=== PATIENT | female | born 1950 | race Caucasian/White ===

== ENCOUNTER 2020-08-13 07:34 | Outpatient (REF) | payer MEDICARE, OTHER, SELFPAY ==
[2020-08-13 09:30] LABS: Alanine Aminotransferase 15 U/L (0-31); Anion Gap 12 (12-20); Aspartate Amino Transferase 23 U/L (5-31); Blood Urea Nitrogen 21 mg/dL (9-16); Calcium 9.4 mg/dL (8.4-10.2); Carbon Dioxide 28 mmol/L (22-29); Chloride 105 mmol/L (96-108); Cholesterol 184 mg/dL; Estimated Glomerular Filt Rate 57; Glucose Fasting 91 mg/dL (60-99); HDL Cholesterol 71 mg/dL; LDL Cholesterol Calculated 97 mg/dl; Potassium 4.8 mmol/l (3.3-5.1); Sodium 140 mmol/L (135-145); Triglycerides 82 mg/dL
[2020-08-13 09:40] LABS: Vitamin D 25-OH Total 37.9 ng/mL (>30)
== END 2020-08-13 07:35 | disposition home or self-care (01) ==
LOC: HO.LAB 07:34
PROVIDERS: PCP Internal Medicine; Visit Provider Internal Medicine
DX: I10 Essential (primary) hypertension (principal); E78.5 Hyperlipidemia, unspecified; Z78.0 Asymptomatic menopausal state
CPT/HCPCS: 80048; 80061; 82306; 84450; 84460

== ENCOUNTER 2020-11-26 10:17 | Outpatient (REF) | payer MEDICARE, OTHER, SELFPAY ==
--- NOTE | 2020-11-26 | MM_ITS ---
EXAMINATION: MM SCREENING DIGITAL BREAST TOMOSYNTHESIS, BILATERAL CLINICAL INFORMATION: Screening. Asymptomatic. The lifetime risk of breast cancer based on the Tyrer-Cuzick Model is 3%. COMPARISON: Mammography: 01/16/2019, 11/15/2017 TECHNIQUE: Digital breast tomosynthesis is performed in both the craniocaudal and mediolateral oblique views along with computer-aided detection (CAD). Synthesized 2D images are generated from the tomosynthesis. FINDINGS: There are scattered areas of fibroglandular density (ACR BI-RADS breast composition Category b). Breast tissue composition borders on heterogeneously dense. There is fine fibronodular parenchymal pattern similar to prior studies. There is no interval mass or architectural abnormality or abnormal calcifications. No significant changes from prior studies. MM/MM tomosynthesis screening BI IMPRESSION: No mammographic evidence of malignancy. ASSESSMENT: BI-RADS 2: Benign RECOMMENDATION: Routine annual mammography screening. This patient's information was entered into a reminder system with a target due date for their next mammogram.
--- NOTE | 2020-11-26 10:20 | MM_ITS ---
EXAMINATION: BONE DENSITOMETRY CLINICAL INDICATION: Menopause. COMPARISON: Previous BD dated 10/08/2018 and baseline BD dated 12/27/2006. TECHNIQUE: Using a [employer] DXA System (software version: 13.1) manufactured by [employer], dual-energy x-ray absorptiometry was performed of the lumbar spine and left hip. The images are of good technical quality. Summary results are attached. FINDINGS: AP SPINE L1-L4: Current: BMD 0.952 g/cm2, Z-score -0.2, T-score -1.9, osteopenia, 9.3% decrease from previous, 1.3% increase from baseline (<5% change is not significant). Prior: BMD 1.050 g/cm2. Baseline: BMD 0.940 g/cm2. LEFT FEMUR, NECK: Current: BMD 0.833 g/cm2, Z-score 0.3, T-score -1.5, osteopenia. Prior: BMD 0.869 g/cm2. Baseline: BMD 0.845 g/cm2. LEFT FEMUR, TOTAL: Current: BMD 0.954 g/cm2, Z-score 1.1, T-score -0.4, normal, 1.3% decrease from previous, 1.3% increase from baseline (<5% change is not significant). Prior: BMD 0.967 g/cm2. Baseline: BMD 0.942 g/cm2. IDENTIFIED RISK FACTORS: Menopause. HISTORY OF FRACTURE: None listed. MEDICATIONS: Calcium or multivitamin. Vitamin D. MM/XR DEXA axial skeleton IMPRESSION: 1. DIAGNOSIS: Osteopenia based on the lowest T-score value of -1.9 in the lumbar spine applying World Health Organization criteria. 2. 10-YEAR FRACTURE RISK PREDICTION, FRAX: Major osteoporotic fracture (clinical spine, forearm, hip or shoulder) 10.4%. Hip fracture 1.6%. 3. Treatment Recommendations: NOF guidelines recommend consideration for treatment in postmenopausal women and men age 50 and older presenting with the following: -A hip or vertebral (clinical or morphometric) fracture. -T-score less than or equal to -2.5 at the femoral neck or spine after appropriate evaluation to exclude secondary causes. -Low bone mass at the hip or spine and a 10-year fracture probability by FRAX of greater than or equal to 3% for hip fracture or greater than or equal to 20% for major osteoporotic fracture based on the [place] adapted WHO algorithm. 4. Other Recommendations: All treatment decisions require clinical judgment and consideration of individual patient factors, including patient preferences, comorbidities, previous drug use, risk factors not captured in the FRAX model (e.g. frailty, falls, vitamin D deficiency, increased bone turnover, interval significant decline in bone density) and possible under or overestimation of fracture risk by FRAX. Additional medical evaluation for secondary cause of low bone mineral density may be appropriate. FUTURE SCAN RECOMMENDATION: People with diagnosed cases of osteoporosis or at high risk for fracture should have regular bone mineral density tests. For patients eligible for Medicare, routine testing is allowed once every 2 years. The testing frequency can be increased to one year for patients who have rapidly progressing disease, those who are receiving or discontinuing medical therapy to restore bone mass, or have additional risk factors.
== END 2020-11-26 10:18 | disposition home or self-care (01) ==
LOC: HO.MAMMO 10:17
PROVIDERS: PCP Internal Medicine; Visit Provider Internal Medicine
DX: Z13.820 Encounter for screening for osteoporosis (principal); Z78.0 Asymptomatic menopausal state; Z79.899 Other long term (current) drug therapy; Z12.31 Encounter for screening mammogram for malignant neoplasm of breast
CPT/HCPCS: 77063; 77067; 77080

== ENCOUNTER 2021-02-21 07:52 | Outpatient (REF) | payer MEDICARE, OTHER, SELFPAY ==
[2021-02-21 09:57] LABS: Alanine Aminotransferase 15 U/L (0-31); Anion Gap 14 (12-20); Aspartate Amino Transferase 21 U/L (5-31); Blood Urea Nitrogen 19 mg/dL (9-16); Calcium 9.3 mg/dL (8.4-10.2); Carbon Dioxide 26 mmol/L (22-29); Chloride 107 mmol/L (96-108); Cholesterol 193 mg/dL; Estimated Glomerular Filt Rate > 60; Glucose Fasting 93 mg/dL (60-99); HDL Cholesterol 75 mg/dL; LDL Cholesterol Calculated 103 mg/dl; Potassium 4.7 mmol/L (3.3-5.1); Sodium 142 mmol/L (135-145); Triglycerides 78 mg/dL
[2021-02-21 10:20] LABS: Vitamin D 25-OH Total 41.4 ng/mL (>30)
== END 2021-02-21 07:53 | disposition home or self-care (01) ==
LOC: HO.LAB 07:52
PROVIDERS: PCP Internal Medicine; Visit Provider Internal Medicine
DX: E78.5 Hyperlipidemia, unspecified (principal); I10 Essential (primary) hypertension; D12.6 Benign neoplasm of colon, unspecified; M85.80 Other specified disorders of bone density and structure, unspecified site; Z78.0 Asymptomatic menopausal state
CPT/HCPCS: 36415; 80048; 80061; 82306; 84450; 84460

== ENCOUNTER 2021-07-12 07:23 | Day surgery (SDC) | payer MEDICARE, OTHER, SELFPAY ==
[2021-07-05 15:08] VITALS: BMI 24.9
--- NOTE | 2021-07-08 09:19 | HO.ANESPROP2 ---
Documented by User: Talya Godfrey NP 07/08/21 09:21 HPI - Anesthesia Eval Consult details Narrative: 71yo F for Colonoscopy PMFSH Active Problems Active Problems: All Active Problems (Updated 07/05/21 @ 14:57 by Sonal Gillis RN) Menopause (Acute) Tubular adenoma of colon (Acute) Osteopenia (Acute) Essential hypertension (Acute) Hyperlipidemia (Acute) Past Medical History Medical History COVID-19 vaccine series completed Essential hypertension Hyperlipidemia Menopause Osteopenia Tubular adenoma of colon Family History Family History Father HTN (hypertension) Diabetes mellitus Bone cancer Mother Hyperlipidemia Brother No problems noted. Brother No problems noted. Brother No problems noted. Son No problems noted. Daughter No problems noted. Surgical History Surgical History (Updated 07/05/21 @ 15:00 by Sonal Gillis RN) H/O colonoscopy History of tubal ligation Social History Social History (Updated 07/05/21 @ 15:01 by Sonal Gillis RN) Household Members: Spouse Patient Tobacco Use Status: Never used Tobacco Use of substances other than those prescribed or required for medical reasons: No Have you been hit, kicked, punched, or otherwise hurt by someone within the past year? If so, by whom?: No Are you DNR?: No Advance Directives: No Advance Directives Information Provided: Yes (states does not have official HCP-is ) Advance Directives on File: No Recently lost weight without trying: No Eating poorly because of decreased appetite: No Nutrition Risks: No Nutritional Risk Poor oral hygiene: No Meds Allergies Allergy/AdvReac Type Severity Reaction Status Date / Time No Known Allergies Allergy Verified 07/12/21 07:26 Home Medications Medication Instructions Recorded Confirmed Last Taken Type cholecalciferol (vitamin D3) 25 25 mcg PO DAILY 08/19/20 07/05/21 Unknown History mcg (1,000 unit) capsule flu vacc 2019-(64yr 0.5 ml IM DIRECTED 11/04/20 02/24/21 Unknown History up)-MF59C(PF) 60 mcg(15 mcgx4)/0.5 mL IM syringe Exam Exam Date and Time: July 08, 2021 0919 Height,Weight and Vital Signs: Height 5 ft 4 in Weight 65.771 kg Assessment and Plan Assessment Anesthesia Assessment: Chart Reviewed Documented by User: Nila Hogue MD 07/12/21 07:51 [facility] Past Medical History Medical History COVID-19 vaccine series completed Essential hypertension Hyperlipidemia Menopause Osteopenia Tubular adenoma of colon Family History Family History Father HTN (hypertension) Diabetes mellitus Bone cancer Mother Hyperlipidemia Brother No problems noted. Brother No problems noted. Brother No problems noted. Son No problems noted. Daughter No problems noted. Family history of problems with anesthesia: No Surgical History Surgical History (Updated 07/05/21 @ 15:00 by Sonal Gillis RN) H/O colonoscopy History of tubal ligation History of Problems with Anesthesia: No Social History Social History (Updated 07/05/21 @ 15:01 by Sonal Gillis RN) Household Members: Spouse Patient Tobacco Use Status: Never used Tobacco Use of substances other than those prescribed or required for medical reasons: No Have you been hit, kicked, punched, or otherwise hurt by someone within the past year? If so, by whom?: No Are you DNR?: No Advance Directives: No Advance Directives Information Provided: Yes (states does not have official HCP-is ) Advance Directives on File: No Recently lost weight without trying: No Eating poorly because of decreased appetite: No Nutrition Risks: No Nutritional Risk Poor oral hygiene: No Meds Allergies Allergy/AdvReac Type Severity Reaction Status Date / Time No Known Allergies Allergy Verified 07/12/21 07:26 Home Medications Medication Instructions Recorded Confirmed Last Taken Type cholecalciferol (vitamin D3) 25 25 mcg PO DAILY 08/19/20 07/05/21 Unknown History mcg (1,000 unit) capsule flu vacc 2020-21(64yr 0.5 ml IM DIRECTED 11/04/20 02/24/21 Unknown History up)-MF59C(PF) 60 mcg(15 mcgx4)/0.5 mL IM syringe Exam Height,Weight and Vital Signs: Height 5 ft 4 in Weight 65.771 kg Vital Signs Temp Pulse Resp BP Pulse Ox 07/12/21 07:31 97.9 F 73 18 104/70 98 Airway Mallampati Class: II TM Dist: >3cm Neck ROM: Full Loose/Missing/Broken Teeth: No Heart: RRR Lungs: CTAB Assessment and Plan Assessment Anesthesia Assessment: Anesthesia Plan Discussed Final Anesthetic Review Family History of Problems with Anesthesia: No History of Problems with Anesthesia: No NPO: Yes ASA Class: II Final Preanesthetic Review: No Changes in Pt Med Stat, Meds/Allgs Chart Reviewed, Consent Obtained/Reviewed and Anes Risks/Benef Reviewed Patient Risk: Low Procedure Risk: Low Assessment/Block/Sedation in SS: Assess/Block/Sedation-SS Anesthetic Plan Anesthetic Plan: MAC: Disposition: Standard PACU
[2021-07-12 07:31] VITALS: BP 104/70; PULSE 73; RESP 18; TEMP 36.6; O2SAT 98
[2021-07-12] MEDS: Lactated Ringers 1,000 ML 100 ML IVCONT (07:42)
--- NOTE | 2021-07-12 07:54 | MHC.SHP ---
Pre-Procedural Eval Section A Date of Service: 07/12/21 Section B Chief Complaint: screening Details of Present Illness: see H&P no changes Relevant Family History (Specify if Yes): No Relevant Social History: None Present Medications: see Short Stay Collaborative assessment Medical History: No relevant PMH History of Previous Operations: No relevant previous surgery Allergies: Allergies Allergy/AdvReac Type Severity Reaction Status Date / Time No Known Allergies Allergy Verified 07/12/21 07:26 Review of Systems Sugical H&P ROS: Negative: Constitution, Cardiovascular, Respiratory, Neurological, Psychiatric, Hem-Onc, Allergic/Immunologic, Gastrointestinal, Genitourinary, Musculoskeletal, Integumentary, Endocrine and Eyes/Ears/Nose/Throat Exam Surgical H&P Exam: Normal: HEENT, Normal: Heart, Normal: Lungs, Normal: Extremities, Normal: Abdomen, Normal: Skin and Normal: Neurological Plan Diagnosis/Plan: Unchanged I have reviewed the history and physical and performed a pertinent physical examination on my patient. No changes have occurred unless specified.
[2021-07-12 08:21] VITALS: BP 83/49; PULSE 66; RESP 16; TEMP 36.3; O2SAT 99
--- NOTE | 2021-07-12 08:26 | PM.OP ---
Brief Operative Note Date of Service: 07/12/21 Pre-op diagnosis: screening Post-op diagnosis: same Procedure: colonoscopy Surgeon: Mark Dubon Anesthesia: MAC Was an Tractor Mechanic Helper used for this Procedure?: No Estimated blood loss (mL): 0 Pathology: none sent Condition: stable Disposition: PACU
[2021-07-12 08:35] VITALS: BP 104/66; PULSE 69; RESP 16; TEMP 36.3; O2SAT 98
--- NOTE | 2021-07-12 08:48 | OP_ITS ---
SURGEON: Mark Dubon MD INDICATIONS: Colon cancer screening, personal history of colon polyps, and family history of colon polyps. PREOPERATIVE DIAGNOSIS: POSTOPERATIVE DIAGNOSIS: PROCEDURE PERFORMED: Colonoscopy to the terminal ileum. ESTIMATED BLOOD LOSS: COMPLICATIONS: ANESTHESIA: ASSISTANTS: SPECIMENS: MEDICATIONS: Monitored anesthesia care. DESCRIPTION OF PROCEDURE: History and physical performed. The risks and benefits of the procedure were explained to the patient. Informed consent was obtained. The patient was placed in left lateral decubitus position. A digital rectal exam was performed and was found to be normal. The Olympus pediatric video colonoscope was introduced into the rectum and advanced to the cecum without difficulty. The cecum was identified by transillumination, palpation, and identification of ileocecal valve. Examination was performed and the scope was removed. She tolerated the procedure well and was taken to recovery area in stable condition. FINDINGS: The terminal ileum was examined and appeared normal. The visualized colonic mucosa was normal. The quality of the prep was good. No polyps were identified. Retroflexed examination showed small internal hemorrhoids. There was mild to moderate sigmoid diverticulosis. IMPRESSION: Normal colonoscopy. RECOMMENDATIONS: 1. Follow up as needed. 2. Repeat colonoscopy is recommended in 5 years because of family history. MD MARCIO Mendez/VENICE / [id number]
== END 2021-07-12 09:20 | disposition home or self-care (01) ==
PROVIDERS: PCP Internal Medicine; Visit Provider Internal Medicine Gastroenterology
PROC: 0DJD8ZZ Inspection of Lower Intestinal Tract, Via Natural or Artificial Opening Endoscopic (ICD-10-PCS; CPT 45378; principal; 2021-07-12 08:00)
DX: Z12.11 Encounter for screening for malignant neoplasm of colon (principal); Z86.010 Personal history of colon polyps; Z83.71 Family history of colonic polyps; K57.30 Diverticulosis of large intestine without perforation or abscess without bleeding; K64.8 Other hemorrhoids; I10 Essential (primary) hypertension; E78.00 Pure hypercholesterolemia, unspecified; Z79.899 Other long term (current) drug therapy
CPT/HCPCS: G0105

== ENCOUNTER 2021-08-31 08:19 | Outpatient (REF) | payer MEDICARE, OTHER, SELFPAY ==
[2021-08-31 09:07] LABS: Alanine Aminotransferase 14 U/L (0-31); Anion Gap 12 (12-20); Aspartate Amino Transferase 24 U/L (5-31); Blood Urea Nitrogen 18 mg/dL (9-16); Calcium 9.8 mg/dL (8.4-10.2); Carbon Dioxide 28 mmol/L (22-29); Chloride 106 mmol/L (96-108); Cholesterol 193 mg/dL; Estimated Glomerular Filt Rate 59; Glucose Fasting 96 mg/dL (60-99); HDL Cholesterol 70 mg/dL; LDL Cholesterol Calculated 110 mg/dl; Potassium 4.8 mmol/L (3.3-5.1); Sodium 141 mmol/L (135-145); Triglycerides 69 mg/dL
[2021-08-31 09:30] LABS: Vitamin D 25-OH Total 36.6 ng/mL (>30)
== END 2021-08-31 08:20 | disposition home or self-care (01) ==
LOC: HO.LAB 08:19
PROVIDERS: PCP Internal Medicine; Visit Provider Internal Medicine
DX: E78.5 Hyperlipidemia, unspecified (principal); I10 Essential (primary) hypertension; M85.80 Other specified disorders of bone density and structure, unspecified site; Z78.0 Asymptomatic menopausal state
CPT/HCPCS: 36415; 80048; 80061; 82306; 84450; 84460

== ENCOUNTER 2022-02-11 07:59 | Outpatient (REF) | payer MEDICARE, OTHER, SELFPAY ==
--- NOTE | ~2022-02-11 | MM_ITS ---
EXAMINATION: MM SCREENING DIGITAL BREAST TOMOSYNTHESIS, BILATERAL CLINICAL INFORMATION: Screening. Asymptomatic. The lifetime risk of breast cancer based on the Tyrer-Cuzick Model is 3%. COMPARISON: Mammography: 11/26/2020, 01/16/2019, 11/15/2017 TECHNIQUE: Digital breast tomosynthesis is performed in both the craniocaudal and mediolateral oblique views along with computer-aided detection (CAD). Synthesized 2D images are generated from the tomosynthesis. Additional right cleavage view is provided. FINDINGS: The breasts are heterogeneously dense, which may obscure small masses (ACR BI-RADS breast composition Category c). There is fine fibronodular parenchymal pattern. Denser breast tissue composition is predominantly in the anterior breasts. The parenchymal pattern is similar to prior studies. There is no developing density. No architectural abnormality. The axilla and skin contours are unremarkable. MM/MM tomosynthesis screening BI IMPRESSION: No mammographic evidence of malignancy. ASSESSMENT: BI-RADS 1: Negative RECOMMENDATION: Routine annual mammography screening. This patient's information was entered into a reminder system with a target due date for their next mammogram.
== END 2022-02-11 08:00 | disposition home or self-care (01) ==
LOC: HO.MAMMO 07:59
PROVIDERS: PCP Internal Medicine; Visit Provider Internal Medicine
DX: Z12.31 Encounter for screening mammogram for malignant neoplasm of breast (principal)
CPT/HCPCS: 77063; 77067

== ENCOUNTER 2022-03-28 10:26 | Outpatient (REF) | payer MEDICARE, OTHER, SELFPAY ==
[2022-03-28 11:22] LABS: Alanine Aminotransferase 15 U/L (0-31); Anion Gap 12 (12-20); Aspartate Amino Transferase 24 U/L (5-31); Blood Urea Nitrogen 22 mg/dL (9-16); Calcium 9.5 mg/dL (8.4-10.2); Carbon Dioxide 27 mmol/L (22-29); Chloride 107 mmol/L (96-108); Cholesterol 200 mg/dL; Estimated Glomerular Filt Rate > 60; Glucose Fasting 92 mg/dL (60-99); HDL Cholesterol 71 mg/dL; LDL Cholesterol Calculated 115 mg/dl; Potassium 4.9 mmol/L (3.3-5.1); Sodium 141 mmol/L (135-145); Triglycerides 71 mg/dL
[2022-03-28 11:45] LABS: Vitamin D 25-OH Total 39.7 ng/mL (>30)
== END 2022-03-28 10:27 | disposition home or self-care (01) ==
LOC: HO.LAB 10:26
PROVIDERS: PCP Internal Medicine; Visit Provider Internal Medicine
DX: E78.5 Hyperlipidemia, unspecified (principal); I10 Essential (primary) hypertension; M85.80 Other specified disorders of bone density and structure, unspecified site; Z78.0 Asymptomatic menopausal state
CPT/HCPCS: 36415; 80048; 80061; 82306; 84450; 84460

== ENCOUNTER 2022-09-04 07:49 | Outpatient (REF) | payer MEDICARE, OTHER, SELFPAY ==
[2022-09-04 09:00] LABS: Alanine Aminotransferase 13 U/L (0-31); Anion Gap 15 (12-20); Aspartate Amino Transferase 21 U/L (5-31); Blood Urea Nitrogen 19 mg/dL (9-16); Calcium 9.5 mg/dL (8.4-10.2); Carbon Dioxide 26 mmol/L (22-29); Chloride 106 mmol/L (96-108); Cholesterol 196 mg/dL; Estimated Glomerular Filt Rate > 60; Glucose Fasting 85 mg/dL (60-99); HDL Cholesterol 75 mg/dL; LDL Cholesterol Calculated 109 mg/dl; Potassium 5.1 mmol/L (3.3-5.1); Sodium 142 mmol/L (135-145); Triglycerides 64 mg/dL
[2022-09-04 09:24] LABS: Vitamin D 25-OH Total 35.7 ng/mL (>30)
== END 2022-09-04 07:50 | disposition home or self-care (01) ==
LOC: HO.LAB 07:49
PROVIDERS: PCP Internal Medicine; Visit Provider Internal Medicine
DX: I10 Essential (primary) hypertension (principal); E78.5 Hyperlipidemia, unspecified; N95.9 Unspecified menopausal and perimenopausal disorder; M85.80 Other specified disorders of bone density and structure, unspecified site
CPT/HCPCS: 36415; 80048; 80061; 82306; 84450; 84460

== ENCOUNTER 2023-02-13 09:39 | Outpatient (REF) | payer MEDICARE, OTHER, SELFPAY ==
--- NOTE | ~2023-02-13 | MM_ITS ---
EXAMINATION: MM SCREENING DIGITAL BREAST TOMOSYNTHESIS, BILATERAL CLINICAL INFORMATION: Screening. Asymptomatic. The lifetime risk of breast cancer based on the Tyrer-Cuzick Model is 3%. COMPARISON: Mammography: 02/11/2022, 11/26/2020, 01/16/2019 TECHNIQUE: Digital breast tomosynthesis is performed in both the craniocaudal and mediolateral oblique views along with computer-aided detection (CAD). Synthesized 2D images are generated from the tomosynthesis. Additional left CC view is provided. FINDINGS: The breasts are heterogeneously dense, which may obscure small masses (ACR BI-RADS breast composition Category c). Fine fibronodular parenchymal pattern is similar to prior studies. There is no developing density or or architectural abnormality. There are no significant masses, abnormal calcifications, or other abnormalities. The axilla and skin contours are unremarkable. No significant changes. MM/MM tomosynthesis screening BI IMPRESSION: No mammographic evidence of malignancy. ASSESSMENT: BI-RADS 1: Negative RECOMMENDATION: Routine annual mammography screening. This patient's information was entered into a reminder system with a target due date for their next mammogram.
== END 2023-02-13 09:40 | disposition home or self-care (01) ==
LOC: HO.MAMMO 09:39
PROVIDERS: PCP Internal Medicine; Visit Provider Internal Medicine
DX: Z12.31 Encounter for screening mammogram for malignant neoplasm of breast (principal)
CPT/HCPCS: 77063; 77067

== ENCOUNTER 2023-03-05 08:36 | Outpatient (REF) | payer MEDICARE, OTHER, SELFPAY ==
[2023-03-05 10:06] LABS: Alanine Aminotransferase 19 U/L (0-31); Aspartate Amino Transferase 25 U/L (5-31); Cholesterol 173 mg/dL; HDL Cholesterol 73 mg/dL; LDL Cholesterol Calculated 89 mg/dl; Triglycerides 57 mg/dL; Vitamin D 25-OH Total 42.8 ng/mL (>30)
== END 2023-03-05 08:37 | disposition home or self-care (01) ==
LOC: HO.LAB 08:36
PROVIDERS: PCP Internal Medicine; Visit Provider Internal Medicine
DX: E78.5 Hyperlipidemia, unspecified (principal); I10 Essential (primary) hypertension; M85.80 Other specified disorders of bone density and structure, unspecified site; Z78.0 Asymptomatic menopausal state
CPT/HCPCS: 36415; 80061; 82306; 84450; 84460

== ENCOUNTER 2023-09-24 07:28 | Outpatient (REF) | payer MEDICARE, OTHER, SELFPAY ==
[2023-09-24 08:50] LABS: Alanine Aminotransferase 14 U/L (0-31); Anion Gap 13 (12-20); Aspartate Amino Transferase 21 U/L (5-31); Blood Urea Nitrogen 15 mg/dL (9-16); Calcium 9.7 mg/dL (8.4-10.2); Carbon Dioxide 28 mmol/L (22-29); Chloride 106 mmol/L (96-108); Cholesterol 216 mg/dL (<200); Estimated Glomerular Filt Rate > 60; Glucose Fasting 105 mg/dL (60-99); HDL Cholesterol 82 mg/dL (>40); LDL Cholesterol Calculated 119 mg/dL (<100); Potassium 4.7 mmol/L (3.3-5.1); Sodium 142 mmol/L (135-145); Triglycerides 75 mg/dL (<150)
[2023-09-24 09:05] LABS: Vitamin D 25-OH Total 40.4 ng/mL (>30)
== END 2023-09-24 07:29 | disposition home or self-care (01) ==
LOC: HO.LAB 07:28
PROVIDERS: PCP Internal Medicine; Visit Provider Internal Medicine
DX: M85.80 Other specified disorders of bone density and structure, unspecified site (principal); I10 Essential (primary) hypertension; E78.5 Hyperlipidemia, unspecified; Z78.0 Asymptomatic menopausal state
CPT/HCPCS: 36415; 80048; 80061; 82306; 84450; 84460

== ENCOUNTER 2023-10-02 08:54 | Outpatient (AMB) | payer MEDICARE, OTHER, SELFPAY ==
--- NOTE | 2023-10-02 08:59 | AM.OFFVISMDC ---
Intake Vital Signs 10/02/23 09:04 Height 5 ft 4 in Weight 141 lb 8 oz BMI 24.3 BP 120/88 Blood Pressure Location Lt brachial Position Sitting Pulse 71 Pulse Source Pulse Oximeter Pulse Oximetry (%) 99 Oxygen Delivery Method Room Air Intake Visit Reasons: SWV [id number] Allergies No Known Allergies Allergy (Verified 10/02/23 14:56) Medication List - Last Reconciled 10/02/23 by Di Gomes MD cholecalciferol (vitamin D3) 25 mcg PO DAILY levocetirizine 5 mg PO BEDTIME metoprolol succinate ER 25 mg PO DAILY simvastatin 20 mg PO Q OTHER DAY HPI SWV G0439 HPI Details SWV ? 73-year-old lady here today for her subsequent? Annual Wellness Visit, initial visit.? She is up-to-date with her screening mammogram, done [id number] anti 3 with negative findings, no longer gets cervical cancer screenings. Her last colonoscopy was done 07/12/[address] Dubon, to be repeated again in 5 years. She had a bone density scan done 11/26/2020 which showed presence of osteopenia in her lumbar spine. She is up-to-date with her flu shot, pneumococcal vaccination, Tdap, and needs her COVID booster and her Shingrix vaccine to be scheduled . She already had her MOLST and healthcare proxy done a year ago, , and copy are in her medical record ? Medical / Social History Reviewed? Past Medical History ?Yes . ? [place] of Care / Care Team list updated ?Yes . ? Surgical/Hospitalization History ?Yes . ? Current Medications (including OTC and supplements) ?Yes . ? Family History ?Yes . ? Tobacco Control form ?Yes . ? AUDIT-C (Alcohol use) form ?Yes . ? Illicit drug use in Social History ?Yes . ? Current diagnosis of depression? ?No ? Appropriate PHQ2/PHQ9 completed ?Yes . ? Data entered by ?[employer] and reviewed by provider ? Fall Risk ? Fall History? Have you had any falls with injury in the past year? ?No . ? Have you had two or more falls in the past year? ?No . ? Fall Risk Assessment: ?No falls in the past year . ? HRA filled out by the patient, reviewed by Provider and scanned. ?SWV ? Balance? Romberg ?Yes . ? Tandem walk ?Yes . ? Walk and Turn ?Yes . ? Rise from sit to stand ?Yes . ?Vision? Corrective lens ?Yes ? Vision screen ? Up-to-date, she sees Dr. Simons ?Hearing? Whisper test ?pass . ?Written Plan?Completed. See Patient Documents.? PFSH Medical History Osteopenia of multiple sites COVID-19 vaccine series completed Menopause Tubular adenoma of colon Osteopenia Essential hypertension Hyperlipidemia Surgical History H/O colonoscopy History of tubal ligation Family History Father HTN (hypertension) Diabetes mellitus Bone cancer Mother Hyperlipidemia Brother No problems noted. Brother No problems noted. Brother No problems noted. Son No problems noted. Daughter No problems noted. Social History Household Members: Spouse Housing: House Patient Tobacco Use Status: Never used Tobacco e-Cigarette/Vaping Use: Never Used Current occupational status: retired Cognitive needs: No Hearing needs: No Vision needs: Yes Questionnaire Medicare Wellness Checkup [age] What gender do you identify with?: female During the past 4 weeks, how much have you been bothered by emotional problems such as feeling anxious, depressed, irritable, sad or downhearted, and blue?: not at all During the past 4 weeks, has your physical & emotional health limited your social activities with family, friends, neighbors, or groups?: not at all During the past 4 weeks, how much bodily pain have you generally had?: no pain During the past 4 weeks, was someone available to help you if you needed & wanted help?: yes, as much as I wanted During the past 4 weeks, what was the hardest physical activity you could do for at least 2 minutes?: moderate Can you get to places out of walking distance without help? (For eg., can you travel alone on buses, taxis or drive your car?): Yes Can you go shopping for groceries or clothes without someone's help?: Yes Can you prepare your own meals?: Yes Can you do your housework without help?: Yes Because of any health problems, do you need the help of another person with your personal care needs such as eating, bathing, dressing or getting around the house?: No Can you handle your own money without help?: Yes During the past 4 weeks, how would you rate your health in general?: excellent During the past 4 weeks how have things been going for you?: very well; could hardly better Are you having difficulties driving your car?: no Do you always fasten your seat belt when you are in a car?: yes, usually During past 4 weeks, have you been bothered by the following: never: Falling or dizzy when standing up, Sexual problems?, Trouble eating well?, Teeth or denture problems? and Problems using the telephone? and seldom: Tiredness or fatigue? Have you fallen 2 or more times in the past year?: No Are you afraid of falling?: No Are you a smoker?: no During the past 4 weeks, how many drinks of wine, beer, or other alcoholic beverages did you have?: 2-5 drinks per week Do you exercise for about 20 minutes 3 or more times a week?: no, I usually do not exercise this much Have you been given information to help with the following?: no: Hazards in your house that might hurt you? and no: Keeping track of your medications? How often do you have trouble taking medicines the way you have been told to take them?: I always take medicine as prescribed How confident are you that you can control & manage most of your health problems?: very confident What is your race?: White Mini Mental State Exam (MMSE) Orientation What is the (year) (season) (date) (day) (month)?: year (2022), season (Fall), date (10/02/2023), day (Sunday) and month (September) Where are we (state) (county) (town or city) (hospital) (floor)?: state ([place]), county ([place]), town or city ([place]) and hospital/clinic ([facility]) Score Score: 9 Activity of Daily Living Bathing - sponge bath, tub bath or shower: receives no assistance (gets in/out by self, if usual bathing means Dressing - getting clothes from closets & drawers, including inner/outer garments & fasteners.: gets clothes & gets completely dressed without help Toileting - going to the 'toilet room' for urine/bowel elimination & cleaning self/arranging clothes: goes to toilet room, cleans self, arranges clothes without help Transfer: moves in & out of bed and chair without help (may use support object) Continence: controls urination/bowel movements completely by self Feeding: feeds self without help Total Score: 0 Information obtained from: patient Using telephone: independent Traveling: independent Shopping: independent Preparing meals: independent Housework: independent Taking medicine: independent Managing money: independent PHQ-9 Over the last 2 weeks, how often have you been bothered by any of the following problems? 1. Little interest or pleasure in doing things: not at all 2. Feeling down, depressed, or hopeless: not at all 3. Trouble falling or staying asleep, or sleeping too much: several days 4. Feeling tired or having little energy: several days 5. Poor appetite or overeating: not at all 6. Feeling bad about yourself - or that you are a failure or have let yourself or your family down: not at all 7. Trouble concentrating on things, such as reading the newspaper or watching television: not at all 8. Moving or speaking so slowly that other people could have noticed. Or the opposite - being so fidgety or restless that you have been moving around a lot more than usual: not at all 9. Thoughts that you would be better off or of hurting yourself in some way: not at all Total score: 2 Depression Screening Interpretation: Negative Depression Screening Done: Yes [id number] - PHQ-9 Billing: Yes Source: Developed by Drs. Krish Zarate, Mariana Brower, Jarrell Shaw and colleagues, with an educational elva from [employer]. Physical Exam Vital Signs: Last Vital Signs Pulse 71 10/02/23 09:04 BP 120/88 10/02/23 09:04 Pulse Ox 99 10/02/23 09:04 Oxygen Delivery Method Room Air 10/02/23 09:04 BMI result Body Mass Index 24.3 Results Reviewed Results Reviewed: ENTERED: 09/24/2337 [facility] [address]: ORDERED: Met Prof Fast, AST, ALT, Lipid Panel, Vitamin D 25-OH Test Result Flag Reference Site Sodium 142 135-145 mmol/L Potassium 4.7 3.3-5.1 mmol/L CL 106 96-108 mmol/L CO2 28 22-29 mmol/L Gap 13 12-20 BUN 15 9-16 mg/dL Creat 0.87 0.5-1.4 mg/dL EGFR > 60 NOTE: For -Prydeinig individuals, multiply the result by 1.210. Chronic Kidney Disease: Estimated GFR < 60 mL/min/1.73m2 Severe Kidney Disease: Estimated GFR < 15 mL/min/1.73m2 FBS 105 H 60-99 mg/dL A fasting glucose from 100-125 mg/dl is considered impaired (pre-diabetes). CA 9.7 8.4-10.2 mg/dL AST (GOT) 21 5-31 U/L ALT (GPT) 14 0-31 U/L Triglyceride 75 <150 mg/dL Desirable Triglyceride: less than 150 mg/dL Borderline High Triglyceride 150-199 mg/dL High Triglyceride: 200-499 mg/dL Very High Triglyceride: greater than or equal to 5OO mg/dL Cholesterol 216 H <200 mg/dL Desirable Cholesterol: less than 200 mg/dL Borderline High Cholesterol: 200-239 mg/dL High Cholesterol: greater than 239 mg/dL LDL Calculated 119 H <100 mg/dL Desirable LDL: less than 100 mg/dL Near Optimal/Above Optimal LDL: 110-129 mg/dL Borderline High LDL: 130-159 mg/dL High LDL: 160-189 mg/dL Very High LDL: greater than or equal to 190 mg/dL HDL 82 >40 mg/dL Desirable HDL: greater than 40 mg/dL Note: This HDL assay may give artificially low results in patients with liver disease. Vit D 25-OH Tot 40.4 >30 ng/mL Health Based Reference Values* < 20 ng/mL Deficient 20-30 ng/mL Insufficient > 30 ng/mL Sufficient Assessment & Plan Assessment & Plan (1) Encounter for subsequent annual wellness visit (AWV) in Medicare patient: Code(s): Z00.00 - Encounter for general adult medical examination without abnormal findings Plan: Medical wellness checklist discussed with patient, reviewed and updated, copy given. Advanced directives already completed , and on file. (2) Osteopenia of multiple sites: Code(s): M85.89 - Other specified disorders of bone density and structure, multiple sites Plan: Bone density scan ordered, to be scheduled together with next mammogram appointment (3) Tubular adenoma of colon: Comment: Excised during screening colonoscopy 10/13/[address] Dubon Last colonoscopy done by Dr. Reis for 07/12/2021 showed normal findings, but repeat in 5 years due to positive family history Code(s): D12.6 - Benign neoplasm of colon, unspecified (4) Essential hypertension: Code(s): I10 - Essential (primary) hypertension Plan: Continue metoprolol succinate ER 25 mg daily (5) Hyperlipidemia: Code(s): E78.5 - Hyperlipidemia, unspecified Qualifiers: Hyperlipidemia type: pure hypercholesterolemia Qualified Code(s): E78.00 - Pure hypercholesterolemia, unspecified Plan: Continue with simvastatin 20 mg 1 tablet every other day Orders: Orders XR DEXA axial skeleton 10/02/23 M85.89 - Other specified disorders of bone density and structure, multiple sites, Z78.0 - Asymptomatic menopausal state Quality Reporting (2019) Depression/Bipolar (159/160/161/177) PHQ-9: Total score: 2 Coding Level of Care Code Medicare Subsequent (G0439) Diagnoses Encounter for subsequent annual wellness visit (AWV) in Medicare patient Z00.00 Osteopenia of multiple sites M85.89 Tubular adenoma of colon D12.6 Essential hypertension I10 Pure hypercholesterolemia E78.00 Hyperlipidemia type: pure hypercholesterolemia CPT Codes Advance Care Planning - Advance Care Planning discussion: On file, no changes ([id number]) Advance Care Planning - Time spent: 1-15 minutes, on File ([id number]) Advance Care Planning Advance Care Planning discussion: On file, no changes Date of discussion: 10/02/23 Who was present: Patient Forms completed: Health Care Proxy and MOLST Time spent: 1-15 minutes, on File Actual minutes spent: 15
[2023-10-02 09:04] VITALS: BP 120/88; PULSE 71; O2SAT 99; BMI 24.3
== END 2023-10-02 11:54 | disposition home or self-care (01) ==
PROVIDERS: PCP Internal Medicine; Visit Provider Internal Medicine
DX: Z00.00 Encounter for general adult medical examination without abnormal findings (principal); M85.89 Other specified disorders of bone density and structure, multiple sites; D12.6 Benign neoplasm of colon, unspecified; I10 Essential (primary) hypertension; E78.00 Pure hypercholesterolemia, unspecified
CPT/HCPCS: 1123F; G0439

== ENCOUNTER 2024-02-19 08:40 | Outpatient (REF) | payer MEDICARE, OTHER, SELFPAY ==
--- NOTE | ~2024-02-19 | MM_ITS ---
EXAMINATION: BONE DENSITOMETRY CLINICAL INDICATION: Osteopenia. COMPARISON: Previous BD dated 11/26/2020 and baseline BD dated 12/27/2006. TECHNIQUE: Using a [employer] DXA System (software version: 13.1) manufactured by [employer], dual-energy x-ray absorptiometry was performed of the lumbar spine and left hip. The images are of good technical quality. Summary results are attached. FINDINGS: LEFT FEMUR, NECK: Current: BMD 0.842 g/cm2, Z-score 0.5, T-score -1.4, osteopenia. Prior: BMD 0.833 g/cm2. Baseline: BMD 0.845 g/cm2. LEFT FEMUR, TOTAL: Current: BMD 0.918 g/cm2, Z-score 1.0, T-score -0.7, normal, 3.8% decrease from previous, 2.5% decrease from baseline (<5% change is not significant). Prior: BMD 0.954 g/cm2. Baseline: BMD 0.942 g/cm2. AP SPINE L1-L4: Current: BMD 0.875 g/cm2, Z-score -0.7, T-score -2.5, osteoporosis, 8.1% decrease from previous, 6.9% decrease from baseline (<5% change is not significant). Prior: BMD 0.952 g/cm2. Baseline: BMD 0.940 g/cm2. IDENTIFIED RISK FACTORS: Menopause. HISTORY OF FRACTURE: None listed. MEDICATIONS: Vitamin D. MM/XR DEXA axial skeleton IMPRESSION: 1. DIAGNOSIS: Osteoporosis based on the lowest T-score value of -2.5 in the lumbar spine applying World Health Organization criteria. 2. 10-YEAR FRACTURE RISK PREDICTION, FRAX: According to the guidelines, FRAX calculation should only be performed on patients in the osteopenia bone density category. Therefore, FRAX was not performed on this patient. 3. Treatment Recommendations: NOF guidelines recommend consideration for treatment in postmenopausal women and men age 50 and older presenting with the following: -A hip or vertebral (clinical or morphometric) fracture. -T-score less than or equal to -2.5 at the femoral neck or spine after appropriate evaluation to exclude secondary causes. -Low bone mass at the hip or spine and a 10-year fracture probability by FRAX of greater than or equal to 3% for hip fracture or greater than or equal to 20% for major osteoporotic fracture based on the [place] adapted WHO algorithm. 4. Other Recommendations: All treatment decisions require clinical judgment and consideration of individual patient factors, including patient preferences, comorbidities, previous drug use, risk factors not captured in the FRAX model (e.g. frailty, falls, vitamin D deficiency, increased bone turnover, interval significant decline in bone density) and possible under or overestimation of fracture risk by FRAX. Additional medical evaluation for secondary cause of low bone mineral density may be appropriate. FUTURE SCAN RECOMMENDATION: People with diagnosed cases of osteoporosis or at high risk for fracture should have regular bone mineral density tests. For patients eligible for Medicare, routine testing is allowed once every 2 years. The testing frequency can be increased to one year for patients who have rapidly progressing disease, those who are receiving or discontinuing medical therapy to restore bone mass, or have additional risk factors.
== END 2024-02-19 08:41 | disposition home or self-care (01) ==
LOC: HO.MAMMO 08:40
PROVIDERS: PCP Internal Medicine; Visit Provider Internal Medicine
DX: Z12.31 Encounter for screening mammogram for malignant neoplasm of breast (principal); Z13.820 Encounter for screening for osteoporosis; Z78.0 Asymptomatic menopausal state; M85.89 Other specified disorders of bone density and structure, multiple sites
CPT/HCPCS: 77063; 77067; 77080

== ENCOUNTER → 2024-02-19 08:45 | Outpatient (BNV) | payer MEDICARE, OTHER, SELFPAY | PROVIDERS: PCP Internal Medicine; Visit Provider Radiology Diagnostic Radiology | DX: Z12.31 Encounter for screening mammogram for malignant neoplasm of breast (principal) | CPT/HCPCS: 77063; 77067 ==

== ENCOUNTER 2024-03-26 07:13 | Outpatient (REF) | payer MEDICARE, OTHER, SELFPAY ==
[2024-03-26 08:46] LABS: Anion Gap 14 (12-20); Blood Urea Nitrogen 18 mg/dL (9-16); Calcium 9.8 mg/dL (8.4-10.2); Carbon Dioxide 26 mmol/L (22-29); Chloride 106 mmol/L (96-108); Estimated Glomerular Filt Rate 58; Glucose Fasting 91 mg/dL (60-99); Potassium 4.3 mmol/L (3.3-5.1); Sodium 142 mmol/L (135-145)
== END 2024-03-26 07:14 | disposition home or self-care (01) ==
LOC: HO.LAB 07:13
PROVIDERS: PCP Internal Medicine; Visit Provider Internal Medicine
DX: M85.80 Other specified disorders of bone density and structure, unspecified site (principal); Z78.0 Asymptomatic menopausal state; I10 Essential (primary) hypertension; E78.5 Hyperlipidemia, unspecified
CPT/HCPCS: 36415; 80048

== ENCOUNTER 2024-04-01 09:19 | Outpatient (AMB) | payer MEDICARE, OTHER, SELFPAY ==
--- NOTE | 2024-04-01 09:55 | MHC.PC.OV ---
Vital Signs 04/01/24 09:56 Height 5 ft 4 in Weight 143 lb BMI 24.5 BP 120/84 Blood Pressure Location Rt brachial Position Sitting Pulse 71 Pulse Source Pulse Oximeter Pulse Oximetry (%) 97 Oxygen Delivery Method Room Air Intake Visit Reasons: office visit complex, too early for pe Intake Note: Pt is here today for her lab results Allergies No Known Allergies Allergy (Verified 04/01/24 10:40) Medication List - Last Reconciled 04/01/24 by Di Gomes MD cholecalciferol (vitamin D3) 25 mcg PO DAILY levocetirizine 5 mg PO BEDTIME metoprolol succinate ER 25 mg PO DAILY simvastatin 20 mg PO Q OTHER DAY Tobacco use date assessed: 04/01/24 Fall risk assessment: No Falls in past year Last assessed Fall Risk: 04/01/24 Dental Screening Dental Screen Date: 04/01/24 Did you have a dental visit in the last 12 months?: Yes Did you have a dental problem in the last 6 months where you did not have access to dental care?: No Was dental information given to patient?: Patient has dentist HPI office visit complex, too early for pe HPI Details 73-year-old lady with hypertension , hyperlipidemia as well as allergic rhinitis, here today for her follow-up. Fasting labs done a week ago showed normal electrolytes, renal function was mildly decreased, normal fasting glucose and calcium levels. Blood pressure has been stable and controlled on metoprolol succinate ER 25 mg daily. However fasting lipids were not checked, ordered today. Has been taking simvastatin 20 mg every other day for control of her lipids. Seasonal allergies are controlled with taking liver cetirizine 5 mg at bedtime. She has osteoporosis in her lumbar spine with his T-score of-2.5, normal in her left femur and mild osteopenia with a T-score of-1.4 in her left femoral neck seen on recent bone density scan done 02/23/2024. No history of fracture currently takes cholecalciferol 25 mcg taken once a day and has been staying active in her yard. [facility] Medical History (Updated 04/16/24 @ 02:01 by Di Gomes MD) Seasonal allergies Osteoporosis of lumbar spine Osteopenia of multiple sites COVID-19 vaccine series completed Menopause Tubular adenoma of colon Osteopenia Essential hypertension Hyperlipidemia Surgical History H/O colonoscopy History of tubal ligation Family History Father HTN (hypertension) Diabetes mellitus Bone cancer Mother Hyperlipidemia Brother No problems noted. Brother No problems noted. Brother No problems noted. Son No problems noted. Daughter No problems noted. Social History Household Members: Spouse Housing: House Patient Tobacco Use Status: Never used Tobacco e-Cigarette/Vaping Use: Never Used Current occupational status: retired Cognitive needs: No Hearing needs: No Vision needs: Yes Questionnaire PHQ-9 Over the last 2 weeks, how often have you been bothered by any of the following problems? 1. Little interest or pleasure in doing things: not at all 2. Feeling down, depressed, or hopeless: not at all 3. Trouble falling or staying asleep, or sleeping too much: several days 4. Feeling tired or having little energy: not at all 5. Poor appetite or overeating: not at all 6. Feeling bad about yourself - or that you are a failure or have let yourself or your family down: not at all 7. Trouble concentrating on things, such as reading the newspaper or watching television: not at all 8. Moving or speaking so slowly that other people could have noticed. Or the opposite - being so fidgety or restless that you have been moving around a lot more than usual: not at all 9. Thoughts that you would be better off or of hurting yourself in some way: not at all Total score: 1 Depression Screening Interpretation: Negative Depression Screening Done: Yes 62640 - PHQ-9 Billing: Yes Source: Developed by Drs. Krish Zarate, Mariana Brower, Jarrell Shaw and colleagues, with an educational elva from [employer]. Thrive Questionnaire Date Thrive assessed: 04/01/24 I am a: Patient What is your living situation today?: I have a steady place to live Within the past 12 months, did the food you bought not last and you didn't have the money to get more?: Never true Within the past 12 months, did you worry whether your food would run out before you got money to buy more?: Never true Do you have trouble paying for medicines?: No Do you have trouble getting transportation to medical appointments?: No Do you have trouble paying your heating and electricity bill?: No Do you have trouble taking care of your child, family member or friend?: No Do you have trouble with day-to-day activities such as bathing, preparing meals, shopping, managing finances, etc.?: No Are you currently unemployed and looking for a job?: No Are you interested in more education?: No THRIVE Score: 0 AUDIT C Alcohol Use Questionnaire (AUDIT-C) 1. How often do you have a drink containing alcohol?: Monthly or less 2. How many drinks containing alcohol do you have on a typical day when you are drinking?: 1 or 2 3. How often do you have six or more drinks on one occasion?: Never Total Score: 1 LORI-7 AMB Questionnaire LORI-7 Date LORI - 7 assessed: 04/01/24 Feeling nervous, anxious, or on edge: 0 = Not at all Not being able to stop or control worryin = Not at all Worrying too much about different things: 0 = Not at all Trouble relaxin = Not at all Being so restless that it is hard to sit still: 0 = Not at all Becoming easily annoyed or irritable: 0 = Not at all Feeling afraid as if something awful might happen: 0 = Not at all Total LORI-7 score (0-4 normal; 5-9 mild; 10-14 moderate; 15-21 severe): 0 Source: Developed by Drs. Krish Zarate, Mariana Brower, Jarrell Shaw and colleagues, with an educational elva from [employer]. LORI-7 Assessment Billing LORI-7 Assessment Tool: LORI-7 Assessment 16861 Review of Systems Const Denies body aches, Denies chills, Denies difficulty sleeping, Denies fatigue, Denies fever(s) and Denies headache(s) Eyes Details: Sees Dr. Simons Denies change in vision ENT Denies dizziness, Denies headache(s), Denies nasal congestion, Denies disequilibrium and Denies sore throat Card Denies chest pain, Denies irregular heart rhythm, Denies lightheadedness, Denies palpitations and Denies dyspnea Resp Denies cough and Denies dyspnea GI Denies abdominal pain, Denies change in bowel habits, Denies change in stool character, Denies dyspepsia, Denies heartburn and Denies nausea Denies hematuria, Denies hot flashes, Denies dysuria and Denies urinary hesitancy Musc Denies back pain, Denies myalgias, Denies joint swelling, Denies muscle weakness and Denies stiffness Skin/Breast Denies unusual bruising Neuro Denies dizziness, Denies headache(s) and Denies disequilibrium Endo Denies fatigue and Denies palpitations Aller/Immun Reports seasonal rhinorrhea Physical exam (Primary Care) Vital Signs: Last Vital Signs Pulse 71 04/01/24 09:56 BP 120/84 04/01/24 09:56 Pulse Ox 97 04/01/24 09:56 Oxygen Delivery Method Room Air 04/01/24 09:56 BMI result Body Mass Index 24.5 Tobacco/Smoking Status: Tobacco use Status Tobacco use date assessed 04/01/24 04/01/24 10:00 Patient Tobacco Use Status Never used Tobacco 04/01/24 10:00 e-Cigarette/Vaping Use Never Used 04/01/24 10:00 PHQ-9: PHQ-9 Score PHQ-9: Total score 1 04/08/24 00:49 Depression Screening Interpretation: Negative Thrive Assessment: Date of Thrive Assessment Date Thrive assessed 04/01/24 04/01/24 10:00 Const General: comfortable, no acute distress and alert Orientation/consciousness: patient oriented x3 HENMT Ears: external ears normal General nose exam: Normal external nose present and No nasal discharge present Mouth: Normal oral and palatal mucosa present and moist mucous membranes Eyes General: appearance normal, both eyes and all related structures Neck Neck: Yes full ROM, Yes no lymphadenopathy and Yes supple Resp Effort & Inspection: normal respiratory effort and able to speak in complete sentences Auscultation: clear to auscultation bilaterally Cardio Rate: regular rate Rhythm: regular rhythm Heart sounds: S1 normal heart sound present and S2 normal heart sound present GI Palpation (GI): Soft to palpation, nontender and no masses Auscultation: normal bowel sounds Back/Spine/Pelvis Back: No back tenderness Skin General skin exam: no rashes or lesions noted Neuro General: patient oriented x3, gait normal, tone normal, moves all extremities, Normal light touch and pain sensation and no focal motor deficits Cranial nerves: Yes CN's II-XII intact bilaterally Cognition (Neuro): normal cognition Extrem General: Yes full ROM, Yes no joint enlargement, Yes no clubbing, cyanosis or edema and Yes no calf tenderness Results Reviewed Results Reviewed: nima: Alicia Dunbar Age/Sex: 73/F : 1950 Unit#: [id number] Attend Dr: Di oGmes MD Re03/26/24 Status: DEP REF Location: .LAB Disch: SPEC : [id number] DIMAS: 03/26/24 STATUS: COMP REQ : [id number] RECD: 03/26/[address]: Di Gomes MD COMP: 03/26/24 ENTERED: 03/26/24 [facility] DR: ORDERED: Met Prof Fast Test Result Flag Reference Sodium 142 135-145 mmol/L Potassium 4.3 3.3-5.1 mmol/L CL 106 96-108 mmol/L CO2 26 22-29 mmol/L Gap 14 12-20 BUN 18 H 9-16 mg/dL Creat 0.95 0.5-1.4 mg/dL EGFR 58 NOTE: For -Ivorian individuals, multiply the result by 1.210. Chronic Kidney Disease: Estimated GFR < 60 mL/min/1.73m2 Severe Kidney Disease: Estimated GFR < 15 mL/min/1.73m2 FBS 91 60-99 mg/dL CA 9.8 8.4-10.2 mg/dL Assessment and Plan Assessment & Plan (1) Hyperlipidemia: Code(s): E78.5 - Hyperlipidemia, unspecified Qualifiers: Hyperlipidemia type: pure hypercholesterolemia Qualified Code(s): E78.00 - Pure hypercholesterolemia, unspecified Plan: Fasting lipid panel ordered today, in the meantime continue with simvastatin 20 mg taken 1 tablet every other day and continue with healthy eating habits and regular exercise. (2) Osteoporosis of lumbar spine: Code(s): M81.0 - Age-related osteoporosis without current pathological fracture Plan: Continue taking cholecalciferol 25 mcg taken once a day, continue regular weight-bearing exercise. Take adequate calcium from dietary sources. referred to endocrine clinic for further evaluation and discuss treatment options if needed for her osteoporosis (3) Essential hypertension: Code(s): I10 - Essential (primary) hypertension Plan: Blood pressure at goal of less than 130/80. Continue with current medication. Reinforced importance of following a low sodium diet, getting regular exercise, and lowering stress levels. (4) Seasonal allergies: Code(s): J30.2 - Other seasonal allergic rhinitis Plan: Continue with levo cetirizine 5 mg 1 tablet at bedtime as needed Orders: Orders Lipid Panel 04/01/24 Z78.0 - Asymptomatic menopausal state, E78.00 - Pure hypercholesterolemia, unspecified Vitamin D 25-OH Total 04/01/24 Z78.0 - Asymptomatic menopausal state, E78.00 - Pure hypercholesterolemia, unspecified Referrals Endocrinology Referral M81.0 - Age-related osteoporosis without current pathological fracture Coding Level of Care Code Est Pt Level 4 (94568) Complex EM visit Add On G2211 Diagnoses Pure hypercholesterolemia E78.00 Hyperlipidemia type: pure hypercholesterolemia Osteoporosis of lumbar spine M81.0 Essential hypertension I10 Seasonal allergies J30.2 Additional Codes LORI-7 Assessment Billing - LORI-7 Assessment Tool: LORI-7 Assessment 49622 ([id number])
[2024-04-01 09:56] VITALS: BP 120/84; PULSE 71; O2SAT 97; BMI 24.5
== END 2024-04-01 10:58 | disposition home or self-care (01) ==
PROVIDERS: PCP Internal Medicine; Visit Provider Internal Medicine
DX: E78.00 Pure hypercholesterolemia, unspecified (principal); M81.0 Age-related osteoporosis without current pathological fracture; I10 Essential (primary) hypertension; J30.2 Other seasonal allergic rhinitis
CPT/HCPCS: 99214; G2211

== ENCOUNTER → 2024-06-18 10:24 | Outpatient (BNVA) | payer MEDICARE, OTHER, SELFPAY | PROVIDERS: PCP Internal Medicine; Visit Provider Surgery | DX: L98.9 Disorder of the skin and subcutaneous tissue, unspecified (principal) | CPT/HCPCS: 99202 ==

== ENCOUNTER 2024-06-18 10:34 | Outpatient (AMB) | payer MEDICARE, OTHER, SELFPAY ==
[2024-06-18 10:29] VITALS: BMI 24.5
--- NOTE | 2024-06-18 10:29 | A.OFFVIS_ITS ---
Vital Signs 06/18/24 10:29 Height 5 ft 4 in Weight 143 lb 0.01 oz BMI 24.5 Intake Visit Reasons: Skin lesion Intake Note: This patient presents for Skin lesion assessment. Patient c/o; Onset 40 years, left elbow skin lesion. 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 She says that she has had this for many years. She has been going to the vendor relationship manager and she says her vendor relationship manager ?freezes? this every few months. She now wants to proceed with excision. She says that the lesion hips recurring and increasing in size PFS Medical History (Updated 06/18/24 @ 10:41 by Lobito Coronado MD) Skin lesion of left arm Seasonal allergies Osteoporosis of lumbar spine Osteopenia of multiple sites COVID-19 vaccine series completed Menopause Tubular adenoma of colon Osteopenia Essential hypertension Hyperlipidemia Surgical History H/O colonoscopy History of tubal ligation Family History Father HTN (hypertension) Diabetes mellitus Bone cancer Mother Hyperlipidemia Brother No problems noted. Brother No problems noted. Brother No problems noted. Son No problems noted. Daughter No problems noted. Social History Household Members: Spouse Housing: House Patient Tobacco Use Status: Never used Tobacco e-Cigarette/Vaping Use: Never Used Current occupational status: retired Cognitive needs: No Hearing needs: No Vision needs: Yes Review of Systems Const Denies chills and Denies fever(s) Card Denies chest pain, Denies dyspnea and Denies dyspnea on exertion Resp Denies cough, Denies dyspnea and Denies dyspnea on exertion GI Denies hematochezia and Denies change in bowel habits Denies hematuria Musc Denies back pain and Denies limited range of motion Neuro Denies focal weakness and Denies convulsions Psych Denies depression and Denies mood swings Physical Exam Vital Signs: BMI result Body Mass Index 24.5 Const General: comfortable and no acute distress Orientation/consciousness: patient oriented x3 Neck Neck: Yes no lymphadenopathy Resp Auscultation: clear to auscultation bilaterally Cardio Rhythm: regular rhythm GI Palpation (GI): Soft to palpation, nontender and no guarding Neuro General: patient oriented x3 Extrem Other: Left elbow - skin lesion about 1 cm, fleshy looking, irregular, smooth, with a narrow base Assessment & Plan Assessment & Plan (1) Skin lesion of left arm: Code(s): L98.9 - Disorder of the skin and subcutaneous tissue, unspecified Category: Medical Plan: She had 2 proceed with excision. I explained to her the technique of excision under local anesthesia. I reviewed the risks including but not limited to bleeding, infections, poor healing, as well as the benefits and alternatives She understands and wants to proceed. This will be done on her next visit in the office. Coding Level of Care Code New Pt Level 3 (99600) Diagnoses Skin lesion of left arm L98.9
== END 2024-06-18 10:41 | disposition home or self-care (01) ==
PROVIDERS: PCP Internal Medicine; Visit Provider Surgery
DX: L98.9 Disorder of the skin and subcutaneous tissue, unspecified (principal)
CPT/HCPCS: 99204

== ENCOUNTER 2024-06-25 11:09 | Outpatient (REF) | payer MEDICARE, OTHER, SELFPAY | END 2024-06-25 11:10 | disposition home or self-care (01) | LOC: HO.LNP 11:09 | PROVIDERS: PCP Internal Medicine; Visit Provider Surgery | DX: B07.8 Other viral warts (principal) | CPT/HCPCS: 11402; 88305 ==

== ENCOUNTER 2024-06-25 11:09 | Outpatient (AMB) | payer MEDICARE, OTHER, SELFPAY ==
--- NOTE | 2024-06-25 11:13 | MHC.OFFVIS ---
Intake Visit Reasons: Excision Skin lesion Intake Note: Office procedure: Excision Skin lesion of elbow Outside Sales Representative Insurance Required: No Accompanied by: Self / Same As Patient Allergies No Known Allergies Allergy (Verified 06/25/24 11:14) HPI HPI Excision Skin lesion: Details: She is here for excision of a skin lesion. [facility] Medical History Skin lesion of left arm Seasonal allergies Osteoporosis of lumbar spine Osteopenia of multiple sites COVID-19 vaccine series completed Menopause Tubular adenoma of colon Osteopenia Essential hypertension Hyperlipidemia Surgical History H/O colonoscopy History of tubal ligation Family History Father HTN (hypertension) Diabetes mellitus Bone cancer Mother Hyperlipidemia Brother No problems noted. Brother No problems noted. Brother No problems noted. Son No problems noted. Daughter No problems noted. Social History Household Members: Spouse Housing: House Patient Tobacco Use Status: Never used Tobacco e-Cigarette/Vaping Use: Never Used Current occupational status: retired Cognitive needs: No Hearing needs: No Vision needs: Yes Office Procedures Excision Details: She was in reclining position. The area of the skin lesion on the left elbow was prepped and draped. This had been marked after she had pointed this. Lidocaine 1 % was used for local anesthesia. I made an elliptical incision on the skin surrounding this lesion with a blade 15. And this was carried down through the full-thickness of the skin. We area excised was about 1 cm in diameter. The incision was closed with full-thickness nylon 3-0 interrupted sutures. Dressings were applied. The procedure was completed. [id number]/arms/legs 0.6-1cm Procedure code (CPT) selection complete Assessment & Plan Assessment & Plan (1) Skin lesion of left arm: Code(s): L98.9 - Disorder of the skin and subcutaneous tissue, unspecified Category: Medical Plan: Excision was done without complications. She tolerated procedure well. She was given wound care instructions and will be seen in the office for removal sutures Coding Level of Care Code Procedure Only Diagnoses Skin lesion of left arm L98.9 CPT Codes Trunk/Arms/Legs - CPT: [id number]/arms/legs 0.6-1cm ([id number])
== END 2024-06-25 11:31 | disposition home or self-care (01) ==
PROVIDERS: PCP Internal Medicine; Visit Provider Surgery
DX: B07.9 Viral wart, unspecified (principal); L98.9 Disorder of the skin and subcutaneous tissue, unspecified
CPT/HCPCS: 11402

== ENCOUNTER 2024-06-30 09:53 | Outpatient (AMB) | payer MEDICARE, OTHER, SELFPAY ==
[2024-06-30 10:03] VITALS: BP 122/82; PULSE 72; TEMP 36.5; O2SAT 96; BMI 25.2
--- NOTE | 2024-06-30 10:03 | AM.OFFWIN_ITS ---
Intake Vital Signs 06/30/24 10:03 Height 5 ft 4 in Weight 147 lb BMI 25.2 BP 122/82 Blood Pressure Location Rt brachial Position Sitting Pulse 72 Pulse Source Pulse Oximeter Temp 97.7 F Temp Source Oral Pulse Oximetry (%) 96 Oxygen Delivery Method Room Air Intake Visit Reasons: EP- RT ankle pain Intake Note: Pt is here today c/o Rt foot pain, no injury noted Patient Tobacco Use Status: Never used Tobacco Allergies No Known Allergies Allergy (Verified 06/30/24 10:05) HPI EP- RT ankle pain HPI Details This note is constructed using voice recognition software. While every effort has been made to ensure accuracy, combined rail operator errors may have been included. The patient is a 74 year old female who presents to the clinic today with right medial maleoulus without any known injury. She notes the pain is worse when she wakes up in the morning or first starts walking on it after a period of time. She denies numbness, tingling, reduced ROM or strength, swelling, redness, warmth, injury, previous surgery to the ankle. She tried otc motrin for pain, and it helped. The pain is mild in nature. [facility] Medical History Skin lesion of left arm Seasonal allergies Osteoporosis of lumbar spine Osteopenia of multiple sites COVID-19 vaccine series completed Menopause Tubular adenoma of colon Osteopenia Essential hypertension Hyperlipidemia Surgical History H/O colonoscopy History of tubal ligation Family History Father HTN (hypertension) Diabetes mellitus Bone cancer Mother Hyperlipidemia Brother No problems noted. Brother No problems noted. Brother No problems noted. Son No problems noted. Daughter No problems noted. Social History Household Members: Spouse Housing: House Patient Tobacco Use Status: Never used Tobacco e-Cigarette/Vaping Use: Never Used Current occupational status: retired Cognitive needs: No Hearing needs: No Vision needs: Yes Review of Systems Const All systems reviewed & are unremarkable except as noted in HPI and below Physical Exam Vital Signs: Last Vital Signs Temp 97.7 F 06/30/24 10:03 Pulse 72 06/30/24 10:03 BP 122/82 06/30/24 10:03 Pulse Ox 96 06/30/24 10:03 Oxygen Delivery Method Room Air 06/30/24 10:03 BMI result Body Mass Index 25.2 Const General: cooperative, healthy appearing, comfortable, no acute distress and alert Orientation/consciousness: patient oriented x3 Limitations: no limitations Skin General skin exam: no rashes or lesions noted, elasticity normal and turgor normal Neuro General: patient oriented x3 Extrem Other: Ankle FROM, Achiles intact. Strength 5/5. Distal neurovascular exam intact. No erythema, warmth, or edema. No areas of TTP. General: Yes normal to inspection, Yes full ROM, Yes capillary refill normal and Yes normal exam except as noted Psych Appearance: grossly normal Mental Status: mental status grossly normal Speech and movement: Normal speech and movement present Affect: normal affect Assessment & Plan Assessment & Plan (1) Right ankle pain: Code(s): M25.571 - Pain in right ankle and joints of right foot Qualifiers: Chronicity: acute Qualified Code(s): M25.571 - Pain in right ankle and joints of right foot Plan: Reassuring physical exam. Xray ordered to rule out fracture or bone spur. No obvious fracture on imaging. Given pain, advised Rest, ice, compression, elevation, and nsaids for pain. Reviewed likelihood that strain should resolve in 2-3 weeks, though less likely a strain given improvement with movement. Advi sed follow up with worsening or failure to resolve. Plan See above for full details and plan. Coding Level of Care Code Est Pt Level 4 (17186) Diagnoses Acute right ankle pain M25.571 Chronicity: acute
== END 2024-06-30 10:58 | disposition home or self-care (01) ==
PROVIDERS: PCP Internal Medicine; Visit Provider Registered Nurse
DX: M25.571 Pain in right ankle and joints of right foot (principal)
CPT/HCPCS: 99214

== ENCOUNTER 2024-06-30 10:34 | Outpatient (REF) | payer MEDICARE, OTHER, SELFPAY ==
--- NOTE | ~2024-06-30 | XR_ITS ---
EXAMINATION: XR ANKLE, RIGHT CLINICAL INFORMATION: Right ankle pain. COMPARISON: None TECHNIQUE: AP, lateral, and mortise views of the right ankle. FINDINGS: No fracture. Alignment is anatomic. Ankle mortise is symmetric. Joint spaces are maintained. No ankle joint effusion. Small enthesopathic spurs are present at the Achilles tendon insertion and plantar fascial origin on the calcaneus. Small 3 mm ossific fragments in the interval currently correspond to an old avulsion fracture at the anterior talofibular ligament. XR/XR ankle RT min 3V IMPRESSION: 1. No acute fracture or malalignment. 2. Old avulsion fracture at the anterior talofibular ligament. Electronically signed by: Rc Garcia MD 06/30/2024 02:48 PM EDT
== END 2024-06-30 10:35 | disposition home or self-care (01) ==
LOC: HO.HMGCX 10:34
PROVIDERS: PCP Internal Medicine; Visit Provider Registered Nurse
DX: M25.571 Pain in right ankle and joints of right foot (principal)
CPT/HCPCS: 73610

== ENCOUNTER 2024-07-10 10:59 | Outpatient (AMB) | payer MEDICARE, OTHER, SELFPAY ==
--- NOTE | 2024-07-10 11:00 | A.OFFVIS_ITS ---
Intake Visit Reasons: s/p Excision Skin lesion Intake Note: This patient presents for follow-up assessment status post excision skin lesion. Pt c/o; reports no complaints. 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 She tolerated procedure well. She currently denies significant complaints. [facility] Medical History Skin lesion of left arm Seasonal allergies Osteoporosis of lumbar spine Osteopenia of multiple sites COVID-19 vaccine series completed Menopause Tubular adenoma of colon Osteopenia Essential hypertension Hyperlipidemia Surgical History H/O colonoscopy History of tubal ligation Family History Father HTN (hypertension) Diabetes mellitus Bone cancer Mother Hyperlipidemia Brother No problems noted. Brother No problems noted. Brother No problems noted. Son No problems noted. Daughter No problems noted. Social History Household Members: Spouse Housing: House Patient Tobacco Use Status: Never used Tobacco e-Cigarette/Vaping Use: Never Used Current occupational status: retired Cognitive needs: No Hearing needs: No Vision needs: Yes Review of Systems Const Denies chills and Denies fever(s) Physical Exam Const General: comfortable and no acute distress Extrem Other: Left elbow excision site well healed, not infected, sutures in place Assessment & Plan Assessment & Plan (1) Skin lesion of left arm: Code(s): L98.9 - Disorder of the skin and subcutaneous tissue, unspecified Category: Medical Plan: Status post excision. Her path report shows a verruca vulgaris. I removed all her sutures. Wound edges remained well apposed. She can follow up on a p.r.n. basis. Coding Level of Care Code Global (57902) Diagnoses Skin lesion of left arm L98.9
== END 2024-07-10 11:13 | disposition home or self-care (01) ==
PROVIDERS: PCP Internal Medicine; Visit Provider Surgery
DX: L98.9 Disorder of the skin and subcutaneous tissue, unspecified (principal)
CPT/HCPCS: 99024

== ENCOUNTER → 2024-07-10 10:59 | Outpatient (BNVA) | payer MEDICARE, OTHER, SELFPAY | PROVIDERS: PCP Internal Medicine; Visit Provider Surgery | DX: Z09 Encounter for follow-up examination after completed treatment for conditions other than malignant neoplasm (principal); Z87.2 Personal history of diseases of the skin and subcutaneous tissue; Z98.890 Other specified postprocedural states | CPT/HCPCS: 99212 ==

== ENCOUNTER 2024-09-01 09:00 | Outpatient (RCR) | payer MEDICARE, OTHER, SELFPAY ==
--- NOTE | 2024-10-10 09:40 | MHC.PT.DC ---
[facility] [place] [facility] [place] [facility] [place] Office [address] Herminia George 140 [facility] [phone] F: [phone] F: [phone] F: [phone] F: [phone] Physical Therapy Discharge Report Diagnosis: RIGHT ANKLE PAIN (KP) Date of Surgery: Date of Evaluation: 08/08/24 Date of Discharge: 09/10/24 Treatments to Date: 7 Cancellations to Date: 0 No Shows to Date: 0 Discharge Status: Achieved Goals Improved Function Independent with HEP Discharge Summary: Alicia has progressed well in PT, some minimal residual symptoms remain but she feels confident in self management. Electronically signed by: Cally Garcia PT DPT Please sign and return to therapist. Thank you for your referral.
== END 2024-10-10 09:40 | disposition home or self-care (01) ==
LOC: HO.PT 09:00
PROVIDERS: PCP Internal Medicine; Visit Provider Internal Medicine
DX: M25.571 Pain in right ankle and joints of right foot (principal)
CPT/HCPCS: 97110; 97140; 97161; 97535

== ENCOUNTER 2024-09-11 07:28 | Outpatient (REF) | payer MEDICARE, OTHER, SELFPAY ==
[2024-09-11 08:42] LABS: Cholesterol 187 mg/dL (<200); HDL Cholesterol 83 mg/dL (>40); LDL Cholesterol Calculated 89 mg/dL (<100); Triglycerides 75 mg/dL (<150)
[2024-09-11 09:00] LABS: Vitamin D 25-OH Total 38.5 ng/mL (>30)
== END 2024-09-11 07:29 | disposition home or self-care (01) ==
LOC: HO.LAB 07:28
PROVIDERS: PCP Internal Medicine; Visit Provider Internal Medicine
DX: Z78.0 Asymptomatic menopausal state (principal); E78.00 Pure hypercholesterolemia, unspecified; E78.5 Hyperlipidemia, unspecified
CPT/HCPCS: 36415; 80061; 82306

== ENCOUNTER 2024-09-15 08:27 | Outpatient (AMB) | payer MEDICARE, OTHER, SELFPAY ==
--- NOTE | 2024-09-15 08:40 | A.OFFPC_ITS ---
Vital Signs 09/15/24 08:43 Height 5 ft 3 in Weight 144 lb BMI 25.5 BP 102/72 Blood Pressure Location Lt brachial Position Sitting Pulse 74 Pulse Source Pulse Oximeter Pulse Oximetry (%) 97 Oxygen Delivery Method Room Air Intake Visit Reasons: Annual PE Intake Note: Pt is here today for her PE: last mammogram 02/13/24, bone density scan 02/19/24, colonoscopy 07/12/21 Allergies No Known Allergies Allergy (Verified 09/15/24 08:56) Medication List - Last Reconciled 09/15/24 by Di Gomes MD cholecalciferol (vitamin D3) 25 mcg PO DAILY levocetirizine 5 mg PO BEDTIME metoprolol succinate ER 25 mg PO DAILY simvastatin 20 mg PO Q OTHER DAY Tobacco use date assessed: 09/15/24 Fall risk assessment: No Falls in past year Last assessed Fall Risk: 09/15/24 Dental Screening Dental Screen Date: 09/15/24 Did you have a dental visit in the last 12 months?: Yes Did you have a dental problem in the last 6 months where you did not have access to dental care?: No Was dental information given to patient?: Patient has dentist HPI Annual PE HPI Details 74 year-old lady with hypertension , hyp erlipidemia as well as allergic rhinitis, here today for her physical examination. She he is up-to-date with her mammogram and bone density scan done 02/13/24 which shows osteoporosis and has been referred to Dr. Walters for further evaluation and management.. Last colonoscopy was done 07/12/[address] Dubon, and repeat due again in 2025. Complains of pain in her right ankle, worse with weight-bearing. This has been present now for the last several months and is not getting better with conservative measures. COUNTS INCLUDE 234 BEDS AT THE [facility] Medical History (Updated 09/15/24 @ 09:23 by Di Gomes MD) Seasonal allergies Osteoporosis of lumbar spine Osteopenia of multiple sites COVID-19 vaccine series completed Menopause Tubular adenoma of colon Essential hypertension Hyperlipidemia Surgical History H/O colonoscopy History of tubal ligation Family History Father HTN (hypertension) Diabetes mellitus Bone cancer Mother Hyperlipidemia Brother No problems noted. Brother No problems noted. Brother No problems noted. Son No problems noted. Daughter No problems noted. Social History Household Members: Spouse Housing: House Patient Tobacco Use Status: Never used Tobacco e-Cigarette/Vaping Use: Never Used Current occupational status: retired Cognitive needs: No Hearing needs: No Vision needs: Yes Questionnaire PHQ-9 Over the last 2 weeks, how often have you been bothered by any of the following problems? 1. Little interest or pleasure in doing things: not at all 2. Feeling down, depressed, or hopeless: not at all 3. Trouble falling or staying asleep, or sleeping too much: not at all 4. Feeling tired or having little energy: not at all 5. Poor appetite or overeating: not at all 6. Feeling bad about yourself - or that you are a failure or have let yourself or your family down: not at all 7. Trouble concentrating on things, such as reading the newspaper or watching television: not at all 8. Moving or speaking so slowly that other people could have noticed. Or the opposite - being so fidgety or restless that you have been moving around a lot more than usual: not at all 9. Thoughts that you would be better off or of hurting yourself in some way: not at all Total score: 0 Depression Screening Interpretation: Negative Depression Screening Done: Yes 98837 - PHQ-9 Billing: Yes Source: Developed by Drs. Krish Zarate, Mariana Brower, Jarrell Shaw and colleagues, with an educational elva from [employer]. Thrive Questionnaire Date Thrive assessed: 04/01/24 I am a: Patient What is your living situation today?: I have a steady place to live Within the past 12 months, did the food you bought not last and you didn't have the money to get more?: Never true Within the past 12 months, did you worry whether your food would run out before you got money to buy more?: Never true Do you have trouble paying for medicines?: No Do you have trouble getting transportation to medical appointments?: No Do you have trouble paying your heating and electricity bill?: No Do you have trouble taking care of your child, family member or friend?: No Do you have trouble with day-to-day activities such as bathing, preparing meals, shopping, managing finances, etc.?: No Are you currently unemployed and looking for a job?: No Are you interested in more education?: No Please select the resources that you would like help with: None Currently or been in a relationship where the following occur: No concerns reported THRIVE Score: 0 AUDIT C Alcohol Use Questionnaire (AUDIT-C) 1. How often do you have a drink containing alcohol?: 4 or more times a week 2. How many drinks containing alcohol do you have on a typical day when you are drinking?: 1 or 2 3. How often do you have six or more drinks on one occasion?: Never Total Score: 4 LORI-7 AMB Questionnaire LORI-7 Date LORI - 7 assessed: 04/01/24 Feeling nervous, anxious, or on edge: 0 = Not at all Not being able to stop or control worryin = Not at all Worrying too much about different things: 0 = Not at all Trouble relaxin = Not at all Being so restless that it is hard to sit still: 0 = Not at all Becoming easily annoyed or irritable: 0 = Not at all Feeling afraid as if something awful might happen: 0 = Not at all Total LORI-7 score (0-4 normal; 5-9 mild; 10-14 moderate; 15-21 severe): 0 Source: Developed by Drs. Krish Zarate, Mariana Brower, Jarrell Shaw and colleagues, with an educational elva from [employer]. LORI-7 Assessment Billing LORI-7 Assessment Tool: LORI-7 Assessment 01548 Review of Systems Const Denies body aches, Denies difficulty sleeping, Denies fatigue, Denies fever(s) and Denies headache(s) Eyes Details: sees Dr Simons, has cataracts ENT Denies dizziness, Denies headache(s), Denies nasal congestion, Denies disequilibrium and Denies sore throat Card Denies chest pain, Denies irregular heart rhythm, Denies lightheadedness, Denies palpitations and Denies dyspnea Resp Denies cough and Denies dyspnea GI Denies abdominal pain, Denies change in bowel habits, Denies change in stool character, Denies dyspepsia, Denies heartburn and Denies nausea Denies hematuria, Denies hot flashes, Denies dysuria and Denies urinary hesitancy Musc Reports as per HPI, Denies back pain, Denies myalgias, Denies joint swelling, Denies muscle weakness and Denies stiffness Skin/Breast Denies unusual bruising Neuro Denies dizziness, Denies headache(s) and Denies disequilibrium Psych Reports no additional complaints Endo Denies fatigue and Denies palpitations Jerrod/Lymph Reports no additional complaints Aller/Immun Reports seasonal rhinorrhea Physical exam (Primary Care) Vital Signs: Last Vital Signs Pulse 74 09/15/24 08:43 BP 102/72 09/15/24 08:43 Pulse Ox 97 09/15/24 08:43 Oxygen Delivery Method Room Air 09/15/24 08:43 BMI result Body Mass Index 25.5 Tobacco/Smoking Status: Tobacco use Status Tobacco use date assessed 09/15/24 09/15/24 08:45 Patient Tobacco Use Status Never used Tobacco 09/15/24 08:45 e-Cigarette/Vaping Use Never Used 09/15/24 08:45 PHQ-9: PHQ-9 Score PHQ-9: Total score 0 09/15/24 09:24 Depression Screening Interpretation: Negative Thrive Assessment: Date of Thrive Assessment Date Thrive assessed 04/01/24 09/15/24 08:45 Currently or been in a relationship where the following occur: No concerns reported Const General: comfortable, no acute distress and alert Orientation/consciousness: patient oriented x3 HENMT Ears: external ears normal General nose exam: Normal external nose present and No nasal discharge present Mouth: Normal oral and palatal mucosa present and moist mucous membranes Eyes General: appearance normal, both eyes and all related structures Neck Neck: Yes full ROM, Yes no lymphadenopathy and Yes supple Chest Chest palpation & inspection: normal inspection of the chest Breast/axilla palpation: normal palpation of the breasts Resp Effort & Inspection: normal respiratory effort and able to speak in complete sentences Auscultation: clear to auscultation bilaterally Cardio Rate: regular rate Rhythm: regular rhythm Heart sounds: S1 normal heart sound present and S2 normal heart sound present GI Palpation (GI): Soft to palpation, nontender and no masses Auscultation: normal bowel sounds Back/Spine/Pelvis Back: No back tenderness Skin General skin exam: no rashes or lesions noted Neuro General: patient oriented x3, gait normal, tone normal, moves all extremities, Normal light touch and pain sensation and no focal motor deficits Cranial nerves: Yes CN's II-XII intact bilaterally Cognition (Neuro): normal cognition Extrem Other: Tenderness over mediolateral aspect of right ankle, no joint swelling or erythema seen. Unable to completely bear weight on right foot due to pain General: Yes full ROM, Yes no joint enlargement, Yes no clubbing, cyanosis or edema and Yes no calf tenderness Psych Appearance: grossly normal and well kempt Mental Status: mental status grossly normal Speech and movement: Normal speech and movement present Affect: normal affect Thought process: Normal thought process present Thought content: Normal thought content present Coding Level of Care Code Est Pt Prev Care >65y(47038) Diagnoses Annual visit for general adult medical examination with abnormal findings Z00.01 Chronic pain of right ankle M25.571; G89.29 Pure hypercholesterolemia E78.00 Hyperlipidemia type: pure hypercholesterolemia Essential hypertension I10 Osteoporosis of lumbar spine M81.0 Seasonal allergies J30.2 Impaired fasting glucose R73.01 Additional Codes LORI-7 Assessment Billing - LORI-7 Assessment Tool: LORI-7 Assessment 33487 ([id number]) PHQ-9 - 07334 - PHQ-9 Billing: Yes ([id number]) Assessment & Plan Assessment & Plan (1) Annual visit for general adult medical examination with abnormal findings: Code(s): Z00.01 - Encounter for general adult medical examination with abnormal findings Plan: Reviewed recent fasting lab results with patient. Continue dental visit every 6 months and followed by Dr. Simons yearly for routine eye exam. Take adequate calcium in diet and vitamin-D 3 at 2000 IU per cap once a day, in addition to weight-bearing exercises to help maintain good muscle tone and weight control. Instructed to do self-breast exam, and continue yearly mammogram, currently up-to-date. Up-to-date with all her vaccinations but has not yet had her shingles vaccine and her yearly flu shot, does not want to get a COVID booster. Up-to-date with her screening colonoscopies sees Dr. Jagdish alves again in 2 years. Up-to-date with her bone density scan, done earlier this year which showed presence of osteoporosis in lumbar spine. Patient has an appointment to see Dr. Mays in 11/2024 (2) Chronic pain of right ankle: Code(s): M25.571 - Pain in right ankle and joints of right foot; G89.29 - Other chronic pain Plan: Has had physical therapy, taking NSAIDs with no improvement. Referred to orthopedics for further evaluation and management (3) Hyperlipidemia: Code(s): E78.5 - Hyperlipidemia, unspecified Category: Medical Qualifiers: Hyperlipidemia type: pure hypercholesterolemia Qualified Code(s): E78.00 - Pure hypercholesterolemia, unspecified Plan: Reviewed recent fasting lipid profile with patient with levels within normal . Continue taking simvastatin 20 mg every other day , in addition to adherence to low-cholesterol diet and regular exercise, at least 30 minutes 3 to 4 times a week. Advised patient to make healthy food choices, eat more fruits, vegetables, whole grains, wild caught fish and low-fat dairy. Limit amount of meat and fried or fatty food products, as well as processed foods and fast foods. Follow-up scheduled with repeat fasting lipid panel in months. (4) Essential hypertension: Code(s): I10 - Essential (primary) hypertension Category: Medical Plan: Blood pressure at goal of less than 130/80. Continue metoprolol succinate ER 25 mg once a day. Reinforced importance of following a low sodium diet, getting regular exercise, and lowering stress levels. (5) Osteoporosis of lumbar spine: Code(s): M81.0 - Age-related osteoporosis without current pathological fracture Category: Medical Plan: Has an appointment already scheduled with Dr. Mays for further evaluation and management of osteoporosis, scheduled for . (6) Seasonal allergies: Code(s): J30.2 - Other seasonal allergic rhinitis Category: Medical Plan: Continue with levocetirizine 5 mg 1 tablet once a day as needed (7) Impaired fasting glucose: Code(s): R73.01 - Impaired fasting glucose Plan: Previous fasting glucose was above 100 mg/dL, which is in the prediabetic range. Impaired glucose metabolism increases the risk for developing diabetes mellitus type 2, as well as heart attack and stroke later on. Lifestyle changes that promotes weight loss, healthy eating habits, and regular exercise are important, and can prevent the progression to diabetes Orders: Orders Hemoglobin A1c 03/05/25 E78.00 - Pure hypercholesterolemia, unspecified, I10 - Essential (primary) hypertension, M81.0 - Age-related osteoporosis without current pathological fracture, R73.01 - Impaired fasting glucose, Z78.0 - Asymptomatic menopausal state Lipid Panel 03/05/25 E78.00 - Pure hypercholesterolemia, unspecified, I10 - Essential (primary) hypertension, M81.0 - Age-related osteoporosis without current pathological fracture, R73.01 - Impaired fasting glucose, Z78.0 - Asym ptomatic menopausal state Alanine Aminotransferase 03/05/25 E78.00 - Pure hypercholesterolemia, unspecified, I10 - Essential (primary) hypertension, M81.0 - Age-related oste oporosis without current pathological fracture, R73.01 - Impaired fasting glucose, Z78.0 - Asymptomatic menopausal state AMB Hemoglobin A1c 03/05/25 E78.00 - Pure hypercholesterolemia, unspecified, I10 - Essential (primary) hypertension, M81.0 - Age-related osteoporosis without current pathological fracture, R73.01 - Impaired fasting glucose, Z78.0 - Asymptomatic menopausal state Basic Metabolic Panel Fasting 03/05/25 E78.00 - Pure hypercholesterolemia, unspecified, I10 - Essential (primary) hypertension, M81.0 - Age-related osteoporosis without current pathological fracture, R73.01 - Impaired fasting glucose, Z78.0 - Asymptomatic menopausal state Vitamin D 25-OH Total 03/05/25 E78.00 - Pure hypercholesterolemia, unspecified, I10 - Essential (primary) hypertension, M81.0 - Age-related osteoporosis without current pathological fracture, R73.01 - Impaired fasting glucose, Z78.0 - Asymptomatic menopausal state Referrals Orthopedics Referral G89.29 - Other chronic pain, M25.571 - Pain in right ankle and joints of right foot
[2024-09-15 08:43] VITALS: BP 102/72; PULSE 74; O2SAT 97; BMI 25.5
== END 2024-09-15 09:21 | disposition home or self-care (01) ==
PROVIDERS: PCP Internal Medicine; Visit Provider Internal Medicine
DX: Z00.00 Encounter for general adult medical examination without abnormal findings (principal); M25.571 Pain in right ankle and joints of right foot; G89.29 Other chronic pain; E78.00 Pure hypercholesterolemia, unspecified; I10 Essential (primary) hypertension; M81.0 Age-related osteoporosis without current pathological fracture; J30.2 Other seasonal allergic rhinitis; R73.01 Impaired fasting glucose

== ENCOUNTER → 2024-09-15 08:27 | Outpatient (BNVA) | payer MEDICARE, OTHER, SELFPAY | PROVIDERS: PCP Internal Medicine; Visit Provider Internal Medicine | DX: Z00.01 Encounter for general adult medical examination with abnormal findings (principal); M25.571 Pain in right ankle and joints of right foot; G89.29 Other chronic pain; E78.00 Pure hypercholesterolemia, unspecified; I10 Essential (primary) hypertension; M81.0 Age-related osteoporosis without current pathological fracture; J30.2 Other seasonal allergic rhinitis; R73.01 Impaired fasting glucose | CPT/HCPCS: 96127; 99397 ==

== ENCOUNTER 2024-12-19 11:48 | Outpatient (AMB) | payer MEDICARE, OTHER, SELFPAY ==
[2024-12-19 11:52] VITALS: BP 110/72; PULSE 70; TEMP 36.6; O2SAT 97; BMI 26.6
--- NOTE | 2024-12-19 11:52 | MHC.OFFWIV ---
Intake Vital Signs 12/19/24 11:52 Height 5 ft 3 in Weight 150 lb BMI 26.6 BP 110/72 Blood Pressure Location Lt brachial Position Sitting Pulse 70 Pulse Source Pulse Oximeter Temp 97.9 F Temp Source Oral Pulse Oximetry (%) 97 Oxygen Delivery Method Room Air Intake Visit Reasons: EP wax build up rt ear?? Patient Tobacco Use Status: Never used Tobacco Allergies No Known Allergies Allergy (Verified 12/19/24 11:53) Medication List - Last Reconciled 12/19/24 by Daniele Nagel MD cholecalciferol (vitamin D3) 25 mcg PO DAILY levocetirizine 5 mg PO BEDTIME metoprolol succinate ER 25 mg PO DAILY simvastatin 20 mg PO Q OTHER DAY Do you need a note to return to daycare/school/sports/work: No HPI EP wax build up rt ear?? HPI Details Patient is a 74-year-old female came in today to be evaluated for blockage in right ear Patient says that she noticed that she is having difficulty hearing her voice She flew from [place] a day before it was a 4 hour flight Sensation got worse after the air travel She was having some difficulty hearing before as well but not as bad Review system reviews no ear pain no fever no sore throat no cough no nausea no vomiting On examination her right ear is filled with cerumen There is no pain with tragus pressure Ear was irrigated with good result patient tolerated procedure well [facility] Medical History Seasonal allergies Osteoporosis of lumbar spine Osteopenia of multiple sites COVID-19 vaccine series completed Menopause Tubular adenoma of colon Essential hypertension Hyperlipidemia Surgical History H/O colonoscopy History of tubal ligation Family History Father HTN (hypertension) Diabetes mellitus Bone cancer Mother Hyperlipidemia Brother No problems noted. Brother No problems noted. Brother No problems noted. Son No problems noted. Daughter No problems noted. Social History Household Members: Spouse Housing: House Patient Tobacco Use Status: Never used Tobacco e-Cigarette/Vaping Use: Never Used Current occupational status: retired Cognitive needs: No Hearing needs: No Vision needs: Yes Review of Systems Const All systems reviewed & are unremarkable except as noted in HPI and below Physical Exam Vital Signs: Last Vital Signs Temp 97.9 F 12/19/24 11:52 Pulse 70 12/19/24 11:52 BP 110/72 12/19/24 11:52 Pulse Ox 97 12/19/24 11:52 Oxygen Delivery Method Room Air 12/19/24 11:52 BMI result Body Mass Index 26.6 Const General: no acute distress Orientation/consciousness: patient oriented x3 HEENT Other: Right ear filled with cerumen no pain with tragus pressure Eyes General: appearance normal, both eyes and all related structures Resp Effort & Inspection: normal respiratory effort and able to speak in complete sentences Neuro General: patient oriented x3 Psych Mental Status: mental status grossly normal Office Procedures Cerumen Removal From which ear canal was the cerumen removed: right Removal: irrigation Notes: patient tolerated procedure well, no complications and ear canal clear [id number] Irrigation/Lavage Assessment & Plan Assessment & Plan (1) Hearing difficulty of right ear: Code(s): H91.91 - Unspecified hearing loss, right ear (2) Impacted cerumen, right ear: Code(s): H61.21 - Impacted cerumen, right ear Plan Patient is a 74-year-old female came in today to be evaluated for blockage in right ear Patient says that she noticed that she is having difficulty hearing her voice meals She flew from [place] a day before it was a 4 hour flight Sensation got worse after the air travel She was having some difficulty hearing before as well but not as bad Review system reviews no ear pain no fever no sore throat no cough no nausea no vomiting On examination her right ear is filled with cerumen There is no pain with trragus pressure Ear was irrigated with good result patient tolerated procedure well Coding Level of Care Code Est Pt Level 3 (33117) Diagnoses Hearing difficulty of right ear H91.91 Impacted cerumen, right ear H61.21 CPT Codes Office Procedure - CPT: 28936-Vkl Irrigation/Lavage ([id number])
--- OUTSIDE RECORDS SUMMARY | 2024-12-19 12:29 | XMS_ITS | Patient Health Record ---
Author Organization [facility] Address [address] [place] [address] Care Team Providers Care Concrete Pouring Supervisor Name Role Phone Mireya DANIELSON, Di Primary Care Provider Mark Veengas Jr Unavailable ALLERGIES No Known Allergies REASON FOR REFERRAL No Information MEDICATIONS Medication SIG (Take, Route, Frequency, Duration) Notes Start Date End Date Status Vitamin D Active Metoprolol Tartrate 25 MG as directed Or ally once a day Active Simvastatin 10 MG 1 tablet in the even ing Orally Once a day Active MiraLax (colon prep) 8.3 ounce ((238) grams mixed with Gatorade or Crystal Light orally begin at 5:00 p.m. the day before the procedure for 1 day 05/25/2021 Active IMMUNIZATIONS Vaccine Route Administration Date Status Comme nts Flu vaccine no Preserv 3 and > Unknown 08/19/2014 Admin istered Influenza Unknown 08/05/2020 Administered SOCIAL HISTORY Sex Assigned At : Social History Observation Description Sex Assigned At Unknown PROBLEMS Problem Type ICD Code Onset Dates Problem Status W/U Status Risk SNOMED Code Notes Problem Colon cancer screening (Z12.11) Active confirmed 369471298 PLAN OF TREATMENT Future Test Test Name Order Date COLONOSCOPY 06/16/2015 COLONOSCOPY 05/25/2021 Insurance Providers Payer Name Payer Address Payer Phone Subscriber Number Group Number Insured Name Patient Relationship to Insured Coverage Start Date Coverage End Date MEDICARE [place] [address] [place] [address] [id number] JONI VILLA Self - patient is the insured [facility] INDEMNITY [address] [place] [address] [id number] JONI VILLA Self - patient is the insured MEDICAL (GENERAL) HISTORY Medical History History ICD Code colonoscopy 04-29-2010 colon polyps elevated cholesterol high blood pressure Surgical History Surgery Date(Month/Year) tubal ligation
--- OUTSIDE RECORDS SUMMARY | 2024-12-19 12:29 | XMS_ITS ---
Author Organization [facility] Address [address] [place] [address] Care Team Providers Care Third Mate Name Role Phone Mireya DANIELSON, Di Boyd Primary Care Provider Un available Chely Simon Unavailable [phone] Allergies No Known Allergies REASON FOR VISIT foot /ankle pain Medications Medication SIG (Take, Route, Frequency, Duration) Notes Start Date End Date Status Vitamin D 25 MCG (1000 UT) 1 tablet Oral ly Once a day Active Metoprolol Succinate 25 MG 1 capsule Ora lly Once a day Active Simvastatin Active Medrol 4 MG as directed Orally d aily for 6 days 11/17/2024 Active Night Splint AFO - L1930 as directed 11/17/2024 Active Social History Tobacco Use: Social History Observation Description Date Details (start date - stop date) Never Smoker NA - NA Tobacco Control (Standard) Question Answer Notes Tobacco use: Nonsmoker Additional Findings: Tobacco non-user Current no nsmoker Problems Problem Type SNOMED Code ICD Code Onset Dates Problem Status W/U Status Risk Notes Problem Plantar fascial fibromatosis (25146603) Plantar fascial fibromatosis (M72.2) Active confirmed Problem [id number] Plantar fasciitis, right (M72.2) Active confirmed Vital Signs Height 5ft4in in 11/17/2024 Weight 145 lbs 11/17/2024 BMI 24.89 kg/m2 11/17/2024 Blood pressure systolic 110 mm Hg 11/17/19 25 Blood pressure diastolic 60 mm Hg 025 Encounters Encounter Location Date Provider Diagnosis [facility] [address] [place] [address] 11/17/2024 Chely Black Posterior tibial tendinitis of right lower extremity M76.821 ; Pain in right foot M79.671 ; 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 ; Osteoarthritis of right ankle and foot M19.071 ; Pain in right ankle and joints of right foot M25.571 and Plantar fasciitis, right M72.2 Assessments Encounter Date Diagnosis (ICD Code) Assessment Notes Treatment Notes Treatment Clinical Notes Section Notes 11/17/2024 Posterior tibial tendinitis of right lower extremity (ICD-10 - M76.821) Patient Educated with: Posteriortibialtendonitis (1).jpg (Posteriortibialtendonitis (1).jpg) l 11/17/2024 Pain in right foot (ICD-10 - M79.671) l 11/17/2024 Pronation of right foot (ICD-10 - M21.6X1) l 11/17/2024 Osteoarthritis of right ankle and foot (ICD-10 - M19.071) l 11/17/2024 Pain in right ankle and joints of right foot (ICD-10 - M25.571) l 11/17/2024 Plantar fasciitis, right (ICD-10 - M72.2) l Plan Of Treatment Medication Medication Name Sig Start Date Stop Date Notes Medrol 4 MG as directed Orally d aily for 6 days 11/17/2024 Night Splint AFO - L1930 as directed 11/17/2024 Treatment Notes Assessment Notes Posterior tibial tendinitis of right lower extremity Patient Educated with: Posteriortibialte ndonitis (1).jpg (Posteriortibialtendonitis (1).jpg) Next Appt Details Follow Up: 6 Weeks, Reason: Provider Name:Chely Simon , 01/08/2025 01:30:00 PM, [address] [place] [address], [id number], Progress Notes * Alicia DUNBAR MDOB:[birth year] (74 yo F)Acc No.[id number]:11/17/2024 Progress Notes Patient:?Alicia DUNBAR Provider:?Chely Simon DPM :1950???Age:74 Y???Sex:Female D ate:11/17/2024 Address:[address] [place] [address], [place], [id number] Pcp:Juan Chaney Subjective: * Chief Complaints: * ???Foot /ankle pain * HPI: ???Foot Pain:?Nature:?sharp, burning.?Location:?Inside, Rearfoot, RIGHT and bottom right.?Duration:?several months.?Onset:?denies trauma, sudden.?Course:?, unchanged.?Aggravated:?increased pain in am or after rest, especially toward the end of the day and going up and down stairs.?Treatments:?Physical therapy stretching, did not help, copper sleeve, ibuprofen help,meraz sneakers and pedag.?Severity/Quality:?moderate.? * ROS:?General/Constitutional:?Nausea?denies.?Vomiting?denies.?Hunger Thirst?denies.?Loss appetite?denies.?Chills?denies.?Fatigue?denies.?Fever?denies.?Night Sweats?denies.?Unexplained weight loss?denies.?Unexplained weight gain?denies.?HEENTM:?Dentures?denies.?Dizziness?denies.?Glasses/contacts?admits.?Retinopathy?de nies.?Blurred/double vision?denies.?TMJ?denies.?Discharge/drainage?denies.?Implants?denies.?Sore throat?denies.?Dental implants?denies.?Hard of hearing ?denies.?Difficulty chewing/swallowing/speaking?denies.?Nose bleeds?denies.?Sore mouth?denies.?Respiratory:?On Oxygen?denies.?Pneumonia/pleurisy?denies.?Bronchitis?denies.?Emphysema?denies.?C oughing?denies.?Cough blood?denies.?Shortness of breath?denies.?Wheezing?denies.?Cardiovascular:?Pacemaker?denies.?MVP?denies.?WPW?denies.?CHF?denies.?Heart attack?denies.?Septal defect?denies.?Rapid beat?denies.?Chest pain ?denies.?Atrial Fib.?denies.?Murmur/Palpitations?denies.?Gastrointestinal:?Hemorrhoids?denies.?Stomach/Abdominal pain?denies.?Dark blood stool?denies.?Irritable bowel ?denies.?Constipation?denies.?Diarrhea?denies.?Hematology:?Swelling?denies.?Clots?denies.?Varicose Veins?admits.?Bruising?denies.?Bleeding problem?denies.?Genitourinary:?Blood urine?denies.?Frequent/Painfu/urination/bladder control?denies.?Kidney stones?denies.?Infection (UTI)?denies.?Nephropathy?denies.?sex trans dis (STD)?denies.?Prostate?denies.?Musculoskeletal:?Hammertoes?denies.?Bunions?denies.?Back Pain?denies.?Muscle Cramps/ Resting?denies.?Muscle cramps / walking?denies.?Generalized aches and pains?denies.?Weakness?denies.?Integ.:?Parker?denies.?Scars?denies.?Corns/calluses?denies.?Ingrown nails?denies.?Painful nails?denies.?Open Sores?denies.?Rashes?denies.?Neurologic:?Difficulty sleeping?denies.?Brain disorder?denies.?Numbness?denies.?Balance trouble?denies.?Confusion?denies.?Fainting/blackouts?denies.?Tingling?denies.?Tr emors?denies.? * Medical History:? * Surgical History:?Denies Pas t Surgical History * Hospitalization/Major Diagno stic Procedure:?Denies Past Hospitalization * Family History:?Mother: patricia franco, diagnosed with Unspecified essential hypertension.?Father: , diagnosed with Other malignant neoplasm of unspecified site, Diabetic - NIDDM, Unspecified essential hypertension.? * Social History:?Tobacco Use:?Tobacco Control (Standard)?Tobacco use:?Nonsmoker ?Additional Findings: Tobacco non-user?Current nonsmoker * Medications:?TakingVitamin D 25 MCG (1000 UT) Tablet 1 tablet Orally Once a day Simvastatin Metoprolol Succinate 25 MG Capsule ER 24 Hour Sprinkle 1 capsule Orally Once a day Medication List reviewed and reconciled with the patientTaking Vitamin D 25 MCG (1000 UT) Tablet 1 tablet Orally Once a day Taking Simvastatin Taking Metoprolol Succinate 25 MG Capsule ER 24 Hour Sprinkle 1 capsule Orally Once a day Medication List reviewed and reconciled with the patient * Allergies:?N.K.D.A.yes[Aller gies Verified] Objective: * Vitals:?Ht: 5ft4in, Wt:145, BMI:24.89, Shoe size: 8, BP:110/60mm Hg, Ht-cm: 162.56 cm, Wt-k.77 kg. * Examination: ???General Examination: ?GENERAL APPEARANCE:?Reveals a pleasant, alert, well-nourished, well- developed, well hydrated individual, who demonstrates proper attention to hygiene/body habitus, and is in no acute distress, Pt serves as own?historian for office visit today.?ORIENTED:?person, place, and time.?Neurological: ?SENSORY:?Neurological exam reveals intact sensorium, pain sensation normal, vibration sensation intact, pinprick sensation is normal in the lower extremities, Pt denies, anesthesia, burning, paresthesia, tingling, B/L.?TINEL'S COMPRESSION:?Positive, Tarsal tunnel, Right.?DEEP TENDON REFLEXES:?Achilles, 2/4, B/L.?Vascular: ?DP PULSES (B):?3/4, B/L.?PT PULSES (B):?3/4, B/L.?CAPILLARY FILL TIME:?immediate, all digits, B/L.?TROPHIC CONDITION-TEXTURE/ELASTICITY/TURGOR/HAIR GROWTH (B):?normal, B/L.?TEMPERTURE GRADIENT (C):?warm to cool, proximal to distal, B/L.?PIGMENTATION:?normal, B/L.?EDEMA (C):?absent, B/L.?Dermatologic: ?SKIN FINDINGS:?Skin exam reveals normal texture, elasticity, and turgor. There are no masses. The interspaces are clear.?Orthopedic: ?MUSCLE STRENGTH:?5/5 all groups in a symmetrical fashion , B/L.?GAIT ABNORMALITY:?Pronated, abducted angle and base of gate, B/L.?FOOT MORPHOLOGY:?Pes Planus structure, Semi-flexible, B/L.?TAILOR'S BUNION:?Prominent 5th MTH/MPJ, B/L.?DIGITAL DEFORMITIES:?Digital contracture, PIPJ, 2-5 B/L, incompl-reducible with WB, or to push-up test, no over, nor underlapping.?TENDONITIS:?Pain on palpation, inflammation, and fusiform swelling to, Posterior Tibial Tendon, Pt is able to toe raise with heels inverted however painful right.?FOOTWEAR:?worn, non-supportive.?Heel Pain: ?INSPECTION REVEALS:?Pain on Palpation to Plantar Fascia med. and central bands, intrinsic musc., infra-calcaneal bursa, and med calc tubercle, RIGHT foot, No pain: posterior/superior heel, achilles bursa/tendon, sinus tarsi, peroneals, or with lateral heel compression; no limited STJ ROM, calor, or ecchymosis right.? * Physical Examination:?L1930 Nightsplint AFO:?Application of static AFO, including soft interface material, adjustable for fit/ positioning/ pressure reduction, may be used for minimal ambulation, prefabricated, including fitting and adjustment:?Medium, Right.? Assessment: * Assessment: 1.?Pain in right foot - M79. 671???2.?Posterior tibial tendinitis of right lower extremity - M76.821 (Primary)???Specify :Response to treatment - Unchanged Rx Management (4)???3.?Pronation of right foot - M21.6X1???4.?Osteoarthritis of right ankle and foot - M19.071???5.?Pain in right ankle and joints of right foot - M25.571???6.?Plantar fasciitis, right - M72.2???Specify :Acute problem, Complicated w/ Multiple Tx Options(4) Dx New problem, Prognosis Uncertain (4) Rx Management (4)??? l Plan: * Treatment: 2.?Plantar fasciitis, right? Start Night Splint AFO - L1930, as directed, Dx Plantar Fasciitis.?? * Procedure Codes:?71982 X-RAY EXAM OF RIGHT FOOT 3V, Modifiers: 26 , QRI1529 AFO PLASTIC/OTH MATERIAL PREFAB * Preventive Medicine:? ??Counseling:?Discussion:?-14: Office or other outpatient visit for the evaluation and management of an established patient, which required a medically appropriate history and/or examination and MODERATE level of DECISION MAKING for: 1 OR MORE CHRONIC PROBLEM(S) THATS WORSENING, 2 STABLE CHRONIC PROBLEMS, A NEWLY DIAGNOSED PROBLEM WITH UNCERTAIN PROGNOSIS, AN ACUTE COMPLICATED INJURY WITH MULTIPLE TREATMENT OPTIONS, OR AN ACUTE PROBLEM WITH ACCOMPANYING SYSTEMIC SYMPTOMS, THAT POSE(S) A MODERATE RISK OF MORBIDITY. THIS CONDITION MAY ALSO INCLUDE RX DRUG MANAGEMENT, OR A DECISON FOR MINOR SURGERY. The visit on the day of the encounter encompassed interpreting the data and educating the patient as to the nature of their condition, treatment options available according to their individual PMH, meds, allergies, and overall health/living conditions, as well as any potential risks or complications that may occur from a failure to adhere to, and participate in, the recommended course of therapy. The discussion included a complete verbal, and/or written explanation of the examination results, any x-rays taken, the proposed diagnosis, and outline of the treatment plan. A schedule for future care needs was also explained. The patient verbalized an understanding of the instructions at this time and agreed to be an active participant in their treatment. If the patient should think of any questions or concerns after the visit, I have encouraged the patient to call the office.?Heel pain:?FASCIITIS: I explained to the patient the possible etiologies of Plantar Fasciitis including foot type/shoegear/activity level/exercise routine and the risks/benefits of all the different treatment options for heel pain including: No treatment at all, Rest, Ice, NSAIDs(only if well tolerated after meals), New/supportive Shoegear, Strappings and Tapings, Stretching exercises, Deep Tissue Massage, Heel cups/cushions, Arch support/shoe inserts, Custom orthoses, Topical analgesics including Aspercream/Voltaren gel, Night splint AFO for am stiffness, Cortisone injection therapy, Cast boot with crutches/cane/or walker for assisted ambulation, Physical Therapy, EPAT/ESWT, Interfil injection therapy, as well as surgical [place]/Endoscopic Fasciitomy surgical procedures if needed. Recommendations were made to limit barefoot walking, eliminate wearing nonsupportive shoegear (i.e. flip-flops or sandals, or a shoe with an easily bendable, foldable, or twistable sole) and wear shoegear with a good solid sole, a supportive arch, and plenty of room for an insert/orthotic if necessary. If wearing sandals was required by the patient, we recommended orthopedic sandals such as Orthoheel or Birkenstock even while in the home. If the patient wore heels in the past, we recommended they continue, but eliminate the use of flats. The advantages and disadvantages of each option were discussed and the patients questions re: types of shoegear, custom vs prefabricated inserts, activity level, PO vs Topical medications (and their respective potential complications/drug interactions/side effects), and consistency in home treatment regimens for optimal success were answered to their satisfaction. Literature detailing plantar fasciitis and the various treatment options were dispensed and reviewed, Recommended a Night Splint to be worn daily for a minimum of 2 hours.?Myositis/Tendonitis:?Discussed other tx options for the patients condition, recomm. oral steriod to help with the inflammation and pain. Pt agrees.? ??Screening/Special Tests:?Fall Risk?Screening:?No falls in the past year ?FALLS: Screening for Future Fall Risk?Have you had any falls with injury in the past year??No * Follow Up:?6 Weeks * Images: * Sign off status: Completed true * Provider:?Chely Simon DPM Date:?2024 Generated for Guerrero guadalupe/Karlos/Andreaitting on:?12/19/2024 12:28 PM EST History and Physical Notes * HPI (History of Present Illness) Category Sub-Category Detail Notes Category Not es Foot Pain Nature: sharp, burning Location: Inside, Rearfoot, RI GHT and bottom right Duration: several months Onset: denies trauma, sudde n Course: , unchanged Aggravated: increased pain in am or after rest, especially toward the end of the day and going up and down stairs Treatments: Physical therapy str etching, did not help, copper sleeve, ibuprofen help,merazchrista allen and pedag Severity/Quality: moderate Physical Examination Category Sub-Category Detail Notes Section Note s L1930 Nightsplint AFO Application of sta tic AFO, including soft interface material, adjustable for fit/ positioning/ pressure reduction, may be used for minimal ambulation, prefabricated, including fitting and adjustment: Medium, Right Examination Category Sub-Category Detail Notes Category Not es Heel Pain INSPECTION REVEALS: Pain on Palp ation to Plantar Fascia med. and central bands, intrinsic musc., infra-calcaneal bursa, and med calc tubercle, RIGHT foot, No pain: posterior/superior heel, achilles bursa/tendon, sinus tarsi, peroneals, or with lateral heel compression; no limited STJ ROM, calor, or ecchymosis right Neurological SENSORY: Neurological exa m reveals intact sensorium, pain sensation normal, vibration sensation intact, pinprick sensation is normal in the lower extremities, Pt denies, anesthesia, burning, paresthesia, tingling, B/L TINEL'S COMPRESSION: Positive, Tarsal tu nnel, Right DEEP TENDON REFLEXES: Achilles, 2/4, B/L Dermatologic SKIN FINDINGS: Skin exam reveal s normal texture, elasticity, and turgor. There are no masses. The interspaces are clear Orthopedic GAIT ABNORMALITY: Pronated, abducted angl e and base of gate, B/L FOOT MORPHOLOGY: Pes Planus structure , Semi-flexible, B/L FOOTWEAR: worn, non-supportive DIGITAL DEFORMITIES: Digital contracture , PIPJ, 2-5 B/L, incompl-reducible with WB, or to push-up test, no over, nor underlapping TAILOR'S BUNION: Prominent 5th MTH/MP J, B/L TENDONITIS: Pain on palpation, i nflammation, and fusiform swelling to, Posterior Tibial Tendon, Pt is able to toe raise with heels inverted however painful right MUSCLE STRENGTH: 5/5 all groups in a symmetrical fashion , B/L General Examination GENERAL APPEARANCE: Reveals a pleasant, alert, well- nourished, well-developed, well hydrated individual, who demonstrates proper attention to hygiene/body habitus, and is in no acute distress, Pt serves as own historian for office visit today ORIENTED: person, place, and t breezy Vascular DP PULSES (B): 3/4, B/L PT PULSES (B): 3/4, B/L CAPILLARY FILL TIME: immediate, all digi ts, B/L TEMPERTURE GRADIENT (C): warm to cool, p roximal to distal, B/L TROPHIC CONDITION-TEXTURE/ELASTICITY/TURGOR/HAIR GROWTH (B): normal, B/L EDEMA (C): absent, B/L PIGMENTATION: normal, B/L
--- OUTSIDE RECORDS SUMMARY | 2024-12-19 12:29 | XMS_ITS ---
Author Organization [facility] Address [address] [place] [address] Care Team Providers Care Game Breeding Farm Manager Name Role Phone Mireya DANIELSON, Di Boyd Primary Care Provider Un available Chely Simon Unavailable [phone] Lucho Bee Unavailable [phone] REASON FOR VISIT seen sooner Encounters Encounter Location Date Provider Diagnosis [facility] [address] [place] [address] 10/21/2024 Lucho Bee Plan Of Treatment Next Appt Details Provider Name:Chely Simon , 01/08/2025 01:30:00 PM, [address] [place] [address], [phone], Progress Notes * Alicia DUNBAR MDOB:[birth year] (74 yo F)Acc No.[id number]:10/21/2024 Progress Notes Patient:?Alicia DUNBAR Provider:?Lucho Bee DPM :1950???Age:74 Y???Sex:Female D ate:10/21/2024 Address:[address] [place], [place] [id number] Pcp:Juan Chaney Subjective: * Chief Complaints: * ???1. Seen sooner. * Medical History:? Objective: * Vitals:? Assessment: Plan: * Treatment: * Images: * The named appointment provid er may or may not be the originator of this progress note, and it is not deemed complete until electronically signed by the appointment provider. Sign off status: Pending * Provider:?Lucho Bee DPM Date:?2023 Generated for Guerrero guadalupe/Karlos/Branden on:?12/19/2024 12:29 PM EST
--- OUTSIDE RECORDS SUMMARY | 2024-12-19 12:29 | XMS_ITS | Patient Health Record ---
Author Organization [facility] Roshan madhu MckeonStewart Address [address] [facility] [place] [address] Care Team Providers Care Airport Ramp Attendant Name Role Phone Mireya DANIELSON, Di Boyd Primary Care Provider Un available Chely Simon Unavailable [phone] Lucho Bee Unavailable [phone] Allergies No Known Allergies Results Component Value Reference Range Notes X ray : Foot, right 3V Reviewed date:10/06/2024 04:32:54 PM Interpretation:See Examination above Performing Lab: Notes/Report: See Examination above Reason For Referral No Information Medications Medication SIG (Take, Route, Frequency, Duration) [...] Additional Findings: Tobacco non-user Current no nsmoker AUDIT-C (Standard) Question Answer Notes Did you have a drink contain ing alcohol in the past year? Yes How often did you have six o r more drinks on one occasion in the past year? Declined to specify (0 point) How many drinks did you have on a typical day when you were drinking in the past year? Declined to specify (0 point) How often did you have a dri nk containing alcohol in the past year? 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 Problem [id number] Plantar fasciitis, right (M72.2) Active confirmed Vital Signs Blood pressure diastolic 60 mm Hg 11/17/2024 Height 5ft4in in 11/17/2024 Blood pressure systolic 110 mm Hg 11/17/2024 Weight 145 lbs 11/17/2024 BMI 24.89 kg/m2 11/17/2024 Encounters Encounter Location Date Provider Diagnosis [address] [address] 10/06/2024 Chely Black Posterior tibial tendinitis of right lower extremity M76.821 ; Pain in right foot M79.671 ; 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 ; Osteoarthritis of right ankle and foot M19.071 and Pain in right ankle and joints of right foot M25.[address] [address] 11/17/2024 Chely Black Posterior tibial tendinitis of right lower extremity M76.821 ; Pain in right foot M79.671 ; 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 ; Osteoarthritis of right ankle and foot M19.071 ; Pain in right ankle and joints of right foot M25.571 and Plantar fasciitis, right M72.[address] [address] 10/06/2024 Chely Black Assessments Encounter Date Diagnosis (ICD Code) Assessment Notes Treatment Notes Treatment Clinical Notes Section Notes 10/06/2024 Pain in right foot (ICD-10 - M79.671) 10/06/2024 Posterior tibial tendinitis of right lower extremity (ICD-10 - M76.821) Patient Educated with: Posteriortibialtendonitis (1).jpg (Posteriortibialtendonitis (1).jpg) 11/17/2024 Pain in right foot (ICD-10 - M79.671) l 11/17/2024 Posterior tibial tendinitis of right lower extremity (ICD-10 - M76.821) Patient Educated with: Posteriortibialtendonitis (1).jpg (Posteriortibialtendonitis (1).jpg) l 11/17/2024 Pronation of right foot (ICD-10 - M21.6X1) l 10/06/2024 Pronation of right foot (ICD-10 - M21.6X1) 10/06/2024 Osteoarthritis of right ankle and foot (ICD-10 - M19.071) 11/17/2024 Osteoarthritis of right ankle and foot (ICD-10 - M19.071) l 11/17/2024 Pain in right ankle and joints of right foot (ICD-10 - M25.571) l 10/06/2024 Pain in right ankle and joints of right foot (ICD-10 - M25.571) 11/17/2024 Plantar fasciitis, right (ICD-10 - M72.2) l Plan Of Treatment Next Appt Details Provider Name:Chely Simon , 01/08/2025 01:30:00 PM, [address] [facility], [place], [address], Insurance Providers Payer Name Payer Address Payer Phone Subscriber Number Group Number Insured Name Patient Relationship to Insured Coverage Start Date Coverage End Date Medicare National Govt Svcs Inc [address] [place] [phone] [id number] Alicia Dunbar Self - patient is the insured 4 [employer] [address] [place] [address] [id number] Alicia Dunbar Self - patient is the insured Medical (General) History Medical History History ICD Code CAD (Cholesterol) Chicken pox Measles Mumps High Blood Pressure
--- OUTSIDE RECORDS SUMMARY | 2024-12-19 12:29 | XMS_ITS ---
Author Organization [facility] Address [address] [place] [address] Care Team Providers Care Strap Stitcher Name Role Phone Mireya DANIELSON, Di Boyd Primary Care Provider Un available AlfredChely Unavailable [phone] REASON FOR VISIT BUY Pedluz Gaffney mini (hester) #38/ L 8 Encounters Encounter Location Date Provider Diagnosis [address] [address] 10/06/2024 Chely Simon Plan Of Treatment Next Appt Details Provider Name:Chely Syed Alfred , 01/08/2025 01:30:00 PM, [address] [place] [address], [phone], Progress Notes * Alicia VILLA MDOB:[birth year] (74 yo F)Acc No.[id number]:10/06/2024 Patient:?Alicia VILLA :1950???Age:74 Y???Sex:Female Address:[address] [place], [place] [address], [address] * true * Date:? Generated for Printi collins/Karlos/eTransmitting on:?12/19/2024 12:28 PM EST
== END 2024-12-19 12:15 | disposition home or self-care (01) ==
PROVIDERS: PCP Internal Medicine; Visit Provider Internal Medicine
DX: H61.21 Impacted cerumen, right ear (principal)

== ENCOUNTER → 2024-12-19 11:48 | Outpatient (BNVA) | payer MEDICARE, OTHER, SELFPAY | PROVIDERS: PCP Internal Medicine | DX: H61.21 Impacted cerumen, right ear (principal) | CPT/HCPCS: 69209; 99212 ==

== ENCOUNTER 2025-02-24 08:17 | Outpatient (REF) | payer MEDICARE, OTHER, SELFPAY ==
--- OUTSIDE RECORDS SUMMARY | 2025-02-24 08:35 | XMS_ITS | Patient Health Record ---
Author Organization [facility] Roshan madhu [place] Address [address] [facility] [place] [address] Care Team Providers Care Patrol Agent Name Role Phone Mireya DANIELSON, Di Boyd Primary Care Provider Un available BlackChely Unavailable [phone] Lucho Bee Unavailable [phone] Allergies No Known Allergies Results Component Value Reference Range Notes X ray : Foot, right 3V Reviewed date:10/06/2024 04:32:54 PM Interpretation:See Examination above Performing Lab: Notes/Report: See Examination above Reason For Referral No Information Medications Medication SIG (Take, Route, Frequency, Duration) Notes Start Date End Date Status Fosamax 70 MG once a month Orally once a month Active Simvastatin Active Vitamin D 25 MCG (1000 UT) 1 tablet Oral ly Once a day Active Night Splint AFO - L1930 as directed 11/17/2024 Active Metoprolol Succinate 25 MG 1 capsule Ora lly Once a day Active Medrol 4 MG as directed Orally d aily for 6 days 11/17/2024 Active Social History Tobacco Use: Social History Observation Description Date Details (start date - stop date) Never Smoker NA - NA Tobacco use other than smoking: Question Answer Notes Are you an other tobacco user? No Tobacco Control (Standard) Question Answer Notes Tobacco use: Nonsmoker Additional Findings: Tobacco non-user Current no nsmoker AUDIT-C (Standard) Question Answer Notes Did you have a drink contain ing alcohol in the past year? Yes How often did you have a dri nk containing alcohol in the past year? Monthly or less (1 point) How many drinks did you have on a typical day when you were drinking in the past year? 1 or 2 drinks (0 point) How often did you have six o r more drinks on one occasion in the past year? 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 Problem 58988711969740790 Plantar fasciitis, right (M72.2) Active confirmed Vital Signs Heart Rate 69 /min 01/08/2025 Blood pressure diastolic 84 mm Hg 01/08/2025 Height 5ft 4 in in 01/08/2025 Blood pressure systolic 126 mm Hg 01/08/2025 Weight 140 lbs 01/08/2025 BMI 24.03 kg/m2 01/08/2025 Encounters Encounter Location Date Provider Diagnosis [address] [address] 10/06/2024 Chely Black Posterior tibial tendinitis of right lower extremity M76.821 ; Pain in right foot M79.671 ; 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 ; Osteoarthritis of right ankle and foot M19.071 and Pain in right ankle and joints of right foot M25.[address] [address] 11/17/2024 Chely Black Posterior tibial tendinitis of right lower extremity M76.821 ; Pain in right foot M79.671 ; 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 ; Osteoarthritis of right ankle and foot M19.071 ; Pain in right ankle and joints of right foot M25.571 and Plantar fasciitis, right M72.[address] [address] 01/08/2025 Chely Black Posterior tibial tendinitis of right lower extremity M76.821 ; Osteoarthritis of right ankle and foot M19.071 and Plantar fasciitis, right M72.[address] [address] 10/06/2024 Chely Simon Assessments Encounter Date Diagnosis (ICD Code) Assessment [...] Educated with: Posteriortibialtendonitis (1).jpg (Posteriortibialtendonitis (1).jpg) l 01/08/2025 Posterior tibial tendinitis of right lower extremity (ICD-10 - M76.821) l 01/08/2025 Osteoarthritis of right ankle and foot (ICD-10 - M19.071) l 01/08/2025 Plantar fasciitis, right (ICD-10 - M72.2) l 11/17/2024 Pronation of right foot (ICD-10 [...] (ICD-10 - M72.2) l Plan Of Treatment No Information Insurance Providers Payer Name Payer Address Payer Phone Subscriber Number Group Number Insured Name Patient Relationship to Insured Coverage Start Date Coverage End Date Medicare National Govt Svcs Inc [address] [place] [phone] [id number] Alicia Dunbar Self - patient is the insured 4 [employer] [facility] [address] [place] [address] [id number] Alicia Dunbar Self - patient is the insured Medical (General) History Medical History History ICD Code CAD (Cholesterol) Chicken pox Measles Mumps High Blood Pressure
--- OUTSIDE RECORDS SUMMARY | 2025-02-24 08:35 | XMS_ITS ---
Author Organization [facility] Address [address] [place] [address] Care Team Providers Care Immigration Judge Name Role Phone Mireya DANIELSON, Di Boyd Primary Care Provider Un available Chely Simon Unavailable [phone] Allergies No Known Allergies REASON FOR VISIT [...] Status Risk Notes Problem Plantar fascial fibromatosis (04201322) Plantar fascial fibromatosis (M72.2) Active confirmed Problem 35203793895032515 Plantar fasciitis, right (M72.2) Active confirmed Vital Signs Height 5ft4in in 11/17/2024 Weight 145 lbs 11/17/2024 BMI 24.89 kg/m2 11/17/2024 Blood pressure systolic 110 mm Hg 11/17/19 25 Blood pressure diastolic 60 mm Hg 025 Encounters Encounter Location Date Provider Diagnosis [facility] [address] [place] [address] 11/17/2024 Chely Black Posterior tibial tendinitis of [...] Appt Details Follow Up: 6 Weeks, Reason: Progress Notes * Alicia DUNBAR MDOB:[birth year] (74 yo F)Acc No.[id number]:11/17/2024 Progress Notes Patient:?Alicia DUNBAR Provider:?Chely Simon DPM :1950???Age:74 Y???Sex:Female D ate:11/17/2024 Address:[address] [place] [address], [place] [facility] Pcp:Juan Chaney Subjective: * Chief Complaints: * [...] as directed, Dx Plantar Fasciitis.?? * Procedure Codes:?63740 X-RAY EXAM OF RIGHT FOOT 3V, Modifiers: 26 , [id number] AFO PLASTIC/OTH MATERIAL PREFAB * Preventive Medicine:? [...] Interfil injection therapy, as well as surgical [place]/Endoscopic Fasciitomy surgical procedures if needed. Recommendations were [...] Provider:?Chely Simon DPM Date:?2024 Generated for Guerrero guadalupe/Karlos/Branden on:?02/24/2025 08:34 AM EDT History and Physical Notes * HPI (History [...] etching, did not help, copper sleeve, ibuprofen help,meraz sneakers and pedag Severity/Quality: moderate Physical Examination Category [...] MORPHOLOGY: Pes Planus structure , Semi-flexible, B/L FOOTWEAR EVALUATION: worn, non-supportiv e DIGITAL DEFORMITIES: Digital contracture , PIPJ, 2-5 [...]
--- OUTSIDE RECORDS SUMMARY | 2025-02-24 08:35 | XMS_ITS ---
Author Organization [facility] Roshan madhu [place]keon[place] Address [address] [facility] [place] [address] Care Team Providers Care Bilingual Sales Assistant Name Role Phone Mireya DANIELSON, Di Boyd Primary Care Provider Un available Chely Simon Unavailable [phone] Allergies No Known Allergies REASON FOR VISIT Pcp-09/28, foot /ankle pain Medications Medication SIG (Take, Route, Frequency, Duration) Notes Start Date End Date Status Simvastatin Active Vitamin D 25 MCG (1000 UT) 1 tablet Oral ly Once a day Active Night Splint AFO - L1930 as directed 11/17/2024 Active Metoprolol Succinate 25 MG 1 capsule Ora lly Once a day Active Medrol 4 MG as directed Orally d aily for 6 days 11/17/2024 Active Fosamax 70 MG once a month Orally once a month Active Social History Tobacco Use: Social History [...] Never (0 point) Points 1 Interpretation Negative Vital Signs Height 5ft 4 in in 01/08/2025 Weight 140 lbs 01/08/2025 BMI 24.03 kg/m2 01/08/2025 Blood pressure systolic 126 mm Hg 01/09/20 25 Blood pressure diastolic 84 mm Hg 025 Heart Rate 69 /min 01/08/2025 Encounters Encounter Location Date Provider Diagnosis [facility] [address] [place] [address] 01/08/2025 Chely Simon Posterior tibial tendinitis of right lower extremity M76.821 ; Osteoarthritis of right ankle and foot M19.071 and Plantar fasciitis, right M72.2 Assessments Encounter Date Diagnosis (ICD Code) Assessment Notes Treatment Notes Treatment Clinical Notes Section Notes 01/08/2025 Posterior tibial tendinitis of right lower extremity (ICD-10 - M76.821) l 01/08/2025 Osteoarthritis of right ankle and foot (ICD-10 - M19.071) l 01/08/2025 Plantar fasciitis, right (ICD-10 - M72.2) l Plan Of Treatment Next Appt Details Follow Up: prn, Reason: Progress Notes * Alicia DUNBAR MDOB:[birth year] (74 yo F)Acc No.[id number]:01/08/2025 Progress Notes Patient:?Alicia DUNBAR Provider:?Chely Simon DPM :1950???Age:74 Y???Sex:Female D ate:01/08/2025 Address:[address] [place], [place] [id number] Pcp:Juan Chaney Subjective: * Chief Complaints: * ???Pcp-09/28Foot /ankle pain * HPI: ???Foot Pain:?Nature:?sharp, burning.?Location:?Inside, Rearfoot, RIGHT and bottom right.?Duration:?several months.?Onset:?denies trauma, sudden.?Course:?, improved, at 80-90%.?Aggravated:?increased pain in am or after rest, especially toward the end of the day and going up and down stairs.?Treatments:?Physical therapy stretching, did not help, copper sleeve, ibuprofen help,meraz sneakers and pedag, medrol nicolas,night splint.? * ROS:?General/Constitutional:?Nausea?denies.?Vomiting?denies.?Hunger Thirst?denies.?Loss appetite?denies.?Chills?denies.?Fatigue?denies.?Fever?denies.?Night Sweats?denies.?Unexplained weight loss?denies.?Unexplained [...] Unspecified essential hypertension.? * Social History:?Tobacco Use:?Tobacco use other than smoking?Are you an other tobacco user??No ?Tobacco Control (Standard)?Tobacco use:?Nonsmoker ?Additional Findings: Tobacco non-user?Current nonsmoker ???Drugs/Alcohol:?Drugs?Have you used drugs other than those for medical reasons in the past 12 months??No ???Miscellaneous:?Caffeine: yes, frequency:, 1-2 cups per day. ?Children: yes, 2. ?Exercise: yes, walking. ?Marital status: . ?Occupation: Retired- [employer]. ???Drug/Alcohol:?AUDIT-C (Standard)?Did you have a drink containing alcohol in the past year??Yes ?How often did you have a drink containing alcohol in the past year??Monthly or less (1 point) ?How many drinks did you have on a typical day when you were drinking in the past year??1 or 2 drinks (0 point) ?How often did you have six or more drinks on one occasion in the past year??Never (0 point) ?Points?1 ?Interpretation?Negative * Medications:?TakingFosamax 7 0 MG Tablet once a month Orally once a month Vitamin D 25 MCG (1000 UT) Tablet 1 tablet Orally Once a day Simvastatin Metoprolol Succinate 25 MG Capsule ER 24 Hour Sprinkle 1 capsule Orally Once a day Night Splint AFO - L1930 as directed Medrol 4 MG Tablet Therapy Pack as directed Orally daily Medication List reviewed and reconciled with the patientTaking Fosamax 70 MG Tablet once a month Orally once a month Taking Vitamin D 25 MCG (1000 UT) Tablet 1 tablet Orally Once a day Taking Simvastatin Taking Metoprolol Succinate 25 MG Capsule ER 24 Hour Sprinkle 1 capsule Orally Once a day Taking Night Splint AFO - L1930 as directed Taking Medrol 4 MG Tablet Therapy Pack as directed Orally daily Medication List reviewed and reconciled with the patient * Allergies:?N.K.D.A.yes[Aller gies Verified] Objective: * Vitals:?Ht: 5ft 4 in, Wt:140 , BMI:24.03, Shoe size: 8.5, BP:126/84mm Hg, HR:69/min, Ht-cm: 162.56 cm, Wt-k.5 kg. * Examination: ???General Examination: ?GENERAL APPEARANCE:?Reveals [...] or to push-up test, no over, nor underlapping.?TENDONITIS:?NO Pain on palpation, inflammation, and fusiform swelling to, Posterior Tibial Tendon, Pt is able to toe raise with heels inverted however painful right, Approximately 100 percent LESS.?FOOTWEAR:?worn, non-supportive.?Heel Pain: ?INSPECTION REVEALS:?Pain on Palpation to Plantar Fascia med. and central bands, intrinsic musc., infra-calcaneal bursa, and med calc tubercle, RIGHT foot, No pain: posterior/superior heel, achilles bursa/tendon, sinus tarsi, peroneals, or with lateral heel compression; no limited STJ ROM, calor, or ecchymosis right, Approximately 100 percent LESS.? Assessment: * Assessment: 1.?Posterior tibial tendinit is of right lower extremity - M76.821 (Primary)???Specify :Resolved???2.?Osteoarthritis of right ankle and foot - M19.071???3.?Plantar fasciitis, right - M72.2???Specify :Resolved??? l Plan: * Treatment: * Procedure Codes:? * Preventive Medicine:? ??Counseling:?Discussion:?-12: Office or other outpatient visit for the evaluation and management of an established patient, which required a medically appropriate history and/or examination and STRAIGHTFORWARD level of MEDICAL DECISION MAKING, 1 SELF-LIMITED OR MINOR PROBLEM, MINIMAL- NO AMOUNT/COMPLEXITY OF DATA TO BE REVIEWED/ANALYZED, AND MINIMAL RISK OF COMPLICATION/MORBIDITY. The visit on the day of the [...] have encouraged the patient to call the office, Given recent successful results to treatment, The patient wishes to continue with the present treatment plan for their condition, Patients podiatric issue has improved, they should call the office with any future issues or concerns.? * Follow Up:?prn * Images: * Sign off status: Completed true * Provider:Sonia Simon DPM Date:?2024 Generated for Guerrero guadalupe/Karlos/Branden on:?02/24/2025 08:35 AM EDT History and Physical Notes * HPI (History of Present Illness) Category Sub-Category Detail Notes Category Not es Foot Pain Nature: sharp, burning Location: Inside, Rearfoot, RI GHT and bottom right Duration: several months Onset: denies trauma, sudde n Course: , improved, at 80-90 % Aggravated: increased pain in am or after rest, especially toward the end of the day and going up and down stairs Treatments: Physical therapy str etching, did not help, copper sleeve, ibuprofen help,meraz sneakers and pedag, medrol nicolas,night splint Examination Category Sub-Category Detail Notes Category Not es Heel Pain INSPECTION REVEALS: Pain on Palp ation to Plantar Fascia med. and central bands, intrinsic musc., infra-calcaneal bursa, and med calc tubercle, RIGHT foot, No pain: posterior/superior heel, achilles bursa/tendon, sinus tarsi, peroneals, or with lateral heel compression; no limited STJ ROM, calor, or ecchymosis right, Approximately 100 percent LESS Neurological SENSORY: Neurological exa m reveals intact [...] BUNION: Prominent 5th MTH/MP J, B/L TENDONITIS: NO Pain on palpation , inflammation, and fusiform swelling to, Posterior Tibial Tendon, Pt is able to toe raise with heels inverted however painful right, Approximately 100 percent LESS MUSCLE STRENGTH: 5/5 all groups in a [...]
--- OUTSIDE RECORDS SUMMARY | 2025-02-24 08:35 | XMS_ITS | Patient Health Record ---
Author Organization [facility] Address [address] [place] [address] Care Team Providers Care Social Scientist Name Role Phone Mireya DANIELSON, Di Primary Care Provider Mark Venegas Jr Unavailable Allergies No Known Allergies Reason For Referral No Information Medications Medication [...] the procedure for 1 day 05/25/2021 Active Immunizations Vaccine Route Administration Date Status Comme nts Flu vaccine no Preserv 3 and > Unknown 08/19/2014 Admin istered Influenza Unknown 08/05/2020 Administered Problems Problem Type SNOMED Code ICD Code Onset Dates Problem Status W/U Status Risk Notes Problem 977519008 Colon cancer screening (Z12.11) Active confirmed Plan Of Treatment Future Test Test Name Order Date COLONOSCOPY 06/16/2015 COLONOSCOPY 05/25/2021 Insurance Providers Payer Name Payer Address Payer Phone Subscriber Number Group Number Insured Name Patient Relationship to Insured Coverage Start Date Coverage End Date MEDICARE OF [place] [address] [place] [address] [id number] JONI VILLA Self - patient is the insured [facility] [address] [place] [address] [id number] JONI VILLA Self - patient is the insured Medical (General) History Medical History History ICD Code colonoscopy 04-29-2010 colon polyps elevated cholesterol high blood pressure Surgical History Surgery Date(Month/Year) tubal ligation
--- OUTSIDE RECORDS SUMMARY | 2025-02-24 08:36 | XMS_ITS ---
Author Organization [facility] Address [address] [place] [address] Care Team Providers Care Railroad Switchman Name Role Phone Mireya DANIELSON, Di Boyd Primary Care Provider Un available Chely Simon Unavailable [phone] Lucho Bee Unavailable [phone] REASON FOR VISIT seen sooner Encounters Encounter Location Date Provider Diagnosis [facility] [address] [place] [address] 10/21/2024 Lucho Bee Plan Of Treatment No Information Progress Notes * Alicia DUNBAR MDOB:[birth year] (74 yo F)Acc No.[id number]:10/21/2024 Progress Notes Patient:?Alicia DUNBAR Provider:?Lucho Bee DPM :1950???Age:74 Y???Sex:Female D ate:10/21/2024 Address:[address] [place], [place] [id number] Pcp:Juan Chanye Subjective: * Chief Complaints: * ???1. Seen sooner. * Medical History:? Objective: * Vitals:? Assessment: Plan: * Treatment: * Images: * The named appointment provid er may or may not be the originator of this progress note, and it is not deemed complete until electronically signed by the appointment provider. Sign off status: Pending * Provider:?Lucho Bee DPM Date:?2023 Generated for Jorgei collins/Karlos/eTransmitting on:?02/24/2025 08:35 AM EDT
== END 2025-02-24 08:18 | disposition home or self-care (01) ==
LOC: HO.MAMMO 08:17
PROVIDERS: PCP Internal Medicine; Visit Provider Internal Medicine
DX: Z12.31 Encounter for screening mammogram for malignant neoplasm of breast (principal)
CPT/HCPCS: 77063; 77067

== ENCOUNTER → 2025-02-24 08:30 | Outpatient (BNV) | payer MEDICARE, OTHER, SELFPAY | PROVIDERS: PCP Internal Medicine; Visit Provider Internal Medicine | DX: Z12.31 Encounter for screening mammogram for malignant neoplasm of breast (principal) | CPT/HCPCS: 77063; 77067 ==

== ENCOUNTER 2025-03-10 07:11 | Outpatient (REF) | payer MEDICARE, OTHER, SELFPAY ==
--- OUTSIDE RECORDS SUMMARY | 2025-03-10 07:13 | XMS_ITS | Patient Health Record ---
Author Organization [facility] Roshan madhu [place] Address [address] [facility] [place] [address] Care Team Providers Care Personnel Coordinator Name Role Phone Mireya DANIELSON, Di Boyd Primary Care Provider Un available BlackKyleighe Unavailable [phone] Lucho Bee Unavailable [phone] Allergies No Known Allergies Results Component Value [...] Status Risk Notes Problem Plantar fascial fibromatosis (53907564) Plantar fascial fibromatosis (M72.2) Active confirmed Problem Localized, primary osteoarthritis of the ankle and/or foot (684527801) Osteoarthritis of right ankle and foot (M19.071) Active confirmed Problem 00383281 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 Problem [id number] Plantar fasciitis, right (M72.2) Active confirmed Vital Signs Heart Rate 69 /min 01/08/2025 Blood pressure diastolic 84 mm Hg 01/08/2025 Height 5ft 4 in in 01/08/2025 Blood pressure systolic 126 mm Hg 01/08/2025 Weight 140 lbs 01/08/2025 BMI 24.03 kg/m2 01/08/2025 Encounters Encounter Location Date Provider Diagnosis [address] [address] 10/06/2024 Chely Black Posterior tibial tendinitis of right lower extremity M76.821 ; Pain in right foot M79.671 ; 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 ; Osteoarthritis of right ankle and foot M19.071 and Pain in right ankle and joints of right foot M25.[address] [address] 11/17/2024 Chely Black Posterior tibial tendinitis of right lower extremity M76.821 ; Pain in right foot M79.671 ; 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 ; Osteoarthritis of right ankle and foot M19.071 ; Pain in right ankle and joints of right foot M25.571 and Plantar fasciitis, right M72.[address] [address] 01/08/2025 Chely Black Posterior tibial tendinitis of right lower extremity M76.821 ; Osteoarthritis of right ankle and foot M19.071 and Plantar fasciitis, right M72.[address] [address] 10/06/2024 Chely Simon Assessments Encounter Date Diagnosis (ICD Code) Assessment Notes Treatment Notes Treatment Clinical Notes Section Notes 10/06/2024 Pain in right foot (ICD-10 - M79.671) 10/06/2024 Posterior tibial tendinitis of right lower extremity (ICD-10 - M76.821) Patient Educated with: Posteriortibialtendonitis (1).jpg (Posteriortibialtendonitis (1).jpg) 01/08/2025 Posterior tibial tendinitis of right lower extremity (ICD-10 - M76.821) l 01/08/2025 Osteoarthritis of right ankle and foot (ICD-10 - M19.071) l 11/17/2024 Pain in right foot (ICD-10 - M79.671) l 11/17/2024 Posterior tibial tendinitis of right lower extremity (ICD-10 - M76.821) Patient Educated with: Posteriortibialtendonitis (1).jpg (Posteriortibialtendonitis (1).jpg) l 11/17/2024 Pronation of right foot (ICD-10 - M21.6X1) l 01/08/2025 Plantar fasciitis, right (ICD-10 - M72.2) l 10/06/2024 Pronation of right foot (ICD-10 - M21.6X1) 10/06/2024 Osteoarthritis of right ankle and foot (ICD-10 - M19.071) 11/17/2024 Osteoarthritis of right ankle and foot (ICD-10 - M19.071) l 10/06/2024 Pain in right ankle and joints of right foot (ICD-10 - M25.571) 11/17/2024 Pain in right ankle and joints of right foot (ICD-10 - M25.571) l 11/17/2024 Plantar fasciitis, right (ICD-10 - M72.2) l Plan Of Treatment No Information Insurance Providers Payer Name Payer Address Payer Phone Subscriber Number Group Number Insured Name Patient Relationship to Insured Coverage Start Date Coverage End Date Medicare National Govt Sv[employer] [address] [place] [phone] [id number] Alicia Dunbar Self - patient is the insured 4 [employer]) [address] [place] [address] [id number] Alicia Dunbar Self - patient is the insured Medical (General) History Medical History History ICD Code CAD (Cholesterol) Chicken pox Measles Mumps High Blood Pressure
--- OUTSIDE RECORDS SUMMARY | 2025-03-10 07:13 | XMS_ITS | Patient Health Record ---
Author Organization [facility] Address [address] [place] [address] Care Team Providers Care Commercial Collections Driver Name Role Phone Mireya DANIELSON, Di Primary [...] Problem Status W/U Status Risk Notes Problem [id number] Colon cancer screening (Z12.11) Active confirmed Plan Of Treatment Future Test Test Name Order Date COLONOSCOPY 06/16/2015 COLONOSCOPY 05/25/2021 Insurance Providers Payer Name Payer Address Payer Phone Subscriber Number Group Number Insured Name Patient Relationship to Insured Coverage Start Date Coverage End Date MEDICARE OF [place] [address] [place] [address] [id number] JONI VILLA Self - patient is the insured [facility] [employer] [address] [place] [address] [id number] JONI VILLA Self - patient is the insured Medical (General) History Medical History History ICD Code colonoscopy 04-29-2010 colon polyps elevated cholesterol high blood pressure Surgical History Surgery Date(Month/Year) tubal ligation
--- OUTSIDE RECORDS SUMMARY | 2025-03-10 07:14 | XMS_ITS ---
Author Organization [facility] Address [address] [place] [address] Care Team Providers Care Trim Master Operator Name Role Phone Mireya DANIELSON, Di Boyd Primary Care Provider Un available Chely Simon Unavailable [phone] Lucho Bee Unavailable [phone] REASON FOR VISIT seen sooner Encounters Encounter Location Date Provider Diagnosis [facility] [address] [place] [address] 10/21/2024 Lucho Bee Plan Of Treatment No Information Progress Notes * Alicia DUNBAR MDOB:[birth year] (74 yo F)Acc No.[id number]:10/21/2024 Progress Notes Patient:?Alicia DUNBAR Provider:?Lucho Bee DPM :1950???Age:74 Y???Sex:Female D ate:10/21/2024 Address:[address] [place], [place] [id number] Pcp:Juan Chaney Subjective: * Chief Complaints: * [...] Bee DPM Date:?2023 Generated for Jorgei collins/Karlos/eTransmitting on:?03/10/2025 07:14 AM EDT
--- OUTSIDE RECORDS SUMMARY | 2025-03-10 07:14 | XMS_ITS ---
Author Organization [facility] Roshan madhu [place] Address [address] [facility] [place] [address] Care Team Providers Care Temperature Logging Operator Name Role Phone Mireya DANIELSON, Di Boyd Primary Care Provider Un available Chely Simon Unavailable [phone] Allergies No Known Allergies REASON FOR VISIT [...] 01/08/2025 Encounters Encounter Location Date Provider Diagnosis [facility] [address] [place] [address] 01/08/2025 Chely Simon Posterior tibial tendinitis of [...] * Alicia DUNBAR MDOB:[birth year] (74 yo F)Acc No.[id number]:01/08/2025 Progress Notes Patient:?Alicia DUNBAR Provider:?Chely Simon DPM :1950???Age:74 Y???Sex:Female D ate:01/08/2025 Address:[address] [place], [place] [id number] Pcp:Juan Chaney Subjective: * Chief Complaints: * [...] yes, walking. ?Marital status: . ?Occupation: Retired- [employer] service. ???Drug/Alcohol:?AUDIT-C (Standard)?Did you have a drink [...] Simon DPM Date:?2024 Generated for Guerrero guadalupe/Karlos/Branden on:?03/10/2025 07:13 AM EDT History and Physical Notes * [...]
[2025-03-10 08:52] LABS: Estimated Average Glucose 105 mg/dL; Hemoglobin A1C 121.6643 umol/L; Hemoglobin A1c % 5.3 % (<6.0); Total Hemoglobin (HGBA1C) 3483.4978 umol/L
[2025-03-10 09:15] LABS: Alanine Aminotransferase 19 U/L (0-31); Anion Gap 9 (12-20); Blood Urea Nitrogen 17 mg/dL (9-16); Carbon Dioxide 28 mmol/L (22-29); Chloride 108 mmol/L (96-108); Estimated Glomerular Filt Rate > 60; Glucose Fasting 94 mg/dL (60-99); Potassium 4.4 mmol/L (3.3-5.1); Sodium 141 mmol/L (135-145); Triglycerides 83 mg/dL (<150)
[2025-03-10 09:16] LABS: Cholesterol 193 mg/dL (<200)
[2025-03-10 09:38] LABS: Vitamin D 25-OH Total 46.5 ng/mL (>30)
[2025-03-10 10:01] LABS: HDL Cholesterol 78 mg/dL (>40); LDL Cholesterol Calculated 99 mg/dL (<100)
== END 2025-03-10 07:12 | disposition home or self-care (01) ==
LOC: HO.LAB 07:11
PROVIDERS: PCP Internal Medicine; Visit Provider Internal Medicine
DX: M81.0 Age-related osteoporosis without current pathological fracture (principal); Z78.0 Asymptomatic menopausal state; I10 Essential (primary) hypertension; E78.00 Pure hypercholesterolemia, unspecified; R73.01 Impaired fasting glucose
CPT/HCPCS: 36415; 80048; 80061; 82306; 83036; 84460

== ENCOUNTER 2025-03-16 08:00 | Outpatient (AMB) | payer MEDICARE, OTHER, SELFPAY ==
--- NOTE | 2025-03-16 08:05 | MHC.PC.OV ---
Vital Signs 03/16/25 08:09 Height 5 ft 3 in Weight 145 lb BMI 25.7 BP 112/70 Blood Pressure Location Rt brachial Position Sitting Respiration 16 Pulse 71 Pulse Source Pulse Oximeter Pulse Oximetry (%) 97 Oxygen Delivery Method Room Air Intake Visit Reasons: 6m follow up Intake Note: Pt is here today for her 6mo. f/u Allergies No Known Allergies Allergy (Verified 03/16/25 08:21) Medication List - Last Reconciled 03/16/25 by Di Gomes MD alendronate mg PO cholecalciferol (vitamin D3) 25 mcg PO DAILY levocetirizine 5 mg PO BEDTIME metoprolol succinate ER 25 mg PO DAILY simvastatin 20 mg PO Q OTHER DAY Tobacco use date assessed: 03/16/25 Fall risk assessment: No Falls in past year Last assessed Fall Risk: 03/16/25 Dental Screening Dental Screen Date: 03/16/25 Did you have a dental visit in the last 12 months?: Yes Did you have a dental problem in the last 6 months where you did not have access to dental care?: No Was dental information given to patient?: Patient has dentist HPI 6m follow up HPI Details T 4-year-old lady with history of hyperlipidemia, seasonal allergies, hypertension, 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 Mays, here today for her follow-up. She has been compliant with her diet, has been exercising, with recent fasting labs showing normal fasting lipids and fasting glucose levels, as well as vitamin-D level. Blood pressure controlled with metoprolol succinate ER 25 mg daily. Feels well with no complaints at present time [facility] Medical History (Updated 03/16/25 @ 08:39 by Di Gomes MD) Osteoarthritis of foot, right Seasonal allergies Osteoporosis of lumbar spine Osteopenia of multiple sites COVID-19 vaccine series completed Menopause Tubular adenoma of colon Essential hypertension Hyperlipidemia Surgical History H/O colonoscopy History of tubal ligation Family History Father HTN (hypertension) Diabetes mellitus Bone cancer Mother Hyperlipidemia Brother No problems noted. Brother No problems noted. Brother No problems noted. Son No problems noted. Daughter No problems noted. Social History Household Members: Spouse Housing: House Patient Tobacco Use Status: Never used Tobacco e-Cigarette/Vaping Use: Never Used Current occupational status: retired Cognitive needs: No Hearing needs: No Vision needs: Yes Questionnaire PHQ-9 Over the last 2 weeks, how often have you been bothered by any of the following problems? 1. Little interest or pleasure in doing things: not at all 2. Feeling down, depressed, or hopeless: not at all 3. Trouble falling or staying asleep, or sleeping too much: not at all 4. Feeling tired or having little energy: several days 5. Poor appetite or overeating: not at all 6. Feeling bad about yourself - or that you are a failure or have let yourself or your family down: not at all 7. Trouble concentrating on things, such as reading the newspaper or watching television: not at all 8. Moving or speaking so slowly that other people could have noticed. Or the opposite - being so fidgety or restless that you have been moving around a lot more than usual: not at all 9. Thoughts that you would be better off or of hurting yourself in some way: not at all Total score: 1 Depression Screening Interpretation: Negative Depression Screening Done: Yes 59711 - PHQ-9 Billing: Yes Source: Developed by Drs. Krish Zarate, Mariana Brower, Jarrell Shaw and colleagues, with an educational elva from [employer]. Thrive Questionnaire Date Thrive assessed: 04/01/24 I am a: Patient What is your living situation today?: I have a steady place to live Within the past 12 months, did the food you bought not last and you didn't have the money to get more?: Never true Within the past 12 months, did you worry whether your food would run out before you got money to buy more?: Never true Do you have trouble paying for medicines?: No Do you have trouble getting transportation to medical appointments?: No Do you have trouble paying your heating and electricity bill?: No Do you have trouble taking care of your child, family member or friend?: No Do you have trouble with day-to-day activities such as bathing, preparing meals, shopping, managing finances, etc.?: No Are you currently unemployed and looking for a job?: No Are you interested in more education?: No Please select the resources that you would like help with: None Currently or been in a relationship where the following occur: No concerns reported THRIVE Score: 0 AUDIT C Alcohol Use Questionnaire (AUDIT-C) 1. How often do you have a drink containing alcohol?: 2-3 times a week 2. How many drinks containing alcohol do you have on a typical day when you are drinking?: 1 or 2 3. How often do you have six or more drinks on one occasion?: Never Total Score: 3 LORI-7 AMB Questionnaire LORI-7 Date LORI - 7 assessed: 04/01/24 Feeling nervous, anxious, or on edge: 0 = Not at all Not being able to stop or control worryin = Not at all Worrying too much about different things: 0 = Not at all Trouble relaxin = Not at all Being so restless that it is hard to sit still: 0 = Not at all Becoming easily annoyed or irritable: 0 = Not at all Feeling afraid as if something awful might happen: 0 = Not at all Total LORI-7 score (0-4 normal; 5-9 mild; 10-14 moderate; 15-21 severe): 0 Source: Developed by Drs. Krish Zarate, Mariana Brower, Jarrell Shaw and colleagues, with an educational elva from [employer]. LORI-7 Assessment Billing LORI-7 Assessment Tool: LORI-7 Assessment 94240 Review of Systems Const Denies body aches, Denies difficulty sleeping, Denies fatigue, Denies fever(s) and Denies headache(s) Eyes Details: sees Dr Simons, has cataracts ENT Denies dizziness, Denies headache(s), Denies nasal congestion, Denies disequilibrium and Denies sore throat Card Denies chest pain, Denies irregular heart rhythm, Denies lightheadedness, Denies palpitations and Denies dyspnea Resp Denies cough and Denies dyspnea GI Denies abdominal pain, Denies change in bowel habits, Denies change in stool character, Denies dyspepsia, Denies heartburn and Denies nausea Denies hematuria, Denies hot flashes, Denies dysuria and Denies urinary hesitancy Musc Denies back pain, Denies myalgias, Denies joint swelling, Denies muscle weakness and Denies stiffness Skin/Breast Denies unusual bruising Neuro Denies dizziness, Denies headache(s) and Denies disequilibrium Psych Reports no additional complaints Endo Denies fatigue and Denies palpitations Jerrod/Lymph Reports no additional complaints Aller/Immun Reports seasonal rhinorrhea (Takes Zyrtec as needed) Physical exam (Primary Care) Vital Signs: Last Vital Signs Pulse 71 03/16/25 08:09 Resp 16 03/16/25 08:09 BP 112/70 03/16/25 08:09 Pulse Ox 97 03/16/25 08:09 Oxygen Delivery Method Room Air 03/16/25 08:09 BMI result Body Mass Index 25.7 Tobacco/Smoking Status: Tobacco use Status Tobacco use date assessed 03/16/25 03/16/25 08:11 Patient Tobacco Use Status Never used Tobacco 03/16/25 08:11 e-Cigarette/Vaping Use Never Used 03/16/25 08:11 PHQ-9: PHQ-9 Score PHQ-9: Total score 1 03/16/25 08:11 Depression Screening Interpretation: Negative Thrive Assessment: Date of Thrive Assessment Date Thrive assessed 04/01/24 03/16/25 08:11 Currently or been in a relationship where the following occur: No concerns reported Const General: comfortable, no acute distress and alert Orientation/consciousness: patient oriented x3 HENMT Ears: external ears normal General nose exam: Normal external nose present and No nasal discharge present Mouth: Normal oral and palatal mucosa present and moist mucous membranes Eyes General: appearance normal, both eyes and all related structures Neck Neck: Yes full ROM, Yes no lymphadenopathy and Yes supple Chest Chest palpation & inspection: normal inspection of the chest Resp Effort & Inspection: normal respiratory effort and able to speak in complete sentences Auscultation: clear to auscultation bilaterally Cardio Rate: regular rate Rhythm: regular rhythm Heart sounds: S1 normal heart sound present and S2 normal heart sound present GI Palpation (GI): Soft to palpation, nontender and no masses Auscultation: normal bowel sounds Back/Spine/Pelvis Back: No back tenderness Skin General skin exam: no rashes or lesions noted Neuro General: patient oriented x3, gait normal, tone normal, moves all extremities, Normal light touch and pain sensation and no focal motor deficits Cranial nerves: Yes CN's II-XII intact bilaterally Cognition (Neuro): normal cognition Extrem General: Yes full ROM, Yes no joint enlargement, Yes no clubbing, cyanosis or edema and Yes no calf tenderness Psych Appearance: grossly normal and well kempt Mental Status: mental status grossly normal Speech and movement: Normal speech and movement present Affect: normal affect Thought process: Normal thought process present Thought content: Normal thought content present Results Reviewed Results Reviewed: Name: Alicia Dunbar Age/Sex: 74/F : 1950 Unit#: [id number] Attend Dr: Di Gomes MD Re03/10/25 Status: DEP [facility]: SPEC : [id number] DIMAS: 03/10/25 STATUS: COMP REQ : [id number] RECD: 03/10/[address]: Di Gomes MD COMP: 03/10/25 ENTERED: 03/10/[address]: ORDERED: Met Prof Fast, ALT, Lipid Panel, Vitamin D 25-OH Test Result Flag Reference Sodium 141 135-145 mmol/L Potassium 4.4 3.3-5.1 mmol/L CL 108 96-108 mmol/L CO2 28 22-29 mmol/L Gap 9 L 12-20 BUN 17 H 9-16 mg/dL Creat 0.82 0.5-1.4 mg/dL eGFR > 60 Chronic Kidney Disease: Estimated GFR < 60 mL/min/1.73m2 Severe Kidney Disease: Estimated GFR < 15 mL/min/1.73m2 FBS 94 60-99 mg/dL CA 9.0 # 8.4-10.2 mg/dL ALT (GPT) 19 0-31 U/L Triglyceride 83 <150 mg/dL Desirable Triglyceride: less than 150 mg/dL Borderline High Triglyceride 150-199 mg/dL High Triglyceride: 200-499 mg/dL Very High Triglyceride: greater than or equal to 5OO mg/dL Cholesterol 193 <200 mg/dL Desirable Cholesterol: less than 200 mg/dL Borderline High Cholesterol: 200-239 mg/dL High Cholesterol: greater than 239 mg/dL LDL Calculated 99 <100 mg/dL Desirable LDL: less than 100 mg/dL Near Optimal/Above Optimal LDL: 110-129 mg/dL Borderline High LDL: 130-159 mg/dL High LDL: 160-189 mg/dL Very High LDL: greater than or equal to 190 mg/dL HDL 78 >40 mg/dL Desirable HDL: greater than 40 mg/dL Note: This HDL assay may give artificially low results in patients with liver disease. Vitamin D 25-OH 46.5 >30 ng/mL Health Based Reference Values* < 20 ng/mL Deficient 20-30 ng/mL Insufficient > 30 ng/mL Sufficient Coding Level of Care Code Est Pt Level 4 (26801) Complex EM visit Add On G2211 Diagnoses Seasonal allergies J30.2 Essential hypertension I10 Pure hypercholesterolemia E78.00 Hyperlipidemia type: pure hypercholesterolemia Additional Codes LORI-7 Assessment Billing - LORI-7 Assessment Tool: LORI-7 Assessment 58978 ([id number]) PHQ-9 - 88188 - PHQ-9 Billing: Yes ([id number]) Assessment & Plan Assessment & Plan (1) Seasonal allergies: Code(s): J30.2 - Other seasonal allergic rhinitis Category: Medical Plan: Continue cetirizine as needed for nasal congestion and runny nose (2) Essential hypertension: Code(s): I10 - Essential (primary) hypertension Category: Medical Plan: Blood pressure at goal of less than 130/80. Continue metoprolol succinate ER 25 mg once a Reinforced importance of following a low sodium diet, getting regular exercise, and lowering stress levels. (3) Hyperlipidemia: Code(s): E78.5 - Hyperlipidemia, unspecified Category: Medical Qualifiers: Hyperlipidemia type: pure hypercholesterolemia Qualified Code(s): E78.00 - Pure hypercholesterolemia, unspecified Plan: Fasting lipids are within normal limits, continue simvastatin 20 mg taken 1 tablet every other day. Will see her back for follow-up in six-month Orders: Orders Lipid Panel 09/05/25 E78.00 - Pure hypercholesterolemia, unspecified, I10 - Essential (primary) hypertension Aspartate Amino Transferase 09/05/25 E78.00 - Pure hypercholesterolemia, unspecified, I10 - Essential (primary) hypertension Alanine Aminotransferase 09/05/25 E78.00 - Pure hypercholesterolemia, unspecified, I10 - Essential (primary) hypertension Basic Metabolic Panel Fasting 09/05/25 E78.00 - Pure hypercholesterolemia, unspecified, I10 - Essential (primary) hypertension Medications: Refilled metoprolol succinate ER 25 mg PO DAILY 90 tabs 1RF I10 - Essential (primary) hypertension simvastatin 20 mg PO Q OTHER DAY 45 tabs 1RF E78.5 - Hyperlipidemia, unspecified
--- OUTSIDE RECORDS SUMMARY | 2025-03-16 08:05 | XMS_ITS | Patient Health Record ---
Author Organization [facility] Address [address] [place] [address] Care Team Providers Care Streetcar Starter Name Role Phone Mireya DANIELSON, Di Primary Care Provider Mark Venegas Jr Unavailable [phone] Allergies No Known Allergies Reason For Referral [...] Problem Status W/U Status Risk Notes Problem 470472446 Colon cancer screening (Z12.11) Active confirmed Plan Of Treatment Future Test Test Name Order Date COLONOSCOPY 06/16/2015 COLONOSCOPY 05/25/2021 Insurance Providers Payer Name Payer Address Payer Phone Subscriber Number Group Number Insured Name Patient Relationship to Insured Coverage Start Date Coverage End Date MEDICARE OF [place] [address] [place] [address] [phone] [id number] JONI VILLA Self - patient is the insured [facility] IN[facility]MNITY [address] [place] [address] [id number] JONI VILLA Self - patient is the insured Medical (General) History Medical History History ICD Code colonoscopy 04-29-2010 colon polyps elevated cholesterol high blood pressure Surgical History Surgery Date(Month/Year) tubal ligation
--- OUTSIDE RECORDS SUMMARY | 2025-03-16 08:05 | XMS_ITS ---
Author Organization [facility] Address [address] [place] [address] Care Team Providers Care Pneumatic Tester Name Role Phone Mireya DANIELSON, Di Boyd Primary Care Provider Un available Chely Simon Unavailable [phone] Allergies No Known Allergies REASON FOR VISIT [...] Status Risk Notes Problem Plantar fascial fibromatosis (11957437) Plantar fascial fibromatosis (M72.2) Active confirmed Problem [id number] Plantar fasciitis, right (M72.2) Active confirmed Vital Signs Height 5ft4in in 11/17/2024 Weight 145 lbs 11/17/2024 BMI 24.89 kg/m2 11/17/2024 Blood pressure systolic 110 mm Hg 11/17/19 25 Blood pressure diastolic 60 mm Hg 025 Encounters Encounter Location Date Provider Diagnosis [facility] [address] [place] [address] 11/17/2024 Chely Black Posterior tibial tendinitis of [...] * Alicia DUNBAR MDOB:[birth year] (74 yo F)Acc No.[id number]:11/17/2024 Progress Notes Patient:?Alicia DUNBAR Provider:?Chely Simon DPM :1950???Age:74 Y???Sex:Female D ate:11/17/2024 Address:[address] [place] [address], [facility] Pcp:Juan Chaney Subjective: * Chief Complaints: * [...] as directed, Dx Plantar Fasciitis.?? * Procedure Codes:?64740 X-RAY EXAM OF RIGHT FOOT 3V, Modifiers: 26 , MXK5861 AFO PLASTIC/OTH MATERIAL PREFAB * Preventive Medicine:? [...] Interfil injection therapy, as well as surgical Ida/Endoscopic Fasciitomy surgical procedures if needed. Recommendations were [...] Simon DPM Date:?2024 Generated for Guerrero guadalupe/Karlos/Branden on:?03/16/2025 08:05 AM EDT History and Physical Notes * [...]
--- OUTSIDE RECORDS SUMMARY | 2025-03-16 08:06 | XMS_ITS ---
Author Organization [facility] Roshan madhu Mckeon[place] Address [address] [facility] [place] [address] Care Team Providers Care Junior Network Administrator Name Role Phone Mireya DANIELSON, Di Boyd Primary Care Provider Un available Chely Simon Unavailable [phone] Allergies No Known Allergies REASON FOR VISIT [...] 01/08/2025 Encounters Encounter Location Date Provider Diagnosis [facility] [address] [place] [address] 01/08/2025 Chely Simon Posterior tibial tendinitis of [...] * Alicia DUNBAR MDOB:[birth year] (74 yo F)Acc No.[id number]:01/08/2025 Progress Notes Patient:?Alicia DUNBAR Provider:?Chely Simon DPM :1950???Age:74 Y???Sex:Female D ate:01/08/2025 Address:[address] [place], [place] [id number] Pcp:Juan Chaney Subjective: * Chief Complaints: * [...] yes, walking. ?Marital status: . 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 ???Drug/Alcohol:?AUDIT-C (Standard)?Did you have a drink [...]
--- OUTSIDE RECORDS SUMMARY | 2025-03-16 08:06 | XMS_ITS ---
Author Organization [facility] Address [address] [place] [address] Care Team Providers Care Children'S Tutor Name Role Phone Mireya DANIELSON, Di Boyd Primary Care Provider Un available Chely Simon Unavailable [phone] Lucho Bee Unavailable [phone] REASON FOR VISIT seen sooner Encounters Encounter Location Date Provider Diagnosis [facility] [address] [place] [address] 10/21/2024 Lucho Bee Plan Of Treatment No Information Progress Notes * Alicia DUNBAR MDOB:[birth year] (74 yo F)Acc No.[id number]:10/21/2024 Progress Notes Patient:?Alicia DUNBAR Provider:?Lucho Bee DPM :1950???Age:74 Y???Sex:Female D ate:10/21/2024 Address:[address] [place], [place] [id number] Pcp:Juan Chaney Subjective: * Chief Complaints: * [...] Bee DPM Date:?2023 Generated for Jorgei collins/Karlos/eTransmitting on:?03/16/2025 08:05 AM EDT
--- OUTSIDE RECORDS SUMMARY | 2025-03-16 08:06 | XMS_ITS | Patient Health Record ---
Author Organization [facility] Roshan madhu [place] Address [address] [facility] [place] [address] Care Team Providers Care Bobbin Disker Name Role Phone Mireya DANIELSON, Di Boyd Primary Care Provider Un available BlackKyleighe Unavailable [phone] Lucho Bee Unavailable [phone] Allergies No Known Allergies Results Component Value [...] Status Risk Notes Problem Plantar fascial fibromatosis (20279096) Plantar fascial fibromatosis (M72.2) Active confirmed Problem Localized, primary osteoarthritis of the ankle and/or foot (959644352) Osteoarthritis of right ankle and foot (M19.071) Active confirmed Problem 44755188 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 Problem [id number] Plantar fasciitis, right (M72.2) Active confirmed Vital Signs Heart Rate 69 /min 01/08/2025 Blood pressure diastolic 84 mm Hg 01/08/2025 Height 5ft 4 in in 01/08/2025 Blood pressure systolic 126 mm Hg 01/08/2025 Weight 140 lbs 01/08/2025 BMI 24.03 kg/m2 01/08/2025 Encounters Encounter Location Date Provider Diagnosis [address] [address] 10/06/2024 Chely Black Posterior tibial tendinitis of right lower extremity M76.821 ; Pain in right foot M79.671 ; 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 ; Osteoarthritis of right ankle and foot M19.071 and Pain in right ankle and joints of right foot M25.[address] [address] 11/17/2024 Chely Black Posterior tibial tendinitis of right lower extremity M76.821 ; Pain in right foot M79.671 ; 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 ; Osteoarthritis of right ankle and foot M19.071 ; Pain in right ankle and joints of right foot M25.571 and Plantar fasciitis, right M72.[address] [address] 01/08/2025 Chely Black Posterior tibial tendinitis of right lower extremity M76.821 ; Osteoarthritis of right ankle and foot M19.071 and Plantar fasciitis, right M72.[address] [address] 10/06/2024 Chely Simon Assessments Encounter Date Diagnosis [...] [employer] [address] [place] [address] [id number] Alicia Dunbar Self - patient is the insured [facility] [address] [place] [address] [id number] Alicia Dunbar Self - patient is the insured Medical (General) History Medical History History ICD Code CAD (Cholesterol) Chicken pox Measles Mumps High Blood Pressure
[2025-03-16 08:09] VITALS: BP 112/70; PULSE 71; RESP 16; O2SAT 97; BMI 25.7
== END 2025-03-16 08:42 | disposition home or self-care (01) ==
LOC: HO.HMCC 08:01
PROVIDERS: PCP Internal Medicine; Visit Provider Internal Medicine
DX: J30.2 Other seasonal allergic rhinitis (principal); I10 Essential (primary) hypertension; E78.00 Pure hypercholesterolemia, unspecified

== ENCOUNTER → 2025-03-16 08:00 | Outpatient (BNVA) | payer MEDICARE, OTHER, SELFPAY | PROVIDERS: PCP Internal Medicine; Visit Provider Internal Medicine | DX: J30.2 Other seasonal allergic rhinitis (principal); I10 Essential (primary) hypertension; E78.00 Pure hypercholesterolemia, unspecified | CPT/HCPCS: 96127; 99212 ==

== ENCOUNTER 2025-08-19 10:06 | Outpatient (REF) | payer MEDICARE, OTHER, SELFPAY ==
--- NOTE | ~2025-08-19 | XR_ITS ---
EXAMINATION: XR SHOULDER 2 OR MORE VIEWS LEFT HISTORY: M25.512 - Pain in left shoulder COMPARISON: There are no prior studies available for comparison. FINDINGS: Three views of the left shoulder are submitted. Osseous mineralization is normal. There is no fracture or dislocation. The glenohumeral joint space is maintained. There is moderate narrowing of the AC joint. There is a possible nodular density in the left upper lung zone. XR/XR shoulder LT min 2V IMPRESSION: 1. Moderate narrowing of the AC joint. 2. Possible nodular density in the left upper lung zone. PA and lateral views of the chest are recommended. Findings were communicated to Dr. Daniele Nagel by secure text message on 08/19/2025 at 10:49 AM. Electronically signed by: Krish Hodge MD 08/19/2025 10:50 AM EDT
== END 2025-08-19 10:07 | disposition home or self-care (01) ==
LOC: HO.HMGCX 10:06
PROVIDERS: PCP Internal Medicine; Visit Provider Internal Medicine
DX: M25.512 Pain in left shoulder (principal)
CPT/HCPCS: 73030; 99212

== ENCOUNTER 2025-08-19 10:06 | Outpatient (AMB) | payer MEDICARE, OTHER, SELFPAY ==
--- OUTSIDE RECORDS SUMMARY | 2024-10-21 05:30 | XMS_ITS ---
Author Organization [facility] Address [address] [place] [address] Care Team Providers Care Event Decorator Name Role Phone Mireya DANIELSON, Di Boyd Primary Care Provider Un available BlackChely Unavailable [phone] Lucho Bee Unavailable [phone] REASON FOR VISIT seen sooner Encounters Encounter Location Date Provider Diagnosis [facility] [address] [place] [address] 10/21/2024 Lucho Bee Plan Of Treatment No Information Progress Notes * Alicia DUNBAR MDOB:[birth year] (75 yo F)Acc No.[id number]:10/21/2024 Progress Notes Patient: Josselin Alicia VARELA Provider: Bhavik Bee DPM :1950 A ge:74 Y S ex:Female Date:10/21/2024 Address:[address] [place] [address] Rafiq Patel [facility] Pcp:Juan Chaney Subjective: * Chief Complaints: * [...] Date: 12/22/2023 Generated for Jorgei collins/Karlos/eTransmitting on: 11:53 AM EDT
[2025-08-19 10:18] VITALS: BP 106/84; PULSE 100; TEMP 36.5; O2SAT 99; BMI 25.3
--- NOTE | 2025-08-19 10:18 | MHC.OFFWIV ---
Intake Vital Signs 08/19/25 10:18 Height 5 ft 3 in Weight 143 lb BMI 25.3 BP 106/84 Blood Pressure Location Rt brachial Position Sitting Pulse 100 Pulse Source Pulse Oximeter Temp 97.7 F Temp Source Oral Pulse Oximetry (%) 99 Oxygen Delivery Method Room Air Intake Visit Reasons: ep upper left arm Intake Note: pt presents with left arm pain with decreased ROM Patient Tobacco Use Status: Never used Tobacco Allergies No Known Allergies Allergy (Verified 08/19/25 10:18) Medication List - Last Reconciled 08/19/25 by Daniele Nagel MD alendronate mg PO QWEEK cholecalciferol (vitamin D3) 25 mcg PO DAILY levocetirizine 5 mg PO BEDTIME metoprolol succinate ER 25 mg PO DAILY simvastatin 20 mg PO Q OTHER DAY Do you need a note to return to daycare/school/sports/work: No HPI ep upper left arm HPI Details History of Present Illness The patient is a 75-year-old female presenting with upper left arm pain. Upper left arm pain: - Reports onset over a month ago with worsening severity over the past few weeks. - Describes inability to lift the arm straight up; limitation noted. - No recent fall or specific trauma noted. - Patient has osteoporosis and had been using three-pound weights as exercise. - Occasionally hears a popping sound in the affected area. - Pain localized without spreading and reported no associated swelling. - Patient has used ice and Voltaren as symptomatic relief with uncertain effectiveness. Medical History: - Osteoporosis - Suspected arthritis Problem List - Upper left arm pain - Osteoporosis - Suspected arthritis Plan - Advise physical therapy to improve the range of motion in the left arm. - Order an X-ray of the shoulder to assess for any potential injury or underlying issues. - Prescribe diclofenac oral tablets for a duration of 7-10 days, to be taken with meals, to provide relief from inflammation and pain. - Patient to continue use of Voltaren gel and ice for local symptom management. Review of Systems Negative except in HPI Physical Exam General: No acute distress HEENT: No acute findings Neck: Supple Respiratory system: Able to talk in full sentences, no audible wheeze Gastrointestinal: No pain Extremities: Pain in upper left arm, limited range of motion, no pain on palpation COPPER PLATER: Alert awake oriented x3 motor intact Skin: Normal turgor [facility] Medical History Osteoarthritis of foot, right Seasonal allergies Osteoporosis of lumbar spine Osteopenia of multiple sites COVID-19 vaccine series completed Menopause Tubular adenoma of colon Essential hypertension Hyperlipidemia Surgical History H/O colonoscopy History of tubal ligation Family History Father HTN (hypertension) Diabetes mellitus Bone cancer Mother Hyperlipidemia Brother No problems noted. Brother No problems noted. Brother No problems noted. Son No problems noted. Daughter No problems noted. Social History Household Members: Spouse Housing: House Patient Tobacco Use Status: Never used Tobacco e-Cigarette/Vaping Use: Never Used Current occupational status: retired Cognitive needs: No Hearing needs: No Vision needs: Yes Physical Exam Vital Signs: Last Vital Signs Temp 97.7 F 08/19/25 10:18 Pulse 100 08/19/25 10:18 BP 106/84 08/19/25 10:18 Pulse Ox 99 08/19/25 10:18 Oxygen Delivery Method Room Air 08/19/25 10:18 BMI result Body Mass Index 25.3 Assessment & Plan Assessment & Plan (1) Pain, joint, shoulder, left: Code(s): M25.512 - Pain in left shoulder Plan Problem List - Upper left arm pain - Osteoporosis - Suspected arthritis Plan - Advise physical therapy to improve the range of motion in the left arm. - Order an X-ray of the shoulder to assess for any potential injury or underlying issues. - Prescribe diclofenac oral tablets for a duration of 7-10 days, to be taken with meals, to provide relief from inflammation and pain. - Patient to continue use of Voltaren gel and ice for local symptom management. Orders: Orders XR shoulder LT min 2V Today M25.512 - Pain in left shoulder Medications: New diclofenac sodium 50 mg PO Q12H 20 tabs 0RF pain 10 days Coding Level of Care Code Est Pt Level 3 (38455) Diagnoses Pain, joint, shoulder, left M25.512
--- OUTSIDE RECORDS SUMMARY | 2025-08-19 11:53 | XMS_ITS | Encounter Summary ---
Author Organization [facility] Address [address] [place] [address] Phone Care Team Providers Care Dry Boss Name Role Phone Di Gomes MD Primary Care Provider Encounter Details Date Type Department Care Team (Late Contact Info) Description 11/12/2024 Ancillary Orders [facility],Outside Imaging [address] [place], [place] [phone] System, Provider Not In, PhD Partners [address] [address] Social History Tobacco Use Types Packs/Day Years Used Date Smoking Tobacco: Former Cigarettes Smokeless Tobacco: Never Alcohol Use Standard Drinks/Week Comments Yes 3 (1 standard drink = 0.6 oz pur e alcohol) Education Answer Date Recorded Are you interested in more education? Not on edmund e 05/16/2024 Are you concerned about learning? Not on file 05/16/2024 No 05/16/2024 No 05/16/2024 Digital Access Answer Date Recorded No 05/16/2024 No 05/16/2024 Reliable internet access at home? Not on file 05/16/2024 Device with a working camera? Not on file Comments Unknown Sex and Gender Information Value Date Recorded Sex Assigned at Not on file Legal Sex Female 1:34 PM EDT Gender Identity Not on file Sexual Orientation Not on file documented as of this encounter Plan of Treatment Upcoming Encounters Date Type Department Care Team (Late Contact Info) Description 11/19/2025 2:00 PM EST Office Visit [facility] [address] [place] [address] Vira Mays MD [address] [place] [address] [email or web address] documented as of this encounter Results * DXA Outside (No Interpretation) (10/08/2018 12:00 AM EST) Narrative Yaima Bianchi - 11/12/2024 2:39 PM EST This study is for PACS storage only and not for interpretation. Procedure Note Yaima Bianchi - 11/12/2024 This study is for PACS storage only and not for interpretation. us Provider Not In System PhD IMG OUTSIDE IMAGING W /OUT INTERPRETATION Final Result documented in this encounter Visit Diagnoses Not on filedocumented in this encounter Care Teams Dry Boss Relationship Specialty Start Date End Date Di Gomes MD [facility] [place] [address] PCP - General Internal Medicine 05/01/24 documented as of this encounter Additional Source Comments The information contained in this document represents components of the legal health record. It is not the complete legal health record.[facility]
--- OUTSIDE RECORDS SUMMARY | 2025-08-19 11:53 | XMS_ITS | Encounter Summary ---
Author Organization [facility] Address [address] [place] [address] Phone Care Team Providers Care Supervisor Research Shop Name Role Phone Di Gomes MD Primary Care Provider Encounter Details Date Type Department Care Team (Late Contact Info) Description 11/12/2024 Ancillary Orders [facility],Outside Imaging [address] [place], [place] [phone] System, Provider Not In, PhD [facility] [address] [address] Social History Tobacco Use Types Packs/Day Years [...] PM EST Office Visit [facility] [address] [place] [address] Vira Mays MD [address] [place] [address] [email or web address] documented as of this encounter Results * DXA Outside (No Interpretation) (11/26/2020 12:00 AM EST) Narrative Yaima Bianchi - 11/12/2024 2:30 PM EST This study is for PACS storage only and not for interpretation. Procedure Note Yaima Bianchi - 11/12/2024 This study is for PACS storage only and not for interpretation. us Provider Not In System PhD IMG OUTSIDE IMAGING W /OUT INTERPRETATION Final Result documented in this encounter Visit Diagnoses Not on filedocumented in this encounter Care Teams Supervisor Research Shop Relationship Specialty Start Date End Date Di Gomes MD [facility] [place] [address] PCP - General Internal Medicine 05/01/24 documented as of this encounter Additional Source Comments The information contained in this document represents components of the legal health record. It is not the complete legal health record.[facility]
--- OUTSIDE RECORDS SUMMARY | 2025-08-19 11:53 | XMS_ITS | Encounter Summary ---
Author Organization [facility] Address [address] [place] [address] Phone Care Team Providers Care Immigration Officer Name Role Phone Di Gomes MD Primary Care Provider Encounter Details Date Type Department Care Team (Late Contact Info) Description 11/18/2024 Ancillary Orders [facility],Outside Imaging [address] [place], [place] [phone] System, Provider Not In, PhD [facility] [address] [address] Social History Tobacco Use Types Packs/Day Years [...] PM EST Office Visit [facility] [address] [place] [address] Vira Mays MD [address] [place] [address] [email or web address] documented as of this encounter Results * DXA Outside (No Interpretation) (02/19/2024 12:00 AM EDT) Narrative Yaima Bianchi - 11/18/2024 11:27 AM EST This study is for PACS storage only and not for interpretation. Procedure Note Yaima Bianchi - 11/18/2024 This study is for PACS storage only and not for interpretation. us Provider Not In System PhD IMG OUTSIDE IMAGING W /OUT INTERPRETATION Final Result documented in this encounter Visit Diagnoses Not on filedocumented in this encounter Care Teams Immigration Officer Relationship Specialty Start Date End Date Di Gomes MD [facility] [address] PCP - General Internal Medicine 05/01/24 documented as of this encounter Additional Source Comments The information contained in this document represents components of the legal health record. It is not the complete legal health record.[facility]
--- OUTSIDE RECORDS SUMMARY | 2025-08-19 11:53 | XMS_ITS | Clinical Summary ---
Author Organization [facility] Address [address] [place], [place] [phone] Phone Care Team Providers Care Rn Enterostomal Name Role Phone Di Gomes MD Primary Care Provider Allergies No known active allergies Medications metoprolol succinate (TOPROL-XL) 25 MG 24 hr tablet Take 1 tablet by mouth every morning. 4 Active simvastatin (ZOCOR) 20 MG tablet Take 20 mg by mouth every other day. 4 Active cholecalciferol, vitamin D3, (VITAMIN D3) 25 mcg (1,000 unit) capsule Take 1,000 Units by mouth daily. Active alendronate (FOSAMAX) 70 MG tabletIndications :Age-related osteoporosis without current pathological fracture Take 1 tablet (70 mg total) by mouth every 7 days. Take in the morning with a full glass of water, on an empty stomach, and do not take anything else by mouth or lie down for the next 30 min. 12 tablet 3 5 Active Active Problems Problem Noted Date Diagnosed Date Age-related osteoporosis wit hout current pathological fracture 11/11/2024 Assessment & Plan (11/11/2024 2:14 PM EST): 74 yo post-menopausal woman with osteoporosis on bone density. She has no hx of fracture. She is not at high risk for falls. Her mother has had hip fracture. She is getting reasonable intake of calcium via diet & is on vitamin D supplements. She had been treated for some period of time, sounds like in the remote past, with alendronate without issues tolerating. Reviewed normal bone physiology across the lifespan. Reviewed role of adequate calcium & vitamin D, weight-bearing exercise, avoiding falls and pharmacologic rx with risks/benefits. Advised her to refer to [facility] patient information @ calcium & vitamin D & prevention and treatment of osteoporosis, beyond the basics for additional information. Will check labs today. Will obtain full report of bone density. She is a candidate for pharmacologic rx. Advised her to review information from [facility]. Will touch base after labs & determine plan. Family History Medical History Relation Comments Diabetes Brother No Known Problems Daughter Cancer Father bone CA, age 78 Heart attack Maternal Grandfather Cervical cancer Maternal Grandmother Anxiety disorder Mother Hip fracture Mother Hyperlipidemia Mother Hypertension Mother Thyroid disease Mother No Known Problems Son Relation Status Comments Brother Alive Daughter Alive Father Maternal Grandfather Maternal Grandmother Mother Alive Paternal Grandmother Son Alive Social History Tobacco Use Types Packs/Day Years Used Date Smoking Tobacco: Former Cigarettes Smokeless Tobacco: Never Tobacco Cessation:Counseling Given: Not Answered Alcohol Use Standard Drinks/Week Comments Yes 3 [...] on file Sexual Orientation Not on file Last Filed Vital Signs Vital Sign Reading Time Taken Comments Blood Pressure 110/60 11/10/2024 1:52 PM EST Pulse 64 11/10/2024 1:52 PM EST Temperature - - Respiratory Rate - - Oxygen Saturation 97% 11/10/2024 1:52 PM EST Inhaled Oxygen Concentration - - Weight 66.7 kg (147 lb) 11/10/2024 1:52 PM EST Height 161.5 cm (5' 3.58 ) 11/10/2024 1:52 PM ES T Body Mass Index 25.56 11/10/2024 1:52 PM EST Plan of Treatment Upcoming Encounters Date Type Department Care Team (Late st Contact Info) Description 11/19/2025 2:00 PM EST Office Visit [facility] [address] [place] [address] [place] [address] Vira Mays MD [address] [place] [address] Health Maintenance Due Date Last Done Comments Adult Td,Tdap Booster 1950 LIPID PANEL 1950 DEPRESSION SCREENING 1961 SMOKING Hx and SMOKELESS TOB ACCO SCREENING 1962 HEPATITIS C SCREENING 1967 PNEUMOCOCCAL VACCINES (50+ y ears) (1 of 1 - PCV) 1999 ZOSTER VACCINES (1 of 2) 1999 OSTEOPOROSIS SCREENING INITI AL (ONE-TIME) 2014 RSV VACCINE (1 - 1-dose 75+ series) 2024 INFLUENZA VACCINE (#1) 2025 COVID-19 VACCINE (1 - 2024-2 6 season) 2025 HEPATITIS A VACCINES Aged Out No long er eligible based on patient's age to complete this topic HIB VACCINES Aged Out No longer eligi ble based on patient's age to complete this topic MENINGOCOCCAL VACCINES (ACWY) Aged Out No longer eligible based on patient's age to complete this topic MENINGOCOCCAL VACCINES (B) Aged Out N o longer eligible based on patient's age to complete this topic Medical Devices Not on file Insurance MEDICARE PART A & B [facility] MEDICARE SUPPLEMENT MEDICARE PART A & B [facility] MEDICARE SUPPLEMENT MEDICARE PART A & B [employer] MEDICARE SUPPLEMENT MEDICARE PART A & B [employer] MEDICARE SUPPLEMENT MEDICARE PART A & B [facility] MEDIC[facility] SUPPLEMENT MEDICARE PART A & B [facility] MEDICARE SUPPLEMENT [facility] Address: [address] [address] Care Teams Rn Enterostomal Relationship Specialty Start Date End Date Di Gomes MD [address] [facility] [address] [place] [phone] PCP - General Internal Medicine 05/01/24 Additional Source Comments The information contained in this document represents components of the legal health record. It is not the complete legal health record.[facility]
--- OUTSIDE RECORDS SUMMARY | 2025-08-19 11:53 | XMS_ITS | Patient Health Record ---
Author Organization [facility] Address [address] [place] [address] Care Team Providers Care Trailhead Maintenance Worker Name Role Phone Mireya DANIELSON, Di Primary [...] at 5:00 p.m. the day before the procedure; Duration: 1 day 05/25/2021 Active Immunizations Vaccine Route Administration Date Status Comme nts Flu vaccine no Preserv 3 and > Unknown 08/19/2014 Admin istered Influenza Unknown 08/05/2020 Administered Problems Problem Type SNOMED Code ICD Code Onset Dates Problem Status W/U Status Risk Notes Problem Colon cancer screening (126649900) Colon cancer screening (Z12.11) Active confirmed Plan Of Treatment Future Test Test Name Order Date COLONOSCOPY 06/16/2015 COLONOSCOPY 05/25/2021 Insurance Providers Payer Name Payer Address Payer Phone Subscriber Number Group Number Insured Name Patient Relationship to Insured Coverage Start Date Coverage End Date [place] [address] [place] [address] [id number] JONI VILLA Self - patient is the insured [facility] [address] [place] [address] [id number] JONI VILLA Self - patient is the insured Medical (General) History Medical History History ICD Code colonoscopy 04-29-2010 colon polyps elevated cholesterol high blood pressure Surgical History Surgery Date(Month/Year) tubal ligation
--- OUTSIDE RECORDS SUMMARY | 2025-08-19 11:53 | XMS_ITS | Patient Health Record ---
Author Organization [facility] Roshan [facility] Address [address] [facility] [place] [address] Care Team Providers Care Shared Services Representative Name Role Phone Mireya DANIELSON, Di Boyd Primary Care Provider Un available Black Chely Unavailable [phone] Lucho Bee Unavailable [phone] Allergies No Known Allergies Results Component Value [...] Medrol 4 MG as directed Orally d aily; Duration: 6 days 11/17/2024 Active Social History Tobacco [...] Status Risk Notes Problem Plantar fascial fibromatosis (94205016) Plantar fascial fibromatosis (M72.2) Active confirmed Problem Localized, primary osteoarthritis of the ankle and/or foot (293302355) Osteoarthritis of right ankle and foot (M19.071) Active confirmed Problem 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 Problem Plantar fascial fibromatosis (41963187) Plantar fasciitis, right (M72.2) Active confirmed Vital Signs Heart Rate 69 /min 01/08/2025 Blood pressure diastolic 84 mm Hg 01/08/2025 Height 5ft 4 in in 01/08/2025 Blood pressure systolic 126 mm Hg 01/08/2025 Weight 140 lbs 01/08/2025 BMI 24.03 kg/m2 01/08/2025 Encounters Encounter Location Date Provider Diagnosis [address] [address] 10/06/2024 Chely Black Posterior tibial tendinitis of right lower extremity M76.821 ; Pain in right foot M79.671 ; 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 ; Osteoarthritis of right ankle and foot M19.071 and Pain in right ankle and joints of right foot M25.[address] [address] 11/17/2024 Chely Black Posterior tibial tendinitis of right lower extremity M76.821 ; Pain in right foot M79.671 ; 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 ; Osteoarthritis of right ankle and foot M19.071 ; Pain in right ankle and joints of right foot M25.571 and Plantar fasciitis, right M72.[address] [address] 01/08/2025 Chely Black Posterior tibial tendinitis of right lower extremity M76.821 ; Osteoarthritis of right ankle and foot M19.071 and Plantar fasciitis, right M72.[address] [address] 10/06/2024 Chely Simon Assessments Encounter Date Diagnosis [...] [employer] [address] [place] [address] [phone] -[facility] [id number] Alicia Dunbar Self - patient is the insured 4 obopay ([facility]) [address] [place] [address] [id number] Alicia Dunbar Self - patient is the insured Medical (General) History Medical History History ICD Code CAD (Cholesterol) Chicken pox Measles Mumps High Blood Pressure
== END 2025-08-19 11:21 | disposition home or self-care (01) ==
PROVIDERS: PCP Internal Medicine; Visit Provider Internal Medicine
DX: M25.512 Pain in left shoulder (principal)

== ENCOUNTER → 2025-08-19 10:35 | Outpatient (BNV) | payer MEDICARE, OTHER, SELFPAY | PROVIDERS: PCP Internal Medicine; Visit Provider Radiology Diagnostic Radiology | DX: M25.512 Pain in left shoulder (principal) | CPT/HCPCS: 73030 ==

== ENCOUNTER 2025-08-20 11:27 | Outpatient (REF) | payer MEDICARE, OTHER, SELFPAY ==
--- OUTSIDE RECORDS SUMMARY | 2024-10-21 05:30 | XMS_ITS ---
Author Organization [facility] Address [address] [place] [address] Care Team Providers Care Fagot Maker Name Role Phone Mireya DANIELSON, Di Boyd Primary Care Provider Un available BlackCheyl Unavailable [phone] Lucho Bee Unavailable [phone] REASON FOR VISIT seen sooner Encounters Encounter Location Date Provider Diagnosis [facility] [address] [place] [address] 10/21/2024 Lucho Bee Plan Of Treatment No Information Progress Notes * Alicia DUNBAR MDOB:[birth year] (75 yo F)Acc No.[id number]:10/21/2024 Progress Notes Patient: Josselin Alicia VAERLA Provider: Bhavik Bee DPM :1950 A ge:74 Y S ex:Female Date:10/21/2024 Address:[address] [place] [address] Rafiq Patel [facility] Pcp:Juan Chaney Subjective: * Chief Complaints: * [...] Bhavik Bee DPM Date: 12/22/2023 Generated for Jorgei collins/Karlos/eTransmitting on: 02:45 PM EDT
--- NOTE | ~2025-08-20 | XR_ITS ---
EXAMINATION: XR CHEST CLINICAL INFORMATION: R91.1 - Solitary pulmonary nodule; possible nodule seen on left shoulder radiograph 08/19/2025. COMPARISON: Left shoulder radiographs 08/19/2025. No prior chest x-ray. TECHNIQUE: 2 views of the chest were obtained. FINDINGS: The cardiac, hilar, and mediastinal contours are normal. The lungs are clear bilaterally. No definite nodule is appreciated. There is no pneumothorax or pleural effusion. There is no focal osseous or soft tissue abnormality. XR/XR chest 2V IMPRESSION: 1. No active pulmonary disease. Specifically, no nodule is evident. The nodular abnormality on the left shoulder radiograph from 08/19/2025 is not evident on this examination. Because of the insensitivity of plain film radiographs for the detection of nodules, CT should be considered. Electronically signed by: Rc Lux MD 08/20/2025 11:49 AM EDT
--- OUTSIDE RECORDS SUMMARY | 2025-08-20 14:45 | XMS_ITS | Patient Health Record ---
Author Organization [facility] Address [address] [place] [address] Care Team Providers Care Rag Cutting Machine Operator Name Role Phone Mireya DANIELSON, Di Primary [...] Status Risk Notes Problem Colon cancer screening (160418925) Colon cancer screening (Z12.11) Active confirmed Plan Of Treatment Future Test Test Name Order Date COLONOSCOPY 06/16/2015 COLONOSCOPY 05/25/2021 Insurance Providers Payer Name Payer Address Payer Phone Subscriber Number Group Number Insured Name Patient Relationship to Insured Coverage Start Date Coverage End Date [place] [address] [place] [address] [id number] JONI VILLA Self - patient is the insured [facility] INDEMNITY [address] [place] [address] [id number] JONI VILLA Self - patient is the insured Medical (General) History Medical History History ICD Code colonoscopy 04-29-2010 colon polyps elevated cholesterol high blood pressure Surgical History Surgery Date(Month/Year) tubal ligation
--- OUTSIDE RECORDS SUMMARY | 2025-08-20 14:45 | XMS_ITS | Patient Health Record ---
Author Organization [facility] Roshan madhu William Address [address] 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 Problem Plantar fascial fibromatosis (86243539) Plantar fasciitis, right (M72.2) Active confirmed Vital Signs Heart Rate 69 /min 01/08/2025 Blood pressure diastolic 84 mm Hg 01/08/2025 Height 5ft 4 in in 01/08/2025 Blood pressure systolic 126 mm Hg 01/08/2025 Weight 140 lbs 01/08/2025 BMI 24.03 kg/m2 01/08/2025 Encounters Encounter Location Date Provider Diagnosis [address] [address] 10/06/2024 Chely Black Posterior tibial tendinitis of right lower extremity M76.821 ; Pain in right foot M79.671 ; 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 ; Osteoarthritis of right ankle and foot M19.071 and Pain in right ankle and joints of right foot M25.[address] [address] 11/17/2024 Chely Black Posterior tibial tendinitis of right lower extremity M76.821 ; Pain in right foot M79.671 ; 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 ; Osteoarthritis of right ankle and foot M19.071 ; Pain in right ankle and joints of right foot M25.571 and Plantar fasciitis, right M72.[address] [address] 01/08/2025 Chely Black Posterior tibial tendinitis of right lower extremity M76.821 ; Osteoarthritis of right ankle and foot M19.071 and Plantar fasciitis, right M72.[address] [address] 10/06/2024 Chely Simon Assessments Encounter Date Diagnosis [...] [employer] [address] [place] Barton [phone] -[facility] [id number] Alicia Dunbar Self - patient is the insured 4 [id number] ([facility]) [address] [place] [address] [id number] Alicia Dunbar Self - patient is the insured Medical (General) History Medical History History ICD Code CAD (Cholesterol) Chicken pox Measles Mumps High Blood Pressure
--- OUTSIDE RECORDS SUMMARY | 2025-08-20 14:45 | XMS_ITS | Clinical Summary ---
Author Organization [facility] Address [address] [place], [place] [phone] Phone Care Team Providers Care Box Feeder Name Role Phone Di Gomes MD Primary [...] with risks/benefits. Advised her to refer to [facility] patient information @ calcium & vitamin D & prevention and treatment of osteoporosis, beyond the basics for additional information. Will check labs today. Will obtain full report of bone density. She is a candidate for pharmacologic rx. Advised her to review information from [facility]. Will touch base after labs & determine [...] 2:00 PM EST Office Visit [facility] [address] [place] [address] [place] [address] Vira Mays MD [address] [place] [address] [email or web address] Health Maintenance Due Date Last Done Comments [...] file Insurance MEDICARE PART A & B [facility] [employer] MEDICARE SUPPLEMENT MEDICARE PART A & B [facility] [employer] MEDICARE SUPPLEMENT MEDICARE PART A & B [email or web address] MEDICARE SUPPLEMENT MEDICARE PART A & B [employer] MEDICARE SUPPLEMENT MEDICARE PART A & B [facility] MEDICARE SUPPLEMENT MEDICARE PART A & B [facility] [employer] MEDICARE SUPPLEMENT [facility][Note 2] Address: [address] [address] Care Teams Box Feeder Relationship Specialty Start Date End Date Di Gomes MD [address] [facility] [address] [place] [phone] PCP - General Internal Medicine 05/01/24 Additional Source Comments The information contained in this document represents components of the legal health record. It is not the complete legal health record.[facility]
--- OUTSIDE RECORDS SUMMARY | 2025-08-20 14:45 | XMS_ITS | Encounter Summary ---
Author Organization [facility] Address [address] [place] [address] Phone Care Team Providers Care Tele Marketing Executive Name Role Phone Di Gomes MD Primary Care Provider Encounter Details Date Type Department Care Team (Late Contact Info) Description 11/12/2024 Ancillary Orders [facility],Outside Imaging 30 [place], [place] [phone] System, Provider Not In, [facility] [address] [address] Social History Tobacco Use Types Packs/Day Years [...] PM EST Office Visit [facility] [address] [place] [address] Vira Mays MD [address] [place] [address] [email or web address] documented as of this encounter Results * [...] on filedocumented in this encounter Care Teams Tele Marketing Executive Relationship Specialty Start Date End Date Di Gomes MD [facility] [place] [address] PCP - General Internal Medicine 05/01/24 documented as of this encounter Additional Source Comments The information contained in this document represents components of the legal health record. It is not the complete legal health record.[facility]
--- OUTSIDE RECORDS SUMMARY | 2025-08-20 14:46 | XMS_ITS | Encounter Summary ---
Author Organization [facility] Address [address] [place] [address] Phone Care Team Providers Care Cement Finisher Name Role Phone Di Gomes MD Primary Care Provider Encounter Details Date Type Department Care Team (Late Contact Info) Description 11/12/2024 Ancillary Orders [facility],Outside Imaging [address] [place], [place] [phone] System, Provider Not In, [facility] [address] [address] Social History Tobacco Use Types Packs/Day Years [...] PM EST Office Visit [facility] [address] [place] [address] Vira Mays MD [address] [place] [address] [email or web address] documented as of this encounter Results * [...] on filedocumented in this encounter Care Teams Cement Finisher Relationship Specialty Start Date End Date Di Gomes MD [facility] [place] [address] PCP - General Internal Medicine 05/01/24 documented as of this encounter Additional Source Comments The information contained in this document represents components of the legal health record. It is not the complete legal health record.[facility]
--- OUTSIDE RECORDS SUMMARY | 2025-08-20 14:46 | XMS_ITS | Encounter Summary ---
Author Organization [facility] Address [address] [place] [address] Phone Care Team Providers Care Furniture Sprayer Name Role Phone Di Gomes MD Primary Care Provider Encounter Details Date Type Department Care Team (Late Contact Info) Description 11/18/2024 Ancillary Orders [facility],Outside Imaging 30 [place], [place] [phone] System, Provider Not In, [facility] [address] [address] Social History Tobacco Use Types Packs/Day Years [...] PM EST Office Visit [facility] [address] [place] [address] Vira Mays MD [address] [place] [address] [email or web address] documented as of this encounter Results * [...] on filedocumented in this encounter Care Teams Furniture Sprayer Relationship Specialty Start Date End Date Di Gomes MD [facility] [place] [address] PCP - General Internal Medicine 05/01/24 documented as of this encounter Additional Source Comments The information contained in this document represents components of the legal health record. It is not the complete legal health record.[facility]
== END 2025-08-20 11:28 | disposition home or self-care (01) ==
LOC: HO.HMGCX 11:27
PROVIDERS: PCP Internal Medicine; Visit Provider Internal Medicine
DX: R91.1 Solitary pulmonary nodule (principal)
CPT/HCPCS: 71046

== ENCOUNTER → 2025-08-20 11:31 | Outpatient (BNV) | payer MEDICARE, OTHER, SELFPAY | PROVIDERS: PCP Internal Medicine; Visit Provider Radiology Diagnostic Radiology | DX: R91.1 Solitary pulmonary nodule (principal) | CPT/HCPCS: 71046 ==

== ENCOUNTER 2025-09-18 08:50 | Outpatient (REF) | payer MEDICARE, OTHER, SELFPAY ==
--- OUTSIDE RECORDS SUMMARY | 2024-10-21 04:30 | XMS_ITS ---
Author Organization [facility] Address [address] [place] [address] Care Team Providers Care Foreign Student Adviser Name Role Phone Mireya DANIELSON, Di Boyd Primary Care Provider Un available Black, Chely Unavailable [phone] Lucho Bee Unavailable [phone] REASON FOR VISIT seen sooner Encounters Encounter Location Date Provider Diagnosis [facility] [address] [place] [address] 10/21/2024 Lucho Bee Plan Of Treatment No Information Progress Notes * Alicia DUNBAR MDOB:[birth year] (75 yo F)Acc No.[id number]:10/21/2024 Progress Notes Patient: Josselin Alicia VARELA Provider: Bhavik Bee DPM :1950 A ge:74 Y S ex:Female Date:10/21/2024 Address:[address] [place] [address] Rafiq Patel [id number] Pcp:Juan Chaney Subjective: * Chief Complaints: * 1 . Seen sooner. * Medical History: Objective: * Vitals: Assessment: Plan: * Treatment: * Images: * The named appointment provid er may or may not be the originator of this progress note, and it is not deemed complete until electronically signed by the appointment provider. Sign off status: Pending * Provider: Bhavik Bee DPM Date: 12/22/2023 Generated for Guerrero guadalupe/Karlos/eTransmitting on: 11/18/2024 09:14 AM EST
--- OUTSIDE RECORDS SUMMARY | 2025-09-18 09:13 | XMS_ITS | Encounter Summary ---
Author Organization [facility] Address [address] [place] [address] Phone Care Team Providers Care Stippler Name Role Phone Di Gomes MD Primary Care Provider Encounter Details Date Type Department Care Team (Late Contact Info) Description 11/12/2024 Ancillary Orders [facility],Outside Imaging 30 [place], [place] [phone] System, Provider Not In, [facility] [address] [address] Social History Tobacco Use Types Packs/Day Years [...] PM EST Office Visit [facility] [address] [place] [address] Vira Mays MD [address] [place] [address] [email or web address] documented as of this encounter Results * [...] on filedocumented in this encounter Care Teams Stippler Relationship Specialty Start Date End Date Di Gomes MD [facility] [place] [address] PCP - General Internal Medicine 05/01/24 documented as of this encounter Additional Source Comments The information contained in this document represents components of the legal health record. It is not the complete legal health record.[facility]
--- OUTSIDE RECORDS SUMMARY | 2025-09-18 09:13 | XMS_ITS | Patient Health Record ---
Author Organization [facility] Address [address] [place] [address] Care Team Providers Care Veterans Service Representative Name Role Phone Mireya DANIELSON, Di Primary [...] Status Risk Notes Problem Colon cancer screening (669513560) Colon cancer screening (Z12.11) Active confirmed Plan Of Treatment Future Test Test Name Order Date COLONOSCOPY 06/16/2015 COLONOSCOPY 05/25/2021 Insurance Providers Payer Name Payer Address Payer Phone Subscriber Number Group Number Insured Name Patient Relationship to Insured Coverage Start Date Coverage End Date MED[place] [address] [place] [address] [id number] JONI VILLA Self - patient is the insured [facility] INDEMNITY [address] [place] [address] [id number] JONI VILLA Self - patient is the insured Medical (General) History Medical History History ICD Code colonoscopy 04-29-2010 colon polyps elevated cholesterol high blood pressure Surgical History Surgery Date(Month/Year) tubal ligation
--- OUTSIDE RECORDS SUMMARY | 2025-09-18 09:13 | XMS_ITS | Clinical Summary ---
Author Organization [facility] Address [address] [place], [place] [phone] Phone Care Team Providers Care Cell Repairer Name Role Phone Di Gomes MD Primary [...] with risks/benefits. Advised her to refer to [facility] patient information @ calcium & vitamin D & prevention and treatment of osteoporosis, beyond the basics for additional information. Will check labs today. Will obtain full report of bone density. She is a candidate for pharmacologic rx. Advised her to review information from [facility]. Will touch base after labs & determine [...] 2:00 PM EST Office Visit [facility] [address] [place] [address] [place] [address] Vira Mays MD [address] [place] [address] Health Maintenance Due Date Last Done Comments [...] on patient's age to complete this topic IPV VACCINES Aged Out No longer eligi ble based on patient's age to complete this topic MENINGOCOCCAL VACCINES (ACWY) Aged Out No longer eligible based on patient's age to complete this topic MENINGOCOCCAL VACCINES (B) Aged Out N o longer eligible based on patient's age to complete this topic Medical Devices Not on file Insurance MEDICARE PART A & B [facility] [employer] MEDICARE SUPPLEMENT MEDICARE PART A & B [facility] [employer] [facility] EXTENSION MEDICARE SUPPLEMENT MEDICARE PART A & B [employer] MEDICARE SUPPLEMENT MEDICARE PART A & B [employer] MEDICARE SUPPLEMENT MEDICARE PART A & B [facility] EXTENSION MEDICARE SUPPLEMENT MEDICARE PART A & B [facility] EXTENSION MEDICARE SUPPLEMENT [facility] Address: [address] [address] Care Teams Cell Repairer Relationship Specialty Start Date End Date Di Gomes MD [address] [place] [address] PCP - General Internal Medicine 05/01/24 Additional Source Comments The information contained in this document represents components of the legal health record. It is not the complete legal health record.[facility]
--- OUTSIDE RECORDS SUMMARY | 2025-09-18 09:13 | XMS_ITS | Encounter Summary ---
Author Organization [facility] Address [address] [place] [address] Phone Care Team Providers Care Overlock Elastic Attacher Name Role Phone Di Gomes MD Primary Care Provider Encounter Details Date Type Department Care Team (Late Contact Info) Description 11/12/2024 Ancillary Orders [facility],Outside Imaging 30 [place], [place] [phone] System, Provider Not In, [facility] [address] [address] Social History Tobacco Use Types Packs/Day Years [...] PM EST Office Visit [facility] [address] [place] [address] Vira Mays MD [address] [place] [address] [email or web address] documented as of this encounter Results * [...] on filedocumented in this encounter Care Teams Overlock Elastic Attacher Relationship Specialty Start Date End Date Di Gomes MD [facility] [place] [address] PCP - General Internal Medicine 05/01/24 documented as of this encounter Additional Source Comments The information contained in this document represents components of the legal health record. It is not the complete legal health record.[facility]
--- OUTSIDE RECORDS SUMMARY | 2025-09-18 09:14 | XMS_ITS | Encounter Summary ---
Author Organization [facility] Address [address] [place] [address] Phone Care Team Providers Care Auto Leasing Manager Name Role Phone Di Gomes MD Primary Care Provider Encounter Details Date Type Department Care Team (Late Contact Info) Description 11/18/2024 Ancillary Orders [facility],Outside Imaging 30 [place], [place] [phone] System, Provider Not In, [facility] [address] [address] Social History Tobacco Use Types Packs/Day Years [...] PM EST Office Visit [facility] [address] [place] [address] Vira Mays MD [address] [place] [address] [email or web address] documented as of this encounter Results * [...] on filedocumented in this encounter Care Teams Auto Leasing Manager Relationship Specialty Start Date End Date Di Gomes MD [facility] [place] [address] PCP - General Internal Medicine 05/01/24 documented as of this encounter Additional Source Comments The information contained in this document represents components of the legal health record. It is not the complete legal health record.[facility]
--- OUTSIDE RECORDS SUMMARY | 2025-09-18 09:14 | XMS_ITS | Patient Health Record ---
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 Problem 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 Problem Plantar fascial fibromatosis (96489222) Plantar fasciitis, right (M72.2) Active confirmed Vital Signs Heart Rate 69 /min 01/08/2025 Blood pressure diastolic 84 mm Hg 01/08/2025 Height 5ft 4 in in 01/08/2025 Blood pressure systolic 126 mm Hg 01/08/2025 Weight 140 lbs 01/08/2025 BMI 24.03 kg/m2 01/08/2025 Encounters Encounter Location Date Provider Diagnosis [address] [address] 10/06/2024 Chely Black Posterior tibial tendinitis of right lower extremity M76.821 ; Pain in right foot M79.671 ; 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 ; Osteoarthritis of right ankle and foot M19.071 and Pain in right ankle and joints of right foot M25.[address] [address] 11/17/2024 Chely Black Posterior tibial tendinitis of right lower extremity M76.821 ; Pain in right foot M79.671 ; 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 ; Osteoarthritis of right ankle and foot M19.071 ; Pain in right ankle and joints of right foot M25.571 and Plantar fasciitis, right M72.[address] [address] 01/08/2025 Chely Black Posterior tibial tendinitis of right lower extremity M76.821 ; Osteoarthritis of right ankle and foot M19.071 and Plantar fasciitis, right M72.[address] [address] 10/06/2024 Chely Simon Assessments Encounter Date Diagnosis [...] [employer] [address] [place] [address] [phone] -[facility] [id number] Alicia Dunbar Self - patient is the insured 4 [employer] ([facility]) [address] [place] [address] [id number] Alicia Dunbar Self - patient is the insured Medical (General) History Medical History History ICD Code CAD (Cholesterol) Chicken pox Measles Mumps High Blood Pressure
[2025-09-18 09:45] LABS: Alanine Aminotransferase 14 U/L (0-31); Anion Gap 13 (12-20); Aspartate Amino Transferase 22 U/L (5-31); Blood Urea Nitrogen 17 mg/dL (9-16); Calcium 9.1 mg/dL (8.4-10.2); Carbon Dioxide 25 mmol/L (22-29); Chloride 108 mmol/L (96-108); Cholesterol 195 mg/dL (<200); Estimated Glomerular Filt Rate 57; HDL Cholesterol 73 mg/dL (>40); Potassium 4.5 mmol/L (3.3-5.1); Sodium 141 mmol/L (135-145); Triglycerides 91 mg/dL (<150)
== END 2025-09-18 08:51 | disposition home or self-care (01) ==
LOC: HO.LAB 08:50
PROVIDERS: PCP Internal Medicine; Visit Provider Internal Medicine
DX: I10 Essential (primary) hypertension (principal); E78.00 Pure hypercholesterolemia, unspecified
CPT/HCPCS: 36415; 80048; 80061; 84450; 84460

== ENCOUNTER 2025-09-22 08:21 | Outpatient (AMB) | payer MEDICARE, OTHER, SELFPAY ==
--- NOTE | 2025-09-22 08:35 | A.OFFPC_ITS ---
Vital Signs 09/22/25 08:47 Height 5 ft 3 in Weight 144 lb BMI 25.5 BP 130/70 Blood Pressure Location Rt brachial Position Sitting Respiration 16 Pulse 70 Pulse Source Pulse Oximeter Temp 97.6 F Temp Source Oral Pulse Oximetry (%) 97 Oxygen Delivery Method Room Air Intake Visit Reasons: PE Intake Note: Pt is here today for her PE: Last mammogram 02/24/25, bone density scan 02/19/24, colonoscopy 07/12/21 [employer] Required: No Allergies No Known Allergies Allergy (Verified 09/22/25 09:14) Medication List - Last Reconciled 09/22/25 by Di Gomes MD alendronate mg PO QWEEK cholecalciferol (vitamin D3) 25 mcg PO DAILY diclofenac sodium 50 mg PO Q12H 10 days levocetirizine 5 mg PO BEDTIME metoprolol succinate ER 25 mg PO DAILY simvastatin 20 mg PO Q OTHER DAY Tobacco use date assessed: 09/22/25 Fall risk assessment: No Falls in past year Last assessed Fall Risk: 09/22/25 Dental Screening Dental Screen Date: 09/22/25 Did you have a dental visit in the last 12 months?: Yes Did you have a dental problem in the last 6 months where you did not have access to dental care?: No Was dental information given to patient?: Patient has dentist HPI PE HPI Details 75 -year-old lady with history of hyperl ipidemia, seasonal allergies, hypertension, 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 Mays, here today for her physical exam. Has been compliant with taking her medications. Blood pressure stable and controlled on metoprolol succinate ER 25 mg taken daily and takes simvastatin every other day for control of her lipids which are within normal limits Has been having pain on abduction and hyperextension of left arm which has been present now for the last 2 weeks. X-ray of left shoulder showed mild narrowing in left AC joint. She has been taking a leave which affords only temporary relief. Has been difficulty reaching overhead with her left arm. Up-to-date with all her vaccines except for the new COVID booster. Up-to-date with her screening mammogram, due for a repeat colonoscopy in [address] Dubon [facility] Medical History Osteoarthritis of foot, right Seasonal allergies Osteoporosis of lumbar spine Osteopenia of multiple sites COVID-19 vaccine series completed Menopause Tubular adenoma of colon Essential hypertension Hyperlipidemia Surgical History H/O colonoscopy History of tubal ligation Family History Father HTN (hypertension) Diabetes mellitus Bone cancer Mother Hyperlipidemia Brother No problems noted. Brother No problems noted. Brother No problems noted. Son No problems noted. Daughter No problems noted. Social History Household Members: Spouse Housing: House Patient Tobacco Use Status: Never used Tobacco e-Cigarette/Vaping Use: Never Used Current occupational status: retired Cognitive needs: No Hearing needs: No Vision needs: Yes Questionnaire PHQ-9 Over the last 2 weeks, how often have you been bothered by any of the following problems? 1. Little interest or pleasure in doing things: not at all 2. Feeling down, depressed, or hopeless: not at all 3. Trouble falling or staying asleep, or sleeping too much: not at all 4. Feeling tired or having little energy: several days 5. Poor appetite or overeating: not at all 6. Feeling bad about yourself - or that you are a failure or have let yourself or your family down: not at all 7. Trouble concentrating on things, such as reading the newspaper or watching television: not at all 8. Moving or speaking so slowly that other people could have noticed. Or the opposite - being so fidgety or restless that you have been moving around a lot more than usual: not at all 9. Thoughts that you would be better off or of hurting yourself in some way: not at all Total score: 1 Depression Screening Interpretation: Negative Depression Screening Done: Yes Source: Developed by Drs. Krish Zarate, Mariana Brower, Jarrell Shaw and colleagues, with an educational elva from [employer]. Thrive Questionnaire Date Thrive assessed: 09/22/25 I am a: Patient What is your living situation today?: I have a steady place to live Within the past 12 months, did the food you bought not last and you didn't have the money to get more?: Never true Within the past 12 months, did you worry whether your food would run out before you got money to buy more?: Never true Do you have trouble paying for medicines?: No Do you have trouble getting transportation to medical appointments?: No Do you have trouble paying your heating and electricity bill?: No Do you have trouble taking care of your child, family member or friend?: No Do you have trouble with day-to-day activities such as bathing, preparing meals, shopping, managing finances, etc.?: No Are you currently unemployed and looking for a job?: No Are you interested in more education?: No Please select the resources that you would like help with: None Currently or been in a relationship where the following occur: No concerns reported THRIVE Score: 0 AUDIT C Alcohol Use Questionnaire (AUDIT-C) 1. How often do you have a drink containing alcohol?: 2-3 times a week 2. How many drinks containing alcohol do you have on a typical day when you are drinking?: 1 or 2 3. How often do you have six or more drinks on one occasion?: Never Total Score: 3 LORI-7 AMB Questionnaire LORI-7 Date LORI - 7 assessed: 04/01/24 Feeling nervous, anxious, or on edge: 0 = Not at all Not being able to stop or control worryin = Not at all Worrying too much about different things: 0 = Not at all Trouble relaxin = Not at all Being so restless that it is hard to sit still: 0 = Not at all Becoming easily annoyed or irritable: 0 = Not at all Feeling afraid as if something awful might happen: 0 = Not at all Total LORI-7 score (0-4 normal; 5-9 mild; 10-14 moderate; 15-21 severe): 0 Source: Developed by Drs. Krish Zarate, Mariana Brower, Jarrell Shaw and colleagues, with an educational elva from [employer]. Review of Systems Const Denies fatigue, Denies fever(s) and Denies headache(s) Eyes Details: sees Dr Simons ENT Denies dizziness, Denies headache(s), Denies nasal congestion, Denies disequilibrium and Denies sore throat Card Denies chest pain, Denies irregular heart rhythm, Denies lightheadedness, Denies palpitations and Denies dyspnea Resp Denies cough and Denies dyspnea GI Denies abdominal pain, Denies change in bowel habits, Denies change in stool character, Denies dyspepsia, Denies heartburn and Denies nausea Denies hematuria, Denies hot flashes, Denies dysuria and Denies urinary hesitancy Musc Denies back pain, Denies myalgias, Denies joint swelling, Denies muscle weakness and Denies stiffness Skin/Breast Denies unusual bruising Neuro Denies dizziness, Denies headache(s) and Denies disequilibrium Psych Reports no additional complaints Endo Denies fatigue and Denies palpitations Jerrod/Lymph Reports no additional complaints Aller/Immun Reports seasonal rhinorrhea (Takes levocetirizine as needed) Physical exam (Primary Care) Vital Signs: Last Vital Signs Temp 97.6 F 09/22/25 08:47 Pulse 70 09/22/25 08:47 Resp 16 09/22/25 08:47 BP 130/70 09/22/25 08:47 Pulse Ox 97 09/22/25 08:47 Oxygen Delivery Method Room Air 09/22/25 08:47 BMI result Body Mass Index 25.5 Tobacco/Smoking Status: Tobacco use Status Tobacco use date assessed 09/22/25 09/22/25 08:37 Patient Tobacco Use Status Never used Tobacco 09/22/25 08:37 e-Cigarette/Vaping Use Never Used 09/22/25 08:37 PHQ-9: PHQ-9 Score PHQ-9: Total score 1 09/22/25 08:51 Depression Screening Interpretation: Negative Thrive Assessment: Date of Thrive Assessment Date Thrive assessed 09/22/25 09/22/25 08:51 Currently or been in a relationship where the following occur: No concerns reported Const General: comfortable, no acute distress and alert Orientation/consciousness: patient oriented x3 HENMT Ears: external ears normal General nose exam: Normal external nose present and No nasal discharge present Mouth: Normal oral and palatal mucosa present and moist mucous membranes Eyes General: appearance normal, both eyes and all related structures Neck Neck: Yes full ROM, Yes no lymphadenopathy and Yes supple Chest Chest palpation & inspection: normal inspection of the chest Resp Effort & Inspection: normal respiratory effort and able to speak in complete sentences Auscultation: clear to auscultation bilaterally Cardio Rate: regular rate Rhythm: regular rhythm Heart sounds: S1 normal heart sound present and S2 normal heart sound present GI Palpation (GI): Soft to palpation, nontender and no masses Auscultation: normal bowel sounds Back/Spine/Pelvis Back: No back tenderness Skin General skin exam: no rashes or lesions noted Neuro General: patient oriented x3, gait normal, tone normal, moves all extremities, Normal light touch and pain sensation and no focal motor deficits Cranial nerves: Yes CN's II-XII intact bilaterally Cognition (Neuro): normal cognition Extrem Other: Decreased range of motion on abduction more than 90 degrees and hyper reduction of left upper extremity General: Yes no joint enlargement, Yes no clubbing, cyanosis or edema and Yes no calf tenderness Psych Appearance: grossly normal and well kempt Mental Status: mental status grossly normal Speech and movement: Normal speech and movement present Affect: normal affect Results Reviewed Results Reviewed: nima: Alicia Dunbar Age/Sex: 75/F : 1950 Unit#: [id number] Attend Dr: Di Gomes MD Re09/18/25 Status: DEP REF Location: [facility] Disch: SPEC : [id number] DIMAS: 09/18/25 STATUS: COMP REQ : [id number] RECD: 09/18/[address]: Di Gomes MD COMP: 09/18/25 ENTERED: 09/18/[address] [facility] DR: ORDERED: Met Prof Fast, AST, ALT, Lipid Panel Test Result Flag Reference Sodium 141 135-145 mmol/L Potassium 4.5 3.3-5.1 mmol/L CL 108 96-108 mmol/L CO2 25 22-29 mmol/L Gap 13 12-20 BUN 17 H 9-16 mg/dL Creat 0.95 0.5-1.4 mg/dL eGFR 57 Chronic Kidney Disease: Estimated GFR < 60 mL/min/1.73m2 Severe Kidney Disease: Estimated GFR < 15 mL/min/1.73m2 FBS 101 H 60-99 mg/dL A fasting glucose from 100-125 mg/dl is considered impaired (pre-diabetes). CA 9.1 8.4-10.2 mg/dL AST (GOT) 22 5-31 U/L ALT (GPT) 14 0-31 U/L Triglyceride 91 <150 mg/dL Desirable Triglyceride: less than 150 mg/dL Borderline High Triglyceride 150-199 mg/dL High Triglyceride: 200-499 mg/dL Very High Triglyceride: greater than or equal to 5OO mg/dL Cholesterol 195 <200 mg/dL Desirable Cholesterol: less than 200 mg/dL Borderline High Cholesterol: 200-239 mg/dL High Cholesterol: greater than 239 mg/dL LDL Calculated 104 H <100 mg/dL Desirable LDL: less than 100 mg/dL Near Optimal/Above Optimal LDL: 110-129 mg/dL Borderline High LDL: 130-159 mg/dL High LDL: 160-189 mg/dL Very High LDL: greater than or equal to 190 mg/dL HDL 73 >40 mg/dL Desirable HDL: greater than 40 mg/dL Note: This HDL assay may give artificially low results in patients with liver disease. Coding Level of Care Code Est Pt Prev Care >65y(93921) Diagnoses Annual visit for general adult medical examination with abnormal findings Z00.01 Pain of left shoulder joint on movement M25.512 Essential hypertension I10 Pure hypercholesterolemia E78.00 Hyperlipidemia type: pure hypercholesterolemia Osteoporosis of lumbar spine M81.0 Seasonal allergies J30.2 Assessment & Plan Assessment & Plan (1) Annual visit for general adult medical examination with abnormal findings: Code(s): Z00.01 - Encounter for general adult medical examination with abnormal findings Plan: Latest fasting lab results reviewed with patient continue with dental visit every 6 months and regular eye exams, at least every 2 years, sees Dr. Simons. Take adequate calcium in diet and vitamin-D 3 at 2000 IU per cap once a day, in addition to weight-bearing exercises to help maintain good muscle tone and weight control. Currently being seen by Dr. Mays for her osteoporosis treatment Instructed to do self-breast exam, and continue to get yearly mammogram, up-to-date has an appointment for her repeat screening mammogram next year for 03/08/2026. Due for a colonoscopy screening with Dr. Dubon next year up-to-date with all her vaccines except for RSV and a new COVID booster (2) Pain of left shoulder joint on movement: Code(s): M25.512 - Pain in left shoulder Plan: May continue taking Aleve twice a day with food as needed or may use instead Advil ointment massaged to affected area once or twice a day, do not use both. medication at the same time. Referred for physical therapy (3) Essential hypertension: Code(s): I10 - Essential (primary) hypertension Category: Medical Plan: Blood pressure at goal of less than 130/80. Continue with current medication. Reinforced importance of following a low sodium diet, getting regular exercise, and lowering stress levels. (4) Hyperlipidemia: Code(s): E78.5 - Hyperlipidemia, unspecified Category: Medical Qualifiers: Hyperlipidemia type: pure hypercholesterolemia Qualified Code(s): E78.00 - Pure hypercholesterolemia, unspecified Plan: Reviewed recent fasting lipid profile with patient with levels within normal limits . Continue within simvastatin 20 mg taken 1 tablet every other , in addition to adherence to low-cholesterol diet and regular exercise, at least 30 minutes 3 to 4 times a week. Advised patient to make healthy food choices, eat more fruits, vegetables, whole grains, wild caught fish and low-fat dairy. Limit amount of meat and fried or fatty food products, as well as processed foods and fast foods. Follow-up scheduled with repeat fasting lipid panel in 6 months. (5) Osteoporosis of lumbar spine: Code(s): M81.0 - Age-related osteoporosis without current pathological fracture Category: Medical Plan: Currently on alendronate started by Dr. Mays, has an appointment to see her for follow-up in November 2025, requested copy of consult report. Due for repeat bone density scan next year, ordered by Dr. Mays (6) Seasonal allergies: Code(s): J30.2 - Other seasonal allergic rhinitis Category: Medical Plan: May continue taking levocetirizine 5 mg at bedtime asthma, refill sent Orders: Orders PT Evaluation and Treatment Today M25.512 - Pain in left shoulder Alanine Aminotransferase 6 Months E78.00 - Pure hypercholesterolemia, unspecified, I10 - Essential (primary) hypertension, M81.0 - Age-related osteoporosis without current pathological fracture Aspartate Amino Transferase 6 Months E78.00 - Pure hypercholesterolemia, unspecified, I10 - Essential (primary) hypertension, M81.0 - Age-related osteoporosis without current pathological fracture Basic Metabolic Panel Fasting 6 Months E78.00 - Pure hypercholesterolemia, unspecified, I10 - Essential (primary) hypertension, M81.0 - Age-related osteoporosis without current pathological fracture Vitamin D 25-OH Total 6 Months E78.00 - Pure hypercholesterolemia, unspecified, I10 - Essential (primary) hypertension, M81.0 - Age-related osteoporosis without current pathological fracture Lipid Panel 6 Months E78.00 - Pure hypercholesterolemia, unspecified, I10 - Essential (primary) hypertension, M81.0 - Age-related osteoporosis without current pathological fracture Medications: Refilled levocetirizine 5 mg PO BEDTIME 30 tabs 4RF for allergies H02.849 - Edema of unspecified eye, unspecified eyelid, R21 - Rash and other nonspecific skin eruption
[2025-09-22 08:47] VITALS: BP 130/70; PULSE 70; RESP 16; TEMP 36.4; O2SAT 97; BMI 25.5
== END 2025-09-22 09:38 | disposition home or self-care (01) ==
LOC: HO.HMCC 08:22
PROVIDERS: PCP Internal Medicine; Visit Provider Internal Medicine
DX: Z00.01 Encounter for general adult medical examination with abnormal findings (principal); M25.512 Pain in left shoulder; I10 Essential (primary) hypertension; E78.00 Pure hypercholesterolemia, unspecified; M81.0 Age-related osteoporosis without current pathological fracture; J30.2 Other seasonal allergic rhinitis

== ENCOUNTER → 2025-09-22 08:21 | Outpatient (BNVA) | payer MEDICARE, OTHER, SELFPAY | PROVIDERS: PCP Internal Medicine; Visit Provider Internal Medicine | DX: Z00.01 Encounter for general adult medical examination with abnormal findings (principal); I10 Essential (primary) hypertension; M25.512 Pain in left shoulder; E78.00 Pure hypercholesterolemia, unspecified; M81.0 Age-related osteoporosis without current pathological fracture; J30.2 Other seasonal allergic rhinitis | CPT/HCPCS: 96127; 99397 ==